=== PATIENT | female | born 1985 | race African-American/Black ===

== ENCOUNTER → 2017-01-15 | Outpatient (CLI) | payer OTHER ==
[~2017-01-15] MED LIST: ALBU1AER9 INH; ATEN-173 PO; FAMO20TA11 PO; GLIP10TA9 PO; IBUP-1427 PO; MELA5CAP PO; METF-384 PO; METF1000 PO; MULT-506 PO; [UNRECOGNIZED DRUG - OTHER] PO
[2017-01-15 18:46] LABS: ESTIMATED AVERAGE GLUCOSE 186 mg/dl; HA1C FLAG Normal (Normal)
== END | disposition home or self-care (01) ==
LOC: C.LAB1850 14:19
PROVIDERS: ATTEND Nurse Practitioner Family
DX: E11.65 Type 2 diabetes mellitus with hyperglycemia (principal)

== ENCOUNTER 2017-05-22 10:24 | Emergency (ER) | payer OTHER ==
[~2017-05-22] VITALS: Ht 162.6 cm; Wt 114.0 kg
[2017-05-22 10:26] VITALS: TEMP 37; Ht 162.6 cm; Wt 114.0 kg
--- NOTE | 2017-05-22 11:15 | EMERGENCY ROOM VISIT NOTE ---
History First contact with patient: 11:03 Chief Complaint: THROAT PAIN/INJURY Stated Complaint: THROAT PAIN History of Present Illness The patient is a 32 year old female who presents to the Emergency Room with complaints of throat pain. The patient reports that she has had pain in the left side of her throat on and off for the past 1-1.5 weeks. She describes the pain as sharp and states it is worse when she is drinking fluids. She rates the discomfort a 7/10. She states the pain is sometimes worse with movement. She denies any difficulty swallowing or difficulty breathing. She denies any chest pain, shortness of breath, cough or fever. She has not been taking any medication for her symptoms. Review of Systems A complete 10 point review of systems was reviewed with the patient with pertinent positives and negatives as per history of present illness. All else were negative. Past Medical/Surgical History Medical Problems: (1) Abdominal pain (2) DIAB CHUCK WO COMPL, TYPE II OR UNSPEC TYPE, NOT UNCNTRLD (3) FAM HX-DIABETES MELLITUS (4) FAMILY HISTORY OF OTHER CARDIOVASCULAR DISEASES (5) Foreign body sensation in throat (6) HTN (hypertension) (7) Left sided numbness (8) MIGRAINE UNSPECIFIED W/O INTRACT MGRN W/O STATUS MIGRAINOSUS (9) MORBID OBESITY (10) OVARIAN CYST NEC/NOS (11) Pharyngitis Family History Diabetes mellitus FH: cancer FH: heart disease FH: seizures Hypertension Social History Smoking Status: Former Smoker Alcohol Use: none Marital Status: single Housing Status: lives with family Occupation Status: unemployed Current/Historical Medications Scheduled Amitriptyline Hcl (Elavil), 10 MG PO HS Atenolol (Tenormin), 25 MG PO QAM Bupropion (Wellbutrin-Xl), 1 TAB PO DAILY Famotidine (Pepcid), 20 MG PO BID Glipizide (Glucotrol), 10 MG PO BID Insulin Aspart (novoLOG INSULIN PUMP ), 1 EA N/A UD Loratadine (Claritin), 10 MG PO DAILY Losartan Potassium (Losartan Potassium), 1 TAB PO DAILY Melatonin (Melatonin), 5 MG PO HS Metformin Hcl (Glucophage), 1,000 MG PO QAM Metformin Hcl (Glucophage), 1,500 MG PO QPM Multivitamin (Multivitamin), 1 TAB PO DAILY Scheduled PRN Albuterol Sulfate (Proair Respiclick), 2 PUFFS INH Q4 PRN for Shortness of Breath Fluticasone Propionate (Nasal) (Flonase Allergy Relief), 1 SPRAYS JANESSA DAILY PRN for ALLERGIES Saline ([place]), 1 SPRY JANESSA Q8 PRN for DRYNESS Physical Exam Vital Signs Date Time Temp Pulse Resp B/P (MAP) Pulse Ox O2 Delivery O2 Flow Rate FiO2 05/22/17 11:24 79 16 155/72 98 05/22/17 10:26 37.0 97 20 167/97 95 Room Air Physical Exam VITALS: Vitals are noted on the nurse's note and reviewed by myself. Vital signs stable. GENERAL: This is a 32-year-old female, in no acute distress, nondiaphoretic, well-developed well-nourished. SKIN: The skin was without rashes. EARS: External auditory canals clear, tympanic membranes pearly prakash without erythema or effusion bilaterally. EYES: Pupils equal round and reactive to light and accommodation. NOSE: Patent, turbinates without inflammation or discharge. MOUTH: Mucous membranes moist. Tonsils are not enlarged. Pharynx without erythema or exudate. Uvula midline. Airway patent. NECK: Supple without nuchal rigidity. There is a slightly enlarged, mobile and tender left anterior cervical lymph node. HEART: Regular rate and rhythm without murmurs gallops or rubs. LUNGS: Clear to auscultation bilaterally without wheezes, rales or rhonchi. NEURO: Patient was alert and oriented to person place and time. Medical Decision & Procedures Medical Decision Differential diagnosis includes strep pharyngitis, mononucleosis, GERD, lymphadenopathy, malignancy, mass, among others. The patient was evaluated as above. On exam she does appear to have a swollen node in the area of her discomfort. This is likely the cause of her pain. She was instructed to use warm compresses and take ibuprofen for symptomatic improvement. She has no difficulty breathing or swallowing ever do not feel that further workup needs to be performed at this time. She was encouraged to follow-up with her primary care provider for further evaluation and recheck of her symptoms. She verbalized understanding of my assessment and treatment plan and was discharged home in good condition. Medication Reconcilliation Current Medication List: was personally reviewed by me Blood Pressure Screening Patient's blood pressure: Elevated blood pressure Blood pressure disposition: Referred to PCP Impression Primary Impression: Throat discomfort Departure Information Dispostion Home / Self-Care Condition GOOD Referrals Neena Mcgrath M.D. (PCP) Patient Instructions My [facility] Additional Instructions You have a swollen lymph node in your neck which is likely causing your pain. For pain control, you can use the following [id number] medicines (if >12 yo): - Regular strength (325mg/tab) Tylenol (acetaminophen) 2 tabs every 4-6 hours as needed. Do not exceed 12 tablets in a 24 hour period. Avoid taking more than 4 grams (4000 mg) of Tylenol per day. This includes any other sources of acetaminophen you may take on a regular basis. - Regular strength (200 mg/tab) Advil (ibuprofen) 1-2 tabs every 4-6 hours as needed. Do not exceed a dose of 3200 mg per day. Follow-up with your primary care provider if your symptoms do not improve within one to 2 weeks. Return to the emergency department with any worsening pain, difficulty swallowing/breathing, or any other new/concerning symptoms.
[2017-05-22] MEDS ORDERED: SALI0.657 NAE (11:22)
[2017-05-22] MEDS ORDERED: CZR25 PO (11:22)
[2017-05-22] MEDS ORDERED: AMIT10TA6 PO (11:22)
[2017-05-22] MEDS ORDERED: BUPRTAB51 PO (11:22)
[2017-05-22] MEDS ORDERED: INSPMPNVLG (11:22)
[2017-05-22] MEDS ORDERED: CLR10 PO (11:22)
[2017-05-22] MEDS ORDERED: FLUT0.15 NAE (11:22)
[2017-05-22] MEDS ORDERED: ALBU18002 INH (11:23)
[2017-05-22 11:24] VITALS: BP 155/72; PULSE 79; O2SAT 98
== END 2017-05-22 11:24 | disposition home or self-care (01) ==
LOC: C.EDB 10:26 → C.EDD 11:24
DX: R07.0 Pain in throat (principal); E11.9 Type 2 diabetes mellitus without complications; Z83.3 Family history of diabetes mellitus; I10 Essential (primary) hypertension; E66.9 Obesity, unspecified; Z82.0 Family history of epilepsy and other diseases of the nervous system; Z82.49 Family history of ischemic heart disease and other diseases of the circulatory system; Z87.891 Personal history of nicotine dependence

== ENCOUNTER 2018-11-18 07:33 | Inpatient (IN) ==
[2018-11-18] MEDS ORDERED: OXYTOCIN 30 UNITS/500 ML BAG IV PRN (09:07)
[2018-11-18] MEDS ORDERED: LACTATED RINGER'S 1,000 ML IV PRN (09:07)
[2018-11-18] MEDS ORDERED: D5W AND 1/4NSS 1,000 ML IV SCH (09:30)
--- NOTE | 2018-11-18 09:41 | Labor Progress Brief Note ---
Date of Service November 18, 2018 Met pt and family H&P done Induction for pregestational DM FHR; CAT1 Ctx; minimal VE ft/soft/post FEW; 7.5lbs by leopards will start Cytotec monitor BS via pump will start insulin drip when in active labor Results & Data Vital Signs (Past 12 Hours) Vital Signs Temp Pulse Resp BP Pulse Ox 11/18/18 08:13 109 H 139/75 11/18/18 08:07 36.9 C 18 97 11/18/18 07:57 111 H 98
[2018-11-18 09:45] LABS: Mean Corpuscular Volume 72.7 fL (80-100); Platelet Count 157 K/uL (130-400); RDW Coefficient of Variation 16.6 % (11.5-14.5); RDW Standard Deviation 44.3 fL (36.4-46.3); Red Blood Count 4.54 M/uL (4.2-5.4); White Blood Count 7.87 K/uL (4.8-10.8)
[2018-11-18] MEDS: miSOPROStol 50 MCG TAB PO SCH ×2 (09:59→14:15)
[2018-11-18 10:09] LABS: Mean Corpuscular Hgb Conc 33.3 g/dL (32-36)
[2018-11-18] MEDS: LACTATED RINGER'S 1,000 ML IV SCH ×2 (10:40→19:00)
[2018-11-18] MEDS ORDERED: miSOPROStol 50 MCG TAB PO SCH (12:00)
[2018-11-18] MEDS ORDERED: DINOPROSTONE 10 MG INSERT PV ONE (21:45)
--- NOTE | 2018-11-18 23:22 | Labor Progress Brief Note ---
Date of Service November 18, 2018 Induction for Pregestational DM Received 2 doses Cytotec FHR; CAT1 Ctx; 2-4mins VE; ft/50/post Will feed pt dinner check BS Reevaluate ctx pattern to see if she can be given another cervical ripening agent ' Results & Data Vital Signs (Past 12 Hours) Vital Signs Temp Pulse Resp BP 11/18/18 23:00 20 11/18/18 22:30 20 11/18/18 22:00 20 11/18/18 21:25 20 11/18/18 21:00 20 11/18/18 20:30 37.0 C 20 11/18/18 20:14 96 H 141/77 H 11/18/18 20:08 20 11/18/18 19:00 20 11/18/18 18:45 20 11/18/18 17:55 20 11/18/18 17:30 20 11/18/18 17:00 20 11/18/18 16:45 16 11/18/18 15:33 97 H 139/73 11/18/18 15:30 20 11/18/18 14:50 36.9 C 20 11/18/18 12:07 102 H 144/72 H 11/18/18 12:00 36.8 C 16
[2018-11-19] MEDS: miSOPROStol 50 MCG TAB PO SCH ×5 (00:16→22:12)
[2018-11-19] MEDS: LACTATED RINGER'S 1,000 ML IV SCH ×3 (02:20→17:13)
--- NOTE | 2018-11-19 08:53 | Obstetrical Progress Note ---
Date of Service November 19, 2018 Physical Exam Genitourinary: Manual OB Exam: + cervical dilation fingertip, + cervical effacement 50% and + station high OB Exam Monitor Tracing: + external FHT monitor used, + external uterine monitor used, + category I and + normal FHT variability Will allow to shower plan for Cytotec for day 2 IOL for diabetes EFW 8.5 lbs. Results & Data Vital Signs (Past 12 Hours) Vital Signs Temp Pulse Resp BP 11/19/18 07:02 37.0 C 100 H 20 134/73 11/19/18 06:25 36.9 C 18 11/19/18 06:10 100 H 127/71 11/19/18 05:07 18 11/19/18 02:00 18 11/19/18 01:00 18 11/18/18 23:19 106 H 128/64 11/18/18 23:11 36.9 C 18 11/18/18 23:00 20 11/18/18 22:30 20 11/18/18 22:00 20 11/18/18 21:25 20 11/18/18 21:00 20
--- NOTE | 2018-11-19 18:46 | Obstetrical Progress Note ---
Date of Service November 19, 2018 Physical Exam Genitourinary: Manual OB Exam: + cervical dilation 1 cm, + cervical effacement 50% and + station high OB Exam Monitor Tracing: + external FHT monitor used, + external uterine monitor used, + category I and + normal FHT variability blood sugars OK contractions every 3-4 minutes Results & Data Vital Signs (Past 12 Hours) Vital Signs Temp Pulse Resp BP 11/19/18 18:24 36.8 C 90 18 142/87 H 11/19/18 15:35 36.9 C 95 H 18 143/79 H 11/19/18 12:03 36.9 C 100 H 20 150/77 H 11/19/18 09:37 36.9 C 102 H 18 134/74 11/19/18 07:02 37.0 C 100 H 20 134/73
[2018-11-19] MEDS ORDERED: PHARMACY GLYCEMIC MGMT CONSULT PRN (20:55)
[2018-11-19] MEDS ORDERED: Nursing to Pharmacy Communication ONE (21:19)
[2018-11-19] MEDS ORDERED: GLUCAGON FOR INJ 1 MG VIAL SQ PRN (21:30)
[2018-11-19] MEDS ORDERED: INSULIN ASPART 100 UNITS/ML VIAL SC PRN (21:30)
[2018-11-19] MEDS ORDERED: GLUCOSE 40% GEL 15 GM TUBE PO PRN (21:30)
[2018-11-19] MEDS ORDERED: DEXTROSE 50% 50 ML SYRINGE IV PRN (21:30)
[2018-11-19] MEDS ORDERED: CARBOHYDRATES FOR HYPOGLYCEMIA PO PRN (21:30)
[2018-11-19] MEDS ORDERED: GLUCOSE 10 TABS/TUBE PO PRN (21:30)
[2018-11-19] MEDS: BUTORPHANOL TARTRATE 2 MG/ML VIAL IV PRN (22:08)
[2018-11-20] MEDS: LACTATED RINGER'S 1,000 ML IV SCH ×4 (01:21→20:06)
[2018-11-20] MEDS: BUTORPHANOL TARTRATE 2 MG/ML VIAL IV PRN (01:52)
[2018-11-20] MEDS: miSOPROStol 50 MCG TAB PO SCH ×2 (02:19→07:11)
[2018-11-20] MEDS: NovoLOG INSULIN PUMP SCH ×2 (08:10→14:34)
[2018-11-20] MEDS ORDERED: OXYTOCIN 30 UNITS/500 ML BAG IV PRN (10:23)
--- NOTE | 2018-11-20 10:26 | Labor Progress Brief Note ---
Date of Service November 20, 2018 Pt doing well Induction for pregestational DM Day 3 s/P 2 days of cervical ripening FHR; CAT1 Ctx 2-4mins VE; /50/-3 will start Pitocin Results & Data Vital Signs (Past 12 Hours) Vital Signs Temp Pulse Resp BP Pulse Ox 11/20/18 08:56 97 H 96 11/20/18 08:51 96 H 96 11/20/18 08:46 98 H 95 11/20/18 08:41 95 H 96 11/20/18 08:36 101 H 97 11/20/18 07:06 36.8 C 89 18 134/77 11/20/18 03:48 96 H 94 11/20/18 03:46 97 H 94 11/20/18 03:43 97 H 95 11/20/18 03:38 91 H 95 11/20/18 03:33 94 H 94 11/20/18 03:28 94 H 94 11/20/18 03:23 92 H 95 11/20/18 03:21 94 H 94 11/20/18 03:18 94 H 94 11/20/18 03:15 95 H 94 11/20/18 03:13 97 H 96 11/20/18 03:08 96 H 95 11/20/18 03:03 97 H 95 11/20/18 02:52 99 H 95 11/20/18 02:47 96 H 94 11/20/18 02:42 96 H 95 11/20/18 02:41 98 H 94 11/20/18 02:37 99 H 94 11/20/18 02:35 96 H 94 11/20/18 02:32 97 H 94 11/20/18 02:30 96 H 94 11/20/18 02:27 94 H 94 11/20/18 02:24 92 H 94 11/20/18 02:22 96 H 95 11/20/18 02:18 92 H 94 11/20/18 02:17 93 H 93 11/20/18 02:12 89 94 11/20/18 02:07 89 94 11/20/18 02:02 90 95 11/20/18 01:58 91 H 94 11/20/18 01:57 95 H 95 11/20/18 01:55 90 141/79 H 11/20/18 01:52 97 H 97 11/20/18 01:47 101 H 96 11/20/18 01:42 102 H 95 11/19/18 23:57 88 96 11/19/18 23:52 90 97 11/19/18 23:46 105 H 93 11/19/18 23:44 90 97 11/19/18 23:39 94 H 96 11/19/18 23:34 87 97 11/19/18 23:29 88 95 11/19/18 23:24 89 95 11/19/18 23:21 90 94 11/19/18 23:19 85 95 11/19/18 23:14 91 H 94 11/19/18 23:09 86 95 11/19/18 23:04 104 H 95 11/19/18 23:03 90 94 11/19/18 22:59 92 H 94 11/19/18 22:57 93 H 94 11/19/18 22:54 91 H 94 11/19/18 22:51 86 94 11/19/18 22:49 96 H 93 11/19/18 22:45 88 93 11/19/18 22:44 90 94 11/19/18 22:39 91 H 95 11/19/18 22:34 91 H 95 11/19/18 22:33 92 H 94 11/19/18 22:29 86 94 11/19/18 22:28 94 H 94
--- NOTE | 2018-11-20 13:39 | Pharmacy Report ---
Glycemic Control Consultation - Date of Service November 20, 2018 - Scope Scope: Glycemic Pharmacist consulted by Dr Resendez on 11/19/18 for glycemic control and to write orders per [facility] inpatient glycemic control protocol - Objective Weight: 118.841 kg Accuchecks BSG (last 24hrs): 11/19/18 11/19/18 11/19/18 13:34 15:33 17:30 POC Glucose 87 78 77 11/19/18 11/19/18 11/19/18 19:30 21:33 23:33 POC Glucose 74 97 59 L* 11/20/18 11/20/18 11/20/18 00:00 01:50 03:42 POC Glucose 78 126 H 64 L* 11/20/18 11/20/18 11/20/18 03:44 04:26 06:28 POC Glucose 69 L* 105 H 61 L* 11/20/18 11/20/18 11/20/18 06:51 08:55 10:57 POC Glucose 87 147 H 58 L* 11/20/18 11/20/18 11/20/18 10:59 11:20 12:32 POC Glucose 57 L* 88 46 L* 11/20/18 11/20/18 12:33 12:55 POC Glucose 50 L* 78 - Recent Pertinent Medications Outpatient Anti-diabetic Regimen: * Insulin pump: 2.5u/hr 2747-7104, 2.75u/hr 5848-0448, 2.9u/hr 5847-0215 * A1c = unreliable during - Assessment & Plan Assessment & Plan: ASSESSMENT: * Ms. Worrell is a 33yo AA F unbeknownst to the pharmacy glycemic service. PMHx consistent with: DM-II, PCOS, h/o migraines, obesity. ? Possible hypoglycemia unawareness? She was admitted evening of 11/19/18 with her insulin pump (please see settings above). Today, she has recurrent lows: 40s, 50s. * I spoke with patient bedside and had her reduce her basal rate by 10%. Spoke with nursing, it was decided we will initiate insulin infusion/IVFs per L&D p rotocols once she goes into active labor. If she continues to have lows, please start insulin infusion prior to active labor. PLAN FOR INPATIENT GLYCEMIC CONTROL: * Starting IV insulin infusion per L & D protocol * Goal Range 90 - 105 mg/dl * Please see IVFs orders * Please note that the plan above was derived based on current level of insulin resistance and hospital stress. These recommendations are appropriate for inpatient admission only. Plan of care upon discharge will need to be reassessed to avoid potential outpatient hypo/hyperglycemia. Thank you.
[2018-11-20] MEDS ORDERED: SODIUM CHLORIDE 0.9% 1000ML 1,000 ML IV PRN (14:00)
[2018-11-20] MEDS ORDERED: INSULIN REGULAR 250 UNITS in SODIUM CHLORIDE 0.9% 247.5 ML IV PRN (14:00)
[2018-11-20] MEDS: DEXTROSE 5% 1,000 ML IV SCH (16:00)
[2018-11-20] MEDS ORDERED: ePHEDrine sulfate 50 MG/ML AMP ONE (16:21)
[2018-11-20] MEDS ORDERED: BUPIVACAINE 0.25% 30 ML VIAL ONE (16:21)
[2018-11-20] MEDS ORDERED: fentaNYL citrate 100 MCG/2 ML VIAL ONE (16:22)
[2018-11-20] MEDS ORDERED: fentaNYL 2MCG/ML ROPIV 1.25MG/ML 100 ML BAG EPI ONE (16:22)
--- NOTE | 2018-11-20 16:34 | Anesthesiology Consultation ---
Date of Service November 20, 2018 Assessment & Plan (1) Encounter for pre-operative examination: Chart Review Chart Review: Acceptable Risk for Labor Epidural History Height/Weight Height: 5 ft 4 in Weight: 118.841 kg Allergies Allergy/AdvReac Type Severity Reaction Status Date / Time lisinopril AdvReac Intermediate COUGH Verified 11/18/18 07:58 peach AdvReac Verified 11/19/18 11:33 pineapple AdvReac Verified 11/19/18 11:33 fruit Allergy Swelling Uncoded 11/18/18 07:58 of Lip/Tongue/Throat Medications Home Medications Medication Instructions Recorded Confirmed Last Taken aspirin 81 mg PO DAILY 11/18/18 11/18/18 11/18/18 ferrous sulfate 325 mg PO DAILY 11/18/18 11/18/18 11/18/18 insulin aspart U-100 [Novolog 1 sliding scale dose CONTINUOUS 11/18/18 11/18/18 11/18/18 U-100 Insulin aspart] SUBCUTANEOUS INFUSION USEASDIRECTD metformin 1,000 mg PO DAILY 11/18/18 11/18/18 11/18/18 metformin 1,500 mg PO DAILY 11/18/18 11/18/18 11/17/18 vit [id number] 1 tab PO DAILY 11/18/18 11/18/18 11/18/18 [ Vitamin] vitamin B complex [B 1 tab PO DAILY 11/18/18 11/18/18 11/18/18 Complex-Vitamin B12] Active Medications Generic Name Dose Route Start Last Admin Trade Name Freq PRN Reason Stop Dose Admin Lactated Ringer's 1,000 mls @ 125 mls/hr 11/18/18 10:30 11/20/18 10:11 Lr IV 12/18/18 10:29 125 mls/hr .Q8H LILA Administration Oxytocin 30 units in 500 mls @ 8 mls/hr 11/20/18 10:23 11/20/18 14:12 Pitocin IV 11/22/18 10:22 0.48 units/hr .Q24H PRN 8 mls/hr Labor Induction/Augmentation Titration Protocol 0.48 UNITS/HR Dextrose 1,000 mls @ 100 mls/hr 11/20/18 14:00 11/20/18 16:00 D5w IV 12/20/18 13:59 100 mls/hr .Q10H LILA Administration Protocol Insulin Human Regular 250 250 mls @ 0 mls/hr 11/20/18 14:00 11/20/18 16:09 units/ Sodium Chloride IV 12/20/18 13:59 0.5 mls/hr Q24H PRN Administration BSG 80mg/dL or above Protocol Per Protocol Insulin Aspart 1 ea 11/20/18 07:30 11/20/18 14:34 Novolog Insulin Pump N/A 12/20/18 07:29 Not Given ACHS LILA Protocol Insulin Aspart 0 units 11/19/18 21:30 11/19/18 21:35 Novolog Aspart SC 12/19/18 21:29 1,000 units PRN PRN Administration MANAGE SUGARS Miscellaneous 1 ea 11/20/18 14:00 11/20/18 14:36 Pending Order N/A 12/20/18 13:59 Not Given Q3H LILA Past Medical History Medical History HTN (hypertension) (Chronic) for past 6 years; has been on Lisinopril in past but now allergic; also on Atenolol but not on meds currently due to Chronic back pain since 2011 Diabetic neuropathy left foot History of PCOS since 2013 Hx of migraines since age 11 Type 2 diabetes mellitus for past 8 years; using Insulin pump for past 2 years Past Family History Family History Mother Diabetes Hypertension Stroke Grandmother No problems noted. Father Diabetes Grandmother (Maternal) Diabetes Hypertension Stroke Past Surgical History Surgical History History of left salpingo-oophorectomy 2016 Hx of appendectomy age 13 Social History Smoking Status: Former smoker tobacco type: cigarettes Smoking End Date: 10 years ago Hx Alcohol Use: No Hx Substance Use: No substance use type: does not use Physical Exam Vital Signs Last Vital Signs Temp 36.9 C 11/20/18 15:15 Pulse 86 11/20/18 16:27 Resp 18 11/20/18 15:15 BP 137/70 11/20/18 15:27 Pulse Ox 100 11/20/18 16:27 Testing Laboratory Results 11/18/18 09:28 11/20/18 11/20/18 11/20/18 15:56 14:19 13:59 POC Glucose 91 74 64 L* 11/20/18 11/20/18 11/20/18 13:58 12:55 12:33 POC Glucose 65 L* 78 50 L* 11/20/18 11/20/18 11/20/18 12:32 11:20 10:59 POC Glucose 46 L* 88 57 L* 11/20/18 11/20/18 11/20/18 10:57 08:55 06:51 POC Glucose 58 L* 147 H 87 11/20/18 06:28 POC Glucose 61 L*
[2018-11-20] MEDS ORDERED: NALOXONE HCL 1 MG in SODIUM CHLORIDE 0.9% 1000ML 1,000 ML IV PRN (17:19)
[2018-11-20] MEDS ORDERED: NALOXONE HCL 0.4 MG/1 ML VIAL/CARP IV PRN (17:19)
[2018-11-20] MEDS ORDERED: ONDANSETRON INJ 2 MG/ML 2 ML VIAL IV PRN (17:19)
[2018-11-20] MEDS ORDERED: ePHEDrine sulfate 50 MG/ML AMP IV PRN (17:19)
[2018-11-20] MEDS: fentaNYL 2MCG/ML ROPIV 1.25MG/ML 100 ML BAG EPI PRN (23:37)
[2018-11-20] MEDS ORDERED: Nursing to Pharmacy Communication ONE (23:40)
[2018-11-21] MEDS: fentaNYL 2MCG/ML ROPIV 1.25MG/ML 100 ML BAG EPI PRN ×3 (01:14→14:22)
[2018-11-21] MEDS: DEXTROSE 5% 1,000 ML IV SCH ×2 (02:32→14:29)
[2018-11-21] MEDS: LACTATED RINGER'S 1,000 ML IV SCH (03:14)
--- NOTE | 2018-11-21 05:25 | Labor Progress Brief Note ---
Date of Service November 21, 2018 Pt doing well FHR ; CAT1 scalp electrode on Ctx':1-2 mins VE; 6/100/-2 +meconium seen Pitocin d/sharee oxygen mask on Results & Data Vital Signs (Past 12 Hours) Vital Signs Temp Pulse Resp BP Pulse Ox 11/21/18 05:18 100 H 97 11/21/18 05:13 107 H 97 11/21/18 05:08 108 H 94 11/21/18 05:03 90 96 11/21/18 04:58 92 H 96 11/21/18 04:53 92 H 96 11/21/18 04:50 103 H 94 11/21/18 04:48 94 H 97 11/21/18 04:43 95 H 96 11/21/18 04:38 95 H 98 11/21/18 04:36 98 H 94 11/21/18 04:33 92 H 96 11/21/18 04:28 94 H 96 11/21/18 04:27 37.2 C 18 11/21/18 04:23 92 H 95 11/21/18 04:18 93 H 94 11/21/18 04:15 97 H 135/79 11/21/18 04:13 93 H 94 11/21/18 04:08 93 H 94 11/21/18 04:06 93 H 94 11/21/18 04:03 94 H 94 11/21/18 04:01 94 H 94 11/21/18 03:58 92 H 95 11/21/18 03:55 92 H 94 11/21/18 03:53 94 H 94 11/21/18 03:50 94 H 94 11/21/18 03:48 95 H 94 11/21/18 03:44 97 H 94 11/21/18 03:43 98 H 94 11/21/18 03:38 97 H 94 11/21/18 03:33 98 H 94 11/21/18 03:28 97 H 95 11/21/18 03:27 96 H 94 11/21/18 03:23 97 H 94 11/21/18 03:22 97 H 94 11/21/18 03:18 98 H 95 11/21/18 03:15 37.3 C 99 H 18 135/75 94 11/21/18 03:13 99 H 95 11/21/18 03:10 98 H 94 11/21/18 03:08 98 H 95 11/21/18 03:03 104 H 95 11/21/18 03:02 100 H 94 11/21/18 02:57 100 H 94 11/21/18 02:52 99 H 92 11/21/18 02:47 100 H 94 11/21/18 02:46 98 H 94 11/21/18 02:42 99 H 94 11/21/18 02:37 100 H 94 11/21/18 02:32 102 H 94 11/21/18 02:29 101 H 94 11/21/18 02:27 102 H 94 11/21/18 02:24 105 H 94 11/21/18 02:22 104 H 95 11/21/18 02:18 104 H 94 11/21/18 02:17 99 H 95 11/21/18 02:15 100 H 153/74 H 11/21/18 02:12 101 H 95 11/21/18 02:08 100 H 94 11/21/18 02:07 101 H 95 11/21/18 02:02 106 H 94 11/21/18 02:00 100 H 94 11/21/18 01:57 99 H 95 11/21/18 01:53 105 H 94 11/21/18 01:52 99 H 94 11/21/18 01:47 102 H 94 11/21/18 01:42 104 H 95 11/21/18 01:41 101 H 94 11/21/18 01:37 101 H 95 11/21/18 01:36 100 H 94 11/21/18 01:32 106 H 95 11/21/18 01:27 97 H 95 11/21/18 01:22 37.4 C 107 H 18 147/74 H 95 11/21/18 01:17 106 H 96 11/21/18 01:12 101 H 96 11/21/18 01:10 100 H 94 11/21/18 01:07 98 H 96 11/21/18 01:02 101 H 96 11/21/18 00:57 96 H 95 11/21/18 00:56 98 H 94 11/21/18 00:52 102 H 95 11/21/18 00:47 96 H 96 11/21/18 00:42 110 H 97 11/21/18 00:37 105 H 96 11/21/18 00:32 104 H 95 11/21/18 00:27 107 H 96 11/21/18 00:23 120 H 94 11/21/18 00:22 110 H 98 11/21/18 00:17 104 H 136/63 96 11/21/18 00:12 107 H 97 11/21/18 00:07 101 H 95 11/21/18 00:02 101 H 97 11/20/18 23:57 96 H 98 11/20/18 23:52 103 H 97 11/20/18 23:47 109 H 97 11/20/18 23:42 105 H 98 11/20/18 23:37 107 H 98 11/20/18 23:32 112 H 98 11/20/18 23:27 103 H 96 11/20/18 23:22 106 H 95 11/20/18 23:17 108 H 97 11/20/18 23:15 37.3 C 16 11/20/18 23:14 102 H 138/68 11/20/18 23:12 101 H 96 11/20/18 23:07 108 H 96 11/20/18 23:02 108 H 98 11/20/18 22:58 106 H 130/66 11/20/18 22:57 111 H 97 11/20/18 22:52 105 H 96 11/20/18 22:47 109 H 95 11/20/18 22:44 104 H 130/70 11/20/18 22:42 104 H 95 11/20/18 22:37 103 H 95 11/20/18 22:32 104 H 95 11/20/18 22:30 103 H 136/66 11/20/18 22:27 99 H 95 11/20/18 22:22 99 H 95 11/20/18 22:17 101 H 96 11/20/18 22:13 96 H 136/67 11/20/18 22:12 102 H 96 11/20/18 22:07 99 H 97 11/20/18 22:02 102 H 99 11/20/18 21:59 98 H 133/68 11/20/18 21:57 99 H 98 11/20/18 21:52 100 H 99 11/20/18 21:47 110 H 99 11/20/18 21:43 96 H 136/66 11/20/18 21:42 100 H 99 11/20/18 21:37 98 H 99 11/20/18 21:32 104 H 98 11/20/18 21:30 102 H 135/67 11/20/18 21:27 99 H 97 11/20/18 21:22 97 H 98 11/20/18 21:17 93 H 96 11/20/18 21:15 100 H 160/89 H 11/20/18 21:12 100 H 99 11/20/18 21:07 104 H 99 11/20/18 21:02 104 H 97 11/20/18 20:59 99 H 164/83 H 11/20/18 20:57 102 H 98 11/20/18 20:52 103 H 97 11/20/18 20:47 104 H 98 11/20/18 20:45 96 H 156/95 H 11/20/18 20:42 92 H 97 11/20/18 20:37 91 H 96 11/20/18 20:32 98 H 97 11/20/18 20:29 91 H 137/68 11/20/18 20:27 100 H 98 11/20/18 20:22 99 H 96 11/20/18 20:20 94 H 155/81 H 11/20/18 20:17 97 H 96 11/20/18 20:12 91 H 99 11/20/18 20:07 95 H 98 11/20/18 20:02 90 99 11/20/18 19:59 36.9 C 96 H 18 139/82 11/20/18 19:57 95 H 98 11/20/18 19:52 91 H 98 11/20/18 19:47 91 H 100 11/20/18 19:43 93 H 145/95 H 11/20/18 19:42 89 99 11/20/18 19:37 90 100 11/20/18 19:32 90 100 11/20/18 19:29 91 H 145/95 H 11/20/18 19:28 95 H 93 11/20/18 19:27 98 H 100 11/20/18 19:22 99 H 97 11/20/18 19:21 88 90 11/20/18 19:17 92 H 95 11/20/18 19:16 97 H 94 11/20/18 19:12 102 H 97 11/20/18 19:11 88 93 11/20/18 19:07 99 H 88 L 11/20/18 19:06 93 H 92 11/20/18 19:02 92 H 100 11/20/18 18:59 20 11/20/18 18:57 86 97 11/20/18 18:52 85 99 11/20/18 18:47 85 98 11/20/18 18:44 89 141/72 H 11/20/18 18:42 90 100 11/20/18 18:37 92 H 100 11/20/18 18:32 96 H 100 11/20/18 18:28 100 H 18 139/74 11/20/18 18:27 91 H 100 11/20/18 18:22 97 H 100 11/20/18 18:17 85 100 11/20/18 18:13 95 H 138/71 11/20/18 18:12 89 100 11/20/18 18:07 85 100 11/20/18 18:02 90 100 11/20/18 17:59 87 125/69 11/20/18 17:57 89 100 11/20/18 17:52 94 H 100 11/20/18 17:47 92 H 100 11/20/18 17:42 86 100 11/20/18 17:41 88 134/66 11/20/18 17:38 90 134/69 11/20/18 17:37 96 H 99 11/20/18 17:35 96 H 101/55 L 11/20/18 17:32 88 114/58 L 97 11/20/18 17:29 91 H 115/56 L 11/20/18 17:27 89 99 11/20/18 17:26 89 115/59 L 11/20/18 17:23 90 115/59 L 11/20/18 17:22 97 H 98
[2018-11-21] MEDS ORDERED: Nursing to Pharmacy Communication ONE (06:19)
[2018-11-21] MEDS ORDERED: LACTATED RINGER'S 1,000 ML IV SCH ×4 (06:30→17:45)
--- NOTE | 2018-11-21 08:56 | Labor Progress Brief Note ---
Date of Service November 21, 2018 Pt doing well preg. DM AROM + meconium FHR; CAT1 Pit; OFF VE; 9/100/-1 Results & Data Vital Signs (Past 12 Hours) Vital Signs Temp Pulse Resp BP Pulse Ox 11/21/18 08:53 98 H 98 11/21/18 08:48 109 H 97 11/21/18 08:43 105 H 99 11/21/18 08:38 92 H 96 11/21/18 08:33 90 96 11/21/18 08:28 90 95 11/21/18 08:23 93 H 96 11/21/18 08:18 91 H 96 11/21/18 08:16 93 H 132/63 11/21/18 08:13 90 96 11/21/18 08:08 93 H 98 11/21/18 08:03 98 H 98 11/21/18 08:00 20 11/21/18 07:58 97 H 98 11/21/18 07:53 114 H 96 11/21/18 07:48 96 H 96 11/21/18 07:43 90 96 11/21/18 07:38 92 H 95 11/21/18 07:33 92 H 96 11/21/18 07:30 20 11/21/18 07:28 93 H 96 11/21/18 07:23 93 H 97 11/21/18 07:18 93 H 95 11/21/18 07:15 90 137/88 11/21/18 07:13 95 H 95 11/21/18 07:08 103 H 98 11/21/18 07:03 97 H 95 11/21/18 07:00 37.4 C 16 11/21/18 06:59 99 H 93 11/21/18 06:58 96 H 93 11/21/18 06:53 98 H 94 11/21/18 06:48 105 H 89 L 11/21/18 06:43 93 H 86 L 11/21/18 06:39 91 H 94 11/21/18 06:38 91 H 94 11/21/18 06:34 99 H 94 11/21/18 06:33 93 H 95 11/21/18 06:29 93 H 94 11/21/18 06:28 91 H 95 11/21/18 06:24 91 H 94 11/21/18 06:23 93 H 95 11/21/18 06:19 94 H 94 11/21/18 06:18 91 H 94 11/21/18 06:15 37.1 C 100 H 18 145/85 H 11/21/18 06:13 93 H 98 11/21/18 06:08 95 H 94 11/21/18 06:03 92 H 94 11/21/18 06:01 92 H 94 11/21/18 05:58 92 H 95 11/21/18 05:55 92 H 94 11/21/18 05:53 94 H 94 11/21/18 05:50 92 H 94 11/21/18 05:48 95 H 94 11/21/18 05:45 94 H 94 11/21/18 05:43 93 H 95 11/21/18 05:39 96 H 94 11/21/18 05:38 96 H 95 11/21/18 05:33 99 H 96 11/21/18 05:29 37.1 C 18 11/21/18 05:28 104 H 92 11/21/18 05:23 110 H 97 11/21/18 05:18 100 H 97 11/21/18 05:13 107 H 97 11/21/18 05:08 108 H 94 11/21/18 05:03 90 96 11/21/18 04:58 92 H 96 11/21/18 04:53 92 H 96 11/21/18 04:50 103 H 94 11/21/18 04:48 94 H 97 11/21/18 04:43 95 H 96 11/21/18 04:38 95 H 98 11/21/18 04:36 98 H 94 11/21/18 04:33 92 H 96 11/21/18 04:28 94 H 96 11/21/18 04:27 37.2 C 18 11/21/18 04:23 92 H 95 11/21/18 04:18 93 H 94 11/21/18 04:15 97 H 135/79 11/21/18 04:13 93 H 94 11/21/18 04:08 93 H 94 11/21/18 04:06 93 H 94 11/21/18 04:03 94 H 94 11/21/18 04:01 94 H 94 11/21/18 03:58 92 H 95 11/21/18 03:55 92 H 94 11/21/18 03:53 94 H 94 07/14 03:50 94 H 94 07/14/19 03:48 95 H 94 07/14 03:44 97 H 94 14 03:43 98 H 94 0714 03:38 97 H 94 14 03:33 98 H 94 14 03:28 97 H 95 11/21/18 03:27 96 H 94 11/21/18 03:23 97 H 94 11/21/18 03:22 97 H 94 14 03:18 98 H 95 14 03:15 37.3 C 99 H 18 135/75 94 11/21/18 03:13 99 H 95 11/21/18 03:10 98 H 94 11/21/18 03:08 98 H 95 11/21/18 03:03 104 H 95 11/21/18 03:02 100 H 94 11/21/18 02:57 100 H 94 11/21/18 02:52 99 H 92 11/21/18 02:47 100 H 94 11/21/18 02:46 98 H 94 14 02:42 99 H 94 11/21/18 02:37 100 H 94 14 02:32 102 H 94 11/21/18 02:29 101 H 94 11/21/18 02:27 102 H 94 11/21/18 02:24 105 H 94 11/21/18 02:22 104 H 95 11/21/18 02:18 104 H 94 11/21/18 02:17 99 H 95 11/21/18 02:15 100 H 153/74 H 11/21/18 02:12 101 H 95 1419 02:08 100 H 94 11/21/18 02:07 101 H 95 14 02:02 106 H 94 11/21/18 02:00 100 H 94 11/21/18 01:57 99 H 95 11/21/18 01:53 105 H 94 11/21/18 01:52 99 H 94 11/21/18 01:47 102 H 94 11/21/18 01:42 104 H 95 14 01:41 101 H 94 11/21/18 01:37 101 H 95 11/21/18 01:36 100 H 94 11/21/18 01:32 106 H 95 11/21/18 01:27 97 H 95 11/21/18 01:22 37.4 C 107 H 18 147/74 H 95 11/21/18 01:17 106 H 96 11/21/18 01:12 101 H 96 11/21/18 01:10 100 H 94 11/21/18 01:07 98 H 96 11/21/18 01:02 101 H 96 11/21/18 00:57 96 H 95 11/21/18 00:56 98 H 94 11/21/18 00:52 102 H 95 11/21/18 00:47 96 H 96 11/21/18 00:42 110 H 97 11/21/18 00:37 105 H 96 11/21/18 00:32 104 H 95 11/21/18 00:27 107 H 96 11/21/18 00:23 120 H 94 11/21/18 00:22 110 H 98 11/21/18 00:17 104 H 136/63 96 11/21/18 00:12 107 H 97 11/21/18 00:07 101 H 95 11/21/18 00:02 101 H 97 11/20/18 23:57 96 H 98 11/20/18 23:52 103 H 97 11/20/18 23:47 109 H 97 11/20/18 23:42 105 H 98 11/20/18 23:37 107 H 98 11/20/18 23:32 112 H 98 11/20/18 23:27 103 H 96 11/20/18 23:22 106 H 95 11/20/18 23:17 108 H 97 11/20/18 23:15 37.3 C 16 11/20/18 23:14 102 H 138/68 11/20/18 23:12 101 H 96 11/20/18 23:07 108 H 96 11/20/18 23:02 108 H 98 11/20/18 22:58 106 H 130/66 11/20/18 22:57 111 H 97 11/20/18 22:52 105 H 96 11/20/18 22:47 109 H 95 11/20/18 22:44 104 H 130/70 11/20/18 22:42 104 H 95 11/20/18 22:37 103 H 95 11/20/18 22:32 104 H 95 07/13/19 22:30 103 H 136/66 11/20/18 22:27 99 H 95 11/20/18 22:22 99 H 95 11/20/18 22:17 101 H 96 11/20/18 22:13 96 H 136/67 11/20/18 22:12 102 H 96 11/20/18 22:07 99 H 97 11/20/18 22:02 102 H 99 11/20/18 21:59 98 H 133/68 11/20/18 21:57 99 H 98 11/20/18 21:52 100 H 99 11/20/18 21:47 110 H 99 11/20/18 21:43 96 H 136/66 11/20/18 21:42 100 H 99 11/20/18 21:37 98 H 99 11/20/18 21:32 104 H 98 11/20/18 21:30 102 H 135/67 11/20/18 21:27 99 H 97 11/20/18 21:22 97 H 98 11/20/18 21:17 93 H 96 11/20/18 21:15 100 H 160/89 H 11/20/18 21:12 100 H 99 11/20/18 21:07 104 H 99 11/20/18 21:02 104 H 97 11/20/18 20:59 99 H 164/83 H 11/20/18 20:57 102 H 98
--- NOTE | 2018-11-21 12:10 | Labor Progress Brief Note ---
Date of Service November 21, 2018 Pt fully dilated with anterior lip ctx 2-3 will start pushing when fully dilated Results & Data Vital Signs (Past 12 Hours) Vital Signs Temp Pulse Resp BP Pulse Ox 11/21/18 12:03 102 H 96 11/21/18 11:58 100 H 98 11/21/18 11:53 99 H 99 11/21/18 11:48 110 H 98 11/21/18 11:43 104 H 98 11/21/18 11:38 105 H 98 11/21/18 11:33 103 H 98 11/21/18 11:28 105 H 99 11/21/18 11:23 98 H 96 11/21/18 11:18 103 H 98 11/21/18 11:17 99 H 124/62 11/21/18 11:13 98 H 97 11/21/18 11:08 103 H 97 11/21/18 11:03 106 H 98 11/21/18 11:00 37.2 C 18 11/21/18 10:58 97 H 94 11/21/18 10:53 97 H 94 11/21/18 10:48 98 H 94 11/21/18 10:43 96 H 94 11/21/18 10:38 94 H 95 11/21/18 10:33 95 H 95 11/21/18 10:30 18 11/21/18 10:28 94 H 95 11/21/18 10:23 97 H 94 11/21/18 10:18 95 H 95 11/21/18 10:15 96 H 134/68 11/21/18 10:13 95 H 96 11/21/18 10:08 109 H 97 11/21/18 10:03 97 H 98 11/21/18 09:58 97 H 96 11/21/18 09:53 93 H 96 11/21/18 09:48 97 H 97 11/21/18 09:43 94 H 98 11/21/18 09:38 94 H 98 11/21/18 09:33 96 H 98 11/21/18 09:30 18 11/21/18 09:28 100 H 99 11/21/18 09:23 98 H 100 11/21/18 09:18 98 H 99 11/21/18 09:15 93 H 127/63 11/21/18 09:13 96 H 99 11/21/18 09:08 100 H 98 07/14/19 09:03 97 H 98 11/21/18 09:00 37.4 C 18 11/21/18 08:58 100 H 98 11/21/18 08:53 98 H 98 11/21/18 08:48 109 H 97 11/21/18 08:43 105 H 99 11/21/18 08:38 92 H 96 11/21/18 08:33 90 96 11/21/18 08:30 20 11/21/18 08:28 90 95 11/21/18 08:23 93 H 96 11/21/18 08:18 91 H 96 11/21/18 08:16 93 H 132/63 11/21/18 08:13 90 96 11/21/18 08:08 93 H 98 11/21/18 08:03 98 H 98 11/21/18 08:00 20 11/21/18 07:58 97 H 98 11/21/18 07:53 114 H 96 11/21/18 07:48 96 H 96 11/21/18 07:43 90 96 11/21/18 07:38 92 H 95 11/21/18 07:33 92 H 96 11/21/18 07:30 20 11/21/18 07:28 93 H 96 11/21/18 07:23 93 H 97 11/21/18 07:18 93 H 95 11/21/18 07:15 90 137/88 11/21/18 07:13 95 H 95 11/21/18 07:08 103 H 98 11/21/18 07:03 97 H 95 11/21/18 07:00 37.4 C 16 11/21/18 06:59 99 H 93 11/21/18 06:58 96 H 93 11/21/18 06:53 98 H 94 11/21/18 06:48 105 H 89 L 11/21/18 06:43 93 H 86 L 11/21/18 06:39 91 H 94 11/21/18 06:38 91 H 94 11/21/18 06:34 99 H 94 11/21/18 06:33 93 H 95 11/21/18 06:29 93 H 94 11/21/18 06:28 91 H 95 11/21/18 06:24 91 H 94 11/21/18 06:23 93 H 95 11/21/18 06:19 94 H 94 11/21/18 06:18 91 H 94 11/21/18 06:15 37.1 C 100 H 18 145/85 H 11/21/18 06:13 93 H 98 11/21/18 06:08 95 H 94 11/21/18 06:03 92 H 94 11/21/18 06:01 92 H 94 11/21/18 05:58 92 H 95 11/21/18 05:55 92 H 94 11/21/18 05:53 94 H 94 11/21/18 05:50 92 H 94 11/21/18 05:48 95 H 94 11/21/18 05:45 94 H 94 11/21/18 05:43 93 H 95 11/21/18 05:39 96 H 94 11/21/18 05:38 96 H 95 11/21/18 05:33 99 H 96 11/21/18 05:29 37.1 C 18 11/21/18 05:28 104 H 92 11/21/18 05:23 110 H 97 11/21/18 05:18 100 H 97 11/21/18 05:13 107 H 97 11/21/18 05:08 108 H 94 11/21/18 05:03 90 96 11/21/18 04:58 92 H 96 11/21/18 04:53 92 H 96 11/21/18 04:50 103 H 94 11/21/18 04:48 94 H 97 11/21/18 04:43 95 H 96 11/21/18 04:38 95 H 98 11/21/18 04:36 98 H 94 11/21/18 04:33 92 H 96 11/21/18 04:28 94 H 96 11/21/18 04:27 37.2 C 18 11/21/18 04:23 92 H 95 11/21/18 04:18 93 H 94 11/21/18 04:15 97 H 135/79 11/21/18 04:13 93 H 94 11/21/18 04:08 93 H 94 11/21/18 04:06 93 H 94 11/21/18 04:03 94 H 94 11/21/18 04:01 94 H 94 11/21/18 03:58 92 H 95 11/21/18 03:55 92 H 94 11/21/18 03:53 94 H 94 0714 03:50 94 H 94 07/14/ 03:48 95 H 94 0714 03:44 97 H 94 11/21/18 03:43 98 H 94 07 03:38 97 H 94 14 03:33 98 H 94 14 03:28 97 H 95 11/21/18 03:27 96 H 94 11/21/18 03:23 97 H 94 11/21/18 03:22 97 H 94 11/21/18 03:18 98 H 95 14 03:15 37.3 C 99 H 18 135/75 94 11/21/18 03:13 99 H 95 11/21/18 03:10 98 H 94 11/21/18 03:08 98 H 95 11/21/18 03:03 104 H 95 11/21/18 03:02 100 H 94 11/21/18 02:57 100 H 94 11/21/18 02:52 99 H 92 11/21/18 02:47 100 H 94 11/21/18 02:46 98 H 94 11/21/18 02:42 99 H 94 11/21/18 02:37 100 H 94 14 02:32 102 H 94 11/21/18 02:29 101 H 94 11/21/18 02:27 102 H 94 11/21/18 02:24 105 H 94 11/21/18 02:22 104 H 95 11/21/18 02:18 104 H 94 11/21/18 02:17 99 H 95 11/21/18 02:15 100 H 153/74 H 11/21/18 02:12 101 H 95 14 02:08 100 H 94 11/21/18 02:07 101 H 95 11/21/18 02:02 106 H 94 11/21/18 02:00 100 H 94 11/21/18 01:57 99 H 95 11/21/18 01:53 105 H 94 11/21/18 01:52 99 H 94 11/21/18 01:47 102 H 94 11/21/18 01:42 104 H 95 11/21/18 01:41 101 H 94 11/21/18 01:37 101 H 95 11/21/18 01:36 100 H 94 11/21/18 01:32 106 H 95 11/21/18 01:27 97 H 95 11/21/18 01:22 37.4 C 107 H 18 147/74 H 95 11/21/18 01:17 106 H 96 11/21/18 01:12 101 H 96 11/21/18 01:10 100 H 94 11/21/18 01:07 98 H 96 11/21/18 01:02 101 H 96 11/21/18 00:57 96 H 95 11/21/18 00:56 98 H 94 11/21/18 00:52 102 H 95 11/21/18 00:47 96 H 96 11/21/18 00:42 110 H 97 11/21/18 00:37 105 H 96 11/21/18 00:32 104 H 95 11/21/18 00:27 107 H 96 11/21/18 00:23 120 H 94 11/21/18 00:22 110 H 98 11/21/18 00:17 104 H 136/63 96 11/21/18 00:12 107 H 97
--- NOTE | 2018-11-21 13:04 | Pharmacy Report ---
Pharmacy Glycemic Short Note 2 - Date of Service November 21, 2018 - Glycemic Short BSG Results (Last 24 hours): 11/20/18 11/20/18 11/20/18 13:58 13:59 14:19 POC Glucose 65 L* 64 L* 74 11/20/18 11/20/18 11/20/18 15:56 17:02 17:59 POC Glucose 91 104 H 101 H 11/20/18 11/20/18 11/20/18 18:58 20:02 21:00 POC Glucose 106 H 104 H 95 11/20/18 11/20/18 11/21/18 22:01 23:01 00:06 POC Glucose 90 83 89 11/21/18 11/21/18 11/21/18 01:06 02:03 03:05 POC Glucose 100 H 108 H 92 11/21/18 11/21/18 11/21/18 03:52 05:05 06:07 POC Glucose 110 H 101 H 103 H 11/21/18 11/21/18 11/21/18 07:02 07:58 09:02 POC Glucose 88 94 101 H 11/21/18 11/21/18 11/21/18 10:04 11:04 12:01 POC Glucose 97 101 H 108 H ASSESSMENT: * BSGs mostly within 90-105 goal range while on insulin gtt. PLAN FOR INPATIENT GLYCEMIC CONTROL: * Continue insulin gtt in place of insulin pump, no indications for changing care plan at this time.
--- NOTE | 2018-11-21 15:29 | Labor Progress Brief Note ---
Date of Service November 21, 2018 Pt has pushed for 2 hrs w/o change in station VE; 10/100/0 station + meconium suspected macrosomia from DM pt does not wish to push any longer and is demanding a c/sec discussed risk of c/sec including but not limited to infection, and other associated complications consent obtained Results & Data Vital Signs (Past 12 Hours) Vital Signs Temp Pulse Resp BP Pulse Ox 11/21/18 15:23 98 H 97 11/21/18 15:18 94 H 98 11/21/18 15:13 104 H 99 11/21/18 15:12 95 H 167/75 H 11/21/18 15:08 93 H 97 11/21/18 15:03 92 H 94 11/21/18 15:02 112 H 89 L 11/21/18 15:00 24 11/21/18 14:58 96 H 135/66 95 11/21/18 14:56 118 H 86 L 11/21/18 14:55 37.3 C 24 11/21/18 14:53 96 H 96 11/21/18 14:48 96 H 97 11/21/18 14:43 94 H 97 11/21/18 14:41 94 H 136/68 11/21/18 14:39 106 H 85 L 11/21/18 14:38 92 H 95 11/21/18 14:33 93 H 96 11/21/18 14:30 18 11/21/18 14:28 97 H 96 11/21/18 14:26 118 H 164/74 H 11/21/18 14:23 96 H 97 11/21/18 14:18 107 H 97 11/21/18 14:13 115 H 95 11/21/18 14:11 95 H 146/85 H 11/21/18 14:08 106 H 96 11/21/18 14:03 95 H 96 11/21/18 14:00 18 11/21/18 13:58 98 H 95 11/21/18 13:53 96 H 95 11/21/18 13:48 97 H 96 11/21/18 13:43 95 H 97 11/21/18 13:41 97 H 142/77 H 11/21/18 13:38 96 H 97 11/21/18 13:37 108 H 86 L 11/21/18 13:33 93 H 97 11/21/18 13:30 20 11/21/18 13:28 95 H 95 11/21/18 13:23 95 H 98 11/21/18 13:18 101 H 97 11/21/18 13:15 102 H 135/73 11/21/18 13:13 116 H 99 11/21/18 13:08 36.4 C L 101 H 18 98 11/21/18 13:03 97 H 97 11/21/18 12:58 98 H 98 11/21/18 12:53 98 H 95 11/21/18 12:48 97 H 95 11/21/18 12:43 106 H 96 11/21/18 12:38 97 H 98 11/21/18 12:33 101 H 98 11/21/18 12:30 18 11/21/18 12:28 97 H 96 11/21/18 12:23 99 H 98 11/21/18 12:18 106 H 97 11/21/18 12:15 100 H 132/67 11/21/18 12:13 100 H 97 11/21/18 12:08 105 H 94 11/21/18 12:03 102 H 96 11/21/18 12:00 18 11/21/18 11:58 100 H 98 11/21/18 11:53 99 H 99 11/21/18 11:48 110 H 98 11/21/18 11:43 104 H 98 11/21/18 11:38 105 H 98 11/21/18 11:33 103 H 98 11/21/18 11:30 20 11/21/18 11:28 105 H 99 11/21/18 11:23 98 H 96 11/21/18 11:18 103 H 98 11/21/18 11:17 99 H 124/62 11/21/18 11:13 98 H 97 11/21/18 11:08 103 H 97 11/21/18 11:03 106 H 98 11/21/18 11:00 37.2 C 18 11/21/18 10:58 97 H 94 11/21/18 10:53 97 H 94 11/21/18 10:48 98 H 94 11/21/18 10:43 96 H 94 11/21/18 10:38 94 H 95 11/21/18 10:33 95 H 95 11/21/18 10:30 18 11/21/18 10:28 94 H 95 11/21/18 10:23 97 H 94 11/21/18 10:18 95 H 95 11/21/18 10:15 96 H 134/68 11/21/18 10:13 95 H 96 11/21/18 10:08 109 H 97 11/21/18 10:03 97 H 98 11/21/18 09:58 97 H 96 11/21/18 09:53 93 H 96 11/21/18 09:48 97 H 97 11/21/18 09:43 94 H 98 11/21/18 09:38 94 H 98 11/21/18 09:33 96 H 98 11/21/18 09:30 18 11/21/18 09:28 100 H 99 11/21/18 09:23 98 H 100 11/21/18 09:18 98 H 99 11/21/18 09:15 93 H 127/63 11/21/18 09:13 96 H 99 11/21/18 09:08 100 H 98 11/21/18 09:03 97 H 98 11/21/18 09:00 37.4 C 18 11/21/18 08:58 100 H 98 11/21/18 08:53 98 H 98 11/21/18 08:48 109 H 97 11/21/18 08:43 105 H 99 11/21/18 08:38 92 H 96 11/21/18 08:33 90 96 11/21/18 08:30 20 11/21/18 08:28 90 95 11/21/18 08:23 93 H 96 11/21/18 08:18 91 H 96 11/21/18 08:16 93 H 132/63 11/21/18 08:13 90 96 11/21/18 08:08 93 H 98 11/21/18 08:03 98 H 98 11/21/18 08:00 20 11/21/18 07:58 97 H 98 11/21/18 07:53 114 H 96 11/21/18 07:48 96 H 96 11/21/18 07:43 90 96 11/21/18 07:38 92 H 95 11/21/18 07:33 92 H 96 11/21/18 07:30 20 11/21/18 07:28 93 H 96 11/21/18 07:23 93 H 97 11/21/18 07:18 93 H 95 11/21/18 07:15 90 137/88 11/21/18 07:13 95 H 95 11/21/18 07:08 103 H 98 11/21/18 07:03 97 H 95 11/21/18 07:00 37.4 C 16 11/21/18 06:59 99 H 93 11/21/18 06:58 96 H 93 11/21/18 06:53 98 H 94 11/21/18 06:48 105 H 89 L 11/21/18 06:43 93 H 86 L 11/21/18 06:39 91 H 94 11/21/18 06:38 91 H 94 11/21/18 06:34 99 H 94 11/21/18 06:33 93 H 95 11/21/18 06:29 93 H 94 11/21/18 06:28 91 H 95 11/21/18 06:24 91 H 94 11/21/18 06:23 93 H 95 11/21/18 06:19 94 H 94 11/21/18 06:18 91 H 94 11/21/18 06:15 37.1 C 100 H 18 145/85 H 11/21/18 06:13 93 H 98 11/21/18 06:08 95 H 94 11/21/18 06:03 92 H 94 11/21/18 06:01 92 H 94 11/21/18 05:58 92 H 95 11/21/18 05:55 92 H 94 11/21/18 05:53 94 H 94 11/21/18 05:50 92 H 94 11/21/18 05:48 95 H 94 11/21/18 05:45 94 H 94 11/21/18 05:43 93 H 95 11/21/18 05:39 96 H 94 11/21/18 05:38 96 H 95 11/21/18 05:33 99 H 96 11/21/18 05:29 37.1 C 18 11/21/18 05:28 104 H 92 11/21/18 05:23 110 H 97 11/21/18 05:18 100 H 97 11/21/18 05:13 107 H 97 11/21/18 05:08 108 H 94 11/21/18 05:03 90 96 11/21/18 04:58 92 H 96 11/21/18 04:53 92 H 96 11/21/18 04:50 103 H 94 11/21/18 04:48 94 H 97 11/21/18 04:43 95 H 96 11/21/18 04:38 95 H 98 11/21/18 04:36 98 H 94 11/21/18 04:33 92 H 96 11/21/18 04:28 94 H 96 11/21/18 04:27 37.2 C 18 11/21/18 04:23 92 H 95 11/21/18 04:18 93 H 94 11/21/18 04:15 97 H 135/79 11/21/18 04:13 93 H 94 11/21/18 04:08 93 H 94 11/21/18 04:06 93 H 94 11/21/18 04:03 94 H 94 11/21/18 04:01 94 H 94 11/21/18 03:58 92 H 95 11/21/18 03:55 92 H 94 11/21/18 03:53 94 H 94 11/21/18 03:50 94 H 94 11/21/18 03:48 95 H 94 19 03:44 97 H 94 11/21/18 03:43 98 H 94 11/21/18 03:38 97 H 94 11/21/18 03:33 98 H 94 11/21/18 03:28 97 H 95 11/21/18 03:27 96 H 94
[2018-11-21] MEDS ORDERED: LIDOCAINE/EPINEPHRINE 2% 1:200,000 20 ML SDV ONE ×2 (15:59→16:20)
[2018-11-21] MEDS ORDERED: CITRIC ACID/SODIUM CITRATE 15 ML UDC PO ONE (16:00)
[2018-11-21] MEDS ORDERED: CEFAZOLIN 3000MG 65 ML IV ONE (16:00)
[2018-11-21] MEDS ORDERED: fentaNYL citrate 100 MCG/2 ML VIAL ONE (16:11)
[2018-11-21] MEDS ORDERED: OXYTOCIN 10 UNITS/ML VIAL ONE ×3 (16:21→16:46)
[2018-11-21] MEDS ORDERED: MoRPHine SULFATE PF 1 MG/ML 10 ML AMP/VIAL ONE (16:21)
[2018-11-21] MEDS ORDERED: NALOXONE HCL 1 MG in SODIUM CHLORIDE 0.9% 1000ML 1,000 ML IV PRN (16:47)
[2018-11-21] MEDS ORDERED: LACTATED RINGER'S 500 ML IV PRN (16:47)
[2018-11-21] MEDS ORDERED: HYDROmorphone INJ 0.5 MG/0.5 ML SYR IV PRN (16:47)
[2018-11-21] MEDS ORDERED: DiphenhydrAMINE HCL 50 MG/ML VIAL IV PRN ×2 (16:47→17:45)
[2018-11-21] MEDS ORDERED: MoRPHine SULFATE PF 1 MG/ML 10 ML AMP/VIAL EPI ONE (16:47)
[2018-11-21] MEDS ORDERED: NALBUPHINE HCL INJ 10 MG/ML AMP IV PRN (16:47)
[2018-11-21] MEDS ORDERED: NALOXONE HCL 0.4 MG/1 ML VIAL/CARP IV PRN (16:47)
[2018-11-21] MEDS ORDERED: ONDANSETRON INJ 2 MG/ML 2 ML VIAL IV PRN ×2 (16:47→17:45)
[2018-11-21] MEDS ORDERED: NALOXONE HCL 0.08 MG in SYRINGE 1.8 ML IV PRN (16:47)
[2018-11-21] MEDS ORDERED: ePHEDrine sulfate 50 MG/ML AMP IV PRN (16:47)
[2018-11-21] MEDS ORDERED: SODIUM CHLORIDE 0.9% 1000ML 1,000 ML IV SCH (17:00)
[2018-11-21] MEDS ORDERED: NO NARCOTICS OR SEDATIVES SCH (17:00)
[2018-11-21] MEDS ORDERED: DC INTRASPINAL MORPHINE SCH (17:00)
[2018-11-21] MEDS ORDERED: miSOPROStol 200 MCG TAB ONE (17:33)
[2018-11-21] MEDS ORDERED: MAGNESIUM HYDROXIDE SUSP 30 ML UDC PO PRN (17:45)
[2018-11-21] MEDS ORDERED: SUPERCREAM 0.870% 15 GM JAR EXT PRN (17:45)
[2018-11-21] MEDS ORDERED: SENNA 8.6 MG TAB PO PRN (17:45)
[2018-11-21] MEDS ORDERED: DIPHTHERIA/TETANUS/PERTUSSIS 0.5 ML SYR/VIAL IM ONE (17:45)
[2018-11-21] MEDS ORDERED: HYDROCORTISONE ACETATE 25 MG SUPP PR PRN (17:45)
[2018-11-21] MEDS ORDERED: BENZOCAINE 20% AER SPR 82.5 GM CAN EXT PRN (17:45)
[2018-11-21 18:01] LABS: Base Excess Cord Arterial Bld -2.8 mEq/L (-9-1.8); CO2 Cord Arterial Blood 65 mmHg (39.1-73.5); HCO3 Cord Arterial Blood 27 mmol/L (19.7-28.5); pH Cord Arterial Blood 7.23 (7.1-7.38)
--- NOTE | 2018-11-21 18:04 | Anesthesiology Progress Note ---
Date of Service November 21, 2018 Anesthesia Post Procedure Vital Signs Vital Signs: Temp Pulse Resp BP Pulse Ox 11/21/18 18:02 92 H 115/63 11/21/18 18:01 87 96 11/21/18 17:56 87 93 11/21/18 17:52 88 107/58 L 11/21/18 17:51 90 96 11/21/18 17:46 88 94 11/21/18 17:42 88 93/54 L 11/21/18 17:41 92 H 93 11/21/18 16:11 101 H 152/80 H 11/21/18 16:08 100 H 97 11/21/18 16:05 107 H 83 L 11/21/18 16:03 99 H 95 11/21/18 16:00 18 11/21/18 15:58 109 H 97 11/21/18 15:56 98 H 146/84 H 11/21/18 15:53 98 H 96 11/21/18 15:48 97 H 97 11/21/18 15:43 97 H 96 11/21/18 15:40 96 H 148/78 H 11/21/18 15:38 95 H 96 11/21/18 15:33 105 H 96 11/21/18 15:30 24 11/21/18 15:28 93 H 96 11/21/18 15:26 93 H 136/71 11/21/18 15:23 98 H 97 11/21/18 15:18 94 H 98 11/21/18 15:13 104 H 99 11/21/18 15:12 95 H 167/75 H 11/21/18 15:08 93 H 97 11/21/18 15:03 92 H 94 11/21/18 15:02 112 H 89 L 11/21/18 15:00 24 11/21/18 14:58 96 H 135/66 95 11/21/18 14:56 118 H 86 L 11/21/18 14:55 37.3 C 24 11/21/18 14:53 96 H 96 11/21/18 14:48 96 H 97 11/21/18 14:43 94 H 97 11/21/18 14:41 94 H 136/68 11/21/18 14:39 106 H 85 L 11/21/18 14:38 92 H 95 11/21/18 14:33 93 H 96 11/21/18 14:30 18 11/21/18 14:28 97 H 96 11/21/18 14:26 118 H 164/74 H 11/21/18 14:23 96 H 97 11/21/18 14:18 107 H 97 11/21/18 14:13 115 H 95 11/21/18 14:11 95 H 146/85 H 11/21/18 14:08 106 H 96 11/21/18 14:03 95 H 96 11/21/18 14:00 18 11/21/18 13:58 98 H 95 11/21/18 13:53 96 H 95 11/21/18 13:48 97 H 96 11/21/18 13:43 95 H 97 11/21/18 13:41 97 H 142/77 H 11/21/18 13:38 96 H 97 11/21/18 13:37 108 H 86 L 11/21/18 13:33 93 H 97 11/21/18 13:30 20 11/21/18 13:28 95 H 95 11/21/18 13:23 95 H 98 11/21/18 13:18 101 H 97 11/21/18 13:15 102 H 135/73 11/21/18 13:13 116 H 99 11/21/18 13:08 36.4 C L 101 H 18 98 11/21/18 13:03 97 H 97 11/21/18 12:58 98 H 98 11/21/18 12:53 98 H 95 11/21/18 12:48 97 H 95 11/21/18 12:43 106 H 96 11/21/18 12:38 97 H 98 11/21/18 12:33 101 H 98 11/21/18 12:30 18 11/21/18 12:28 97 H 96 11/21/18 12:23 99 H 98 11/21/18 12:18 106 H 97 11/21/18 12:15 100 H 132/67 11/21/18 12:13 100 H 97 11/21/18 12:08 105 H 94 11/21/18 12:03 102 H 96 11/21/18 12:00 18 11/21/18 11:58 100 H 98 11/21/18 11:53 99 H 99 11/21/18 11:48 110 H 98 11/21/18 11:43 104 H 98 14 11:38 105 H 98 14/ 11:33 103 H 98 11/21/18 11:30 20 11/21/18 11:28 105 H 99 11/21/18 11:23 98 H 96 11/21/18 11:18 103 H 98 11/21/18 11:17 99 H 124/62 11/21/18 11:13 98 H 97 11/21/18 11:08 103 H 97 11/21/18 11:03 106 H 98 11/21/18 11:00 37.2 C 18 11/21/18 10:58 97 H 94 11/21/18 10:53 97 H 94 11/21/18 10:48 98 H 94 11/21/18 10:43 96 H 94 11/21/18 10:38 94 H 95 11/21/18 10:33 95 H 95 11/21/18 10:30 18 11/21/18 10:28 94 H 95 11/21/18 10:23 97 H 94 11/21/18 10:18 95 H 95 11/21/18 10:15 96 H 134/68 11/21/18 10:13 95 H 96 11/21/18 10:08 109 H 97 11/21/18 10:03 97 H 98 11/21/18 09:58 97 H 96 11/21/18 09:53 93 H 96 11/21/18 09:48 97 H 97 11/21/18 09:43 94 H 98 11/21/18 09:38 94 H 98 11/21/18 09:33 96 H 98 11/21/18 09:30 18 11/21/18 09:28 100 H 99 11/21/18 09:23 98 H 100 11/21/18 09:18 98 H 99 11/21/18 09:15 93 H 127/63 11/21/18 09:13 96 H 99 11/21/18 09:08 100 H 98 11/21/18 09:03 97 H 98 11/21/18 09:00 37.4 C 18 11/21/18 08:58 100 H 98 11/21/18 08:53 98 H 98 11/21/18 08:48 109 H 97 11/21/18 08:43 105 H 99 11/21/18 08:38 92 H 96 07/14/19 08:33 90 96 11/21/18 08:30 20 11/21/18 08:28 90 95 11/21/18 08:23 93 H 96 11/21/18 08:18 91 H 96 11/21/18 08:16 93 H 132/63 11/21/18 08:13 90 96 11/21/18 08:08 93 H 98 11/21/18 08:03 98 H 98 11/21/18 08:00 20 11/21/18 07:58 97 H 98 11/21/18 07:53 114 H 96 11/21/18 07:48 96 H 96 11/21/18 07:43 90 96 11/21/18 07:38 92 H 95 11/21/18 07:33 92 H 96 11/21/18 07:30 20 11/21/18 07:28 93 H 96 11/21/18 07:23 93 H 97 11/21/18 07:18 93 H 95 11/21/18 07:15 90 137/88 11/21/18 07:13 95 H 95 11/21/18 07:08 103 H 98 11/21/18 07:03 97 H 95 11/21/18 07:00 37.4 C 16 11/21/18 06:59 99 H 93 11/21/18 06:58 96 H 93 11/21/18 06:53 98 H 94 11/21/18 06:48 105 H 89 L 11/21/18 06:43 93 H 86 L 11/21/18 06:39 91 H 94 11/21/18 06:38 91 H 94 11/21/18 06:34 99 H 94 11/21/18 06:33 93 H 95 11/21/18 06:29 93 H 94 11/21/18 06:28 91 H 95 11/21/18 06:24 91 H 94 11/21/18 06:23 93 H 95 11/21/18 06:19 94 H 94 11/21/18 06:18 91 H 94 11/21/18 06:15 37.1 C 100 H 18 145/85 H 11/21/18 06:13 93 H 98 11/21/18 06:08 95 H 94 11/21/18 06:03 92 H 94 11/21/18 06:01 92 H 94 11/21/18 05:58 92 H 95 11/21/18 05:55 92 H 94 11/21/18 05:53 94 H 94 11/21/18 05:50 92 H 94 11/21/18 05:48 95 H 94 11/21/18 05:45 94 H 94 11/21/18 05:43 93 H 95 11/21/18 05:39 96 H 94 11/21/18 05:38 96 H 95 11/21/18 05:33 99 H 96 11/21/18 05:29 37.1 C 18 11/21/18 05:28 104 H 92 11/21/18 05:23 110 H 97 11/21/18 05:18 100 H 97 11/21/18 05:13 107 H 97 11/21/18 05:08 108 H 94 11/21/18 05:03 90 96 11/21/18 04:58 92 H 96 11/21/18 04:53 92 H 96 11/21/18 04:50 103 H 94 11/21/18 04:48 94 H 97 11/21/18 04:43 95 H 96 11/21/18 04:38 95 H 98 11/21/18 04:36 98 H 94 11/21/18 04:33 92 H 96 11/21/18 04:28 94 H 96 11/21/18 04:27 37.2 C 18 11/21/18 04:23 92 H 95 11/21/18 04:18 93 H 94 11/21/18 04:15 97 H 135/79 11/21/18 04:13 93 H 94 11/21/18 04:08 93 H 94 11/21/18 04:06 93 H 94 11/21/18 04:03 94 H 94 11/21/18 04:01 94 H 94 11/21/18 03:58 92 H 95 11/21/18 03:55 92 H 94 11/21/18 03:53 94 H 94 11/21/18 03:50 94 H 94 11/21/18 03:48 95 H 94 11/21/18 03:44 97 H 94 11/21/18 03:43 98 H 94 11/21/18 03:38 97 H 94 11/21/18 03:33 98 H 94 11/21/18 03:28 97 H 95 11/21/18 03:27 96 H 94 07 03:23 97 H 94 11/21/18 03:22 97 H 94 11/21/18 03:18 98 H 95 11/21/18 03:15 37.3 C 99 H 18 135/75 94 11/21/18 03:13 99 H 95 07 03:10 98 H 94 11/21/18 03:08 98 H 95 11/21/18 03:03 104 H 95 11/21/18 03:02 100 H 94 11/21/18 02:57 100 H 94 11/21/18 02:52 99 H 92 11/21/18 02:47 100 H 94 11/21/18 02:46 98 H 94 11/21/18 02:42 99 H 94 11/21/18 02:37 100 H 94 11/21/18 02:32 102 H 94 11/21/18 02:29 101 H 94 11/21/18 02:27 102 H 94 11/21/18 02:24 105 H 94 11/21/18 02:22 104 H 95 11/21/18 02:18 104 H 94 11/21/18 02:17 99 H 95 11/21/18 02:15 100 H 153/74 H 11/21/18 02:12 101 H 95 11/21/18 02:08 100 H 94 11/21/18 02:07 101 H 95 11/21/18 02:02 106 H 94 11/21/18 02:00 100 H 94 11/21/18 01:57 99 H 95 11/21/18 01:53 105 H 94 11/21/18 01:52 99 H 94 11/21/18 01:47 102 H 94 11/21/18 01:42 104 H 95 11/21/18 01:41 101 H 94 11/21/18 01:37 101 H 95 11/21/18 01:36 100 H 94 11/21/18 01:32 106 H 95 11/21/18 01:27 97 H 95 11/21/18 01:22 37.4 C 107 H 18 147/74 H 95 11/21/18 01:17 106 H 96 11/21/18 01:12 101 H 96 11/21/18 01:10 100 H 94 11/21/18 01:07 98 H 96 11/21/18 01:02 101 H 96 11/21/18 00:57 96 H 95 11/21/18 00:56 98 H 94 11/21/18 00:52 102 H 95 11/21/18 00:47 96 H 96 11/21/18 00:42 110 H 97 11/21/18 00:37 105 H 96 11/21/18 00:32 104 H 95 11/21/18 00:27 107 H 96 11/21/18 00:23 120 H 94 11/21/18 00:22 110 H 98 11/21/18 00:17 104 H 136/63 96 11/21/18 00:12 107 H 97 11/21/18 00:07 101 H 95 11/21/18 00:02 101 H 97 11/20/18 23:57 96 H 98 11/20/18 23:52 103 H 97 11/20/18 23:47 109 H 97 11/20/18 23:42 105 H 98 11/20/18 23:37 107 H 98 11/20/18 23:32 112 H 98 11/20/18 23:27 103 H 96 11/20/18 23:22 106 H 95 11/20/18 23:17 108 H 97 11/20/18 23:15 37.3 C 16 11/20/18 23:14 102 H 138/68 11/20/18 23:12 101 H 96 11/20/18 23:07 108 H 96 11/20/18 23:02 108 H 98 11/20/18 22:58 106 H 130/66 11/20/18 22:57 111 H 97 11/20/18 22:52 105 H 96 11/20/18 22:47 109 H 95 11/20/18 22:44 104 H 130/70 11/20/18 22:42 104 H 95 11/20/18 22:37 103 H 95 11/20/18 22:32 104 H 95 11/20/18 22:30 103 H 136/66 11/20/18 22:27 99 H 95 11/20/18 22:22 99 H 95 11/20/18 22:17 101 H 96 11/20/18 22:13 96 H 136/67 11/20/18 22:12 102 H 96 11/20/18 22:07 99 H 97 11/20/18 22:02 102 H 99 11/20/18 21:59 98 H 133/68 11/20/18 21:57 99 H 98 11/20/18 21:52 100 H 99 11/20/18 21:47 110 H 99 11/20/18 21:43 96 H 136/66 11/20/18 21:42 100 H 99 11/20/18 21:37 98 H 99 11/20/18 21:32 104 H 98 11/20/18 21:30 102 H 135/67 11/20/18 21:27 99 H 97 11/20/18 21:22 97 H 98 11/20/18 21:17 93 H 96 11/20/18 21:15 100 H 160/89 H 11/20/18 21:12 100 H 99 11/20/18 21:07 104 H 99 11/20/18 21:02 104 H 97 11/20/18 20:59 99 H 164/83 H 11/20/18 20:57 102 H 98 11/20/18 20:52 103 H 97 11/20/18 20:47 104 H 98 11/20/18 20:45 96 H 156/95 H 11/20/18 20:42 92 H 97 11/20/18 20:37 91 H 96 11/20/18 20:32 98 H 97 11/20/18 20:29 91 H 137/68 11/20/18 20:27 100 H 98 11/20/18 20:22 99 H 96 11/20/18 20:20 94 H 155/81 H 11/20/18 20:17 97 H 96 11/20/18 20:12 91 H 99 11/20/18 20:07 95 H 98 11/20/18 20:02 90 99 11/20/18 19:59 36.9 C 96 H 18 139/82 11/20/18 19:57 95 H 98 11/20/18 19:52 91 H 98 11/20/18 19:47 91 H 100 11/20/18 19:43 93 H 145/95 H 11/20/18 19:42 89 99 11/20/18 19:37 90 100 11/20/18 19:32 90 100 11/20/18 19:29 91 H 145/95 H 11/20/18 19:28 95 H 93 11/20/18 19:27 98 H 100 11/20/18 19:22 99 H 97 11/20/18 19:21 88 90 11/20/18 19:17 92 H 95 11/20/18 19:16 97 H 94 11/20/18 19:12 102 H 97 11/20/18 19:11 88 93 11/20/18 19:07 99 H 88 L 11/20/18 19:06 93 H 92 11/20/18 19:02 92 H 100 11/20/18 18:59 20 11/20/18 18:57 86 97 11/20/18 18:52 85 99 11/20/18 18:47 85 98 11/20/18 18:44 89 141/72 H 11/20/18 18:42 90 100 11/20/18 18:37 92 H 100 11/20/18 18:32 96 H 100 11/20/18 18:28 100 H 18 139/74 11/20/18 18:27 91 H 100 11/20/18 18:22 97 H 100 11/20/18 18:17 85 100 11/20/18 18:13 95 H 138/71 11/20/18 18:12 89 100 11/20/18 18:07 85 100 Pain Intensity Lower Abdomen: Pain Intensity: 2 Transfer of Care Handoff Completed per policy Notes Mental Status: alert / awake / arousable Patient Amnestic to Procedure: Yes Nausea / Vomiting: adequately controlled Pain: adequately controlled Airway Patency, RR, SpO2: stable & adequate BP & HR: stable & adequate Hydration State: stable & adequate Neuraxial Anesthesia: was administered and sensory block is resolving Anesthetic Complications: no major complications apparent and Pt Satisfied with anesthetic care
[2018-11-21 18:06] LABS: Base Excess Cord Venous Blood -1.6 mEq/L (-7.7-1.9); Cord Venous Blood HCO3 26 mmol/L (18.4-26.8); Cord Venous Blood PCO2 55 mmHg (30.4-57.2); Cord Venous Blood PO2 21 mmHg (14.1-43.3); Cord Venous Blood pH 7.29 (7.20-7.44)
[2018-11-21 18:07] LABS: O2 Saturation Cord Venous Bld < 60.0 % (<68); Oxygen Sat Cord Arterial Blood < 60.0 % (<60)
[2018-11-21] MEDS ORDERED: MEPERIDINE HCL 25 MG/ML CARP ONE (18:49)
[2018-11-21] MEDS ORDERED: MEPERIDINE HCL 25 MG/ML CARP IV STA (18:53)
[2018-11-21] MEDS: OXYTOCIN 20 UNITS in LACTATED RINGER'S 1,000 ML IV SCH (20:15)
[2018-11-21] MEDS: KETOROLAC 30 MG/ML VIAL IV PRN (20:32)
[2018-11-21] MEDS: SIMETHICONE 80 MG CHEW PO SCH (20:32)
[2018-11-21] MEDS: DOCUSATE SODIUM 100 MG CAP PO SCH (20:32)
[2018-11-22] MEDS: NovoLOG INSULIN PUMP SCH ×3 (04:00→22:15)
[2018-11-22] MEDS: OXYTOCIN 20 UNITS in LACTATED RINGER'S 1,000 ML IV SCH (04:40)
[2018-11-22] MEDS: KETOROLAC 30 MG/ML VIAL IV PRN (05:20)
[2018-11-22 06:56] LABS: Basophils # (auto) 0.01 K/uL (0-0.2); Basophils % (auto) 0.1 %; Eosinophils # (auto) 0.01 K/uL (0-0.5); Eosinophils % (auto) 0.1 %; Hematocrit (blood only) 31.1 % (37-47); Hemoglobin 10.3 g/dL (12.0-16.0); Immature Granulocytes # (auto) 0.03 K/uL (0.00-0.02); Immature Granulocytes % (auto) 0.3 %; Lymphocytes # (auto) 1.49 K/uL (1.2-3.4); Lymphocytes % (auto) 12.9 %; Mean Corpuscular Hgb Conc 33.1 g/dL (32-36); Mean Corpuscular Volume 71.5 fL (80-100); Mean Platelet Volume 9.5 fL (7.4-10.4); Monocytes # (auto) 0.87 K/uL (0.11-0.59); Monocytes % (auto) 7.6 %; Neutrophils # (auto) 9.11 K/uL (1.4-6.5); Platelet Count 132 K/uL (130-400); RDW Coefficient of Variation 16.5 % (11.5-14.5); RDW Standard Deviation 43.1 fL (36.4-46.3); Red Blood Count 4.35 M/uL (4.2-5.4); White Blood Count 11.52 K/uL (4.8-10.8)
--- NOTE | 2018-11-22 07:51 | Operative Report ---
DATE OF OPERATION: 11/21/2018 INDICATION FOR PROCEDURE: This is a 33-year-old female with pregestational diabetes who has been induced x4 days. The patient became fully dilated and pushed for 2 hours with no change in station. The patient refused to push any longer after 2 hours and underwent section. PREOPERATIVE DIAGNOSES: 1. Pregestational diabetic. 2. Failure to descend. 3. Cephalopelvic disproportion. 4. Maternal exhaustion. 5. Suspected microsomia. POSTOPERATIVE DIAGNOSES: 1. Pregestational diabetic. 2. Failure to descend. 3. Cephalopelvic disproportion. 4. Maternal exhaustion. 5. Suspected microsomia. PROCEDURE: Primary section. FINDINGS: Live infant in cephalic presentation. Weight and Apgars in the pediatric record. Uterus, adnexa and pelvis appeared grossly normal. COMPLICATIONS: None. ANESTHESIA: Epidural. PATHOLOGY: Placenta. INTRAVENOUS FLUIDS: 1300 mL. URINE OUTPUT: 400 mL. ESTIMATED BLOOD LOSS: 500 mL. DRAINS: Arreola catheter. DISPOSITION: Stable to recovery room. DESCRIPTION OF PROCEDURE: The patient was taken to the operating room where she was prepped and draped in normal sterile fashion. After time out was called, a Pfannenstiel incision was made and carried down to the fascia with a scalpel. Fascia was incised in the midline and extended laterally on both sides. The fascia was sharply dissected off the rectus abdominis muscle. Peritoneum was identified and entered sharply. An Mika retractor was placed in the abdomen for retraction. Vesicouterine peritoneum was sharply dissected off the lower segment of the uterus. A low transverse incision was made in the uterus and extended laterally on both sides. was delivered. There was no nuchal cord. Details of infant's weight and Apgars in the pediatric record. Cord was clamped and cut and handed over to the waiting pediatric team. Placenta was manually removed. Uterus was exteriorized and cleared of all clots and debris. Uterus was closed in 2 layers using Vicryl suture. There was good hemostasis at the end of the closure. A copious amount of irrigation was used to irrigate the abdomen. Uterus was returned into the abdominal cavity. Vesicouterine peritoneum was reapproximated using plain suture. The peritoneum was closed with plain suture. The fascia was closed with PDS suture. Skin was closed with plain suture and skin was closed with elena. VIKTOR dressing was applied to wound. All instruments are removed from the abdomen and accounted for x2 including sponges, needles and retractors. I attest to the content of the Intraoperative Record and any orders documented therein. Any exceptions are noted below. EVE
--- NOTE | 2018-11-22 09:26 | Anesthesiology Progress Note ---
Date of Service November 22, 2018 Anesthesia Post Procedure Vital Signs Vital Signs: Temp Pulse Pulse Resp BP BP Pulse Ox 11/22/18 07:29 20 98 11/22/18 06:05 16 95 11/22/18 05:00 18 97 11/22/18 04:00 36.7 C 94 H 18 151/94 H 96 11/22/18 03:00 16 95 11/22/18 02:00 18 94 11/22/18 01:09 16 95 11/22/18 00:00 36.7 C 114 H 18 157/97 H 96 11/21/18 23:00 18 96 11/21/18 22:00 16 95 11/21/18 21:00 18 95 11/21/18 20:15 37.4 C 106 H 18 160/91 H 96 11/21/18 20:00 120 H 89 L 11/21/18 19:56 110 H 100 11/21/18 19:51 110 H 98 11/21/18 19:46 108 H 100 11/21/18 19:42 121 H 18 165/92 H 11/21/18 19:41 116 H 96 11/21/18 19:36 119 H 98 11/21/18 19:32 111 H 151/70 H 11/21/18 19:31 113 H 98 11/21/18 19:28 113 H 178/81 H 11/21/18 19:26 121 H 99 11/21/18 19:22 113 H 172/93 H 11/21/18 19:21 112 H 97 11/21/18 19:16 116 H 99 11/21/18 19:12 37.0 C 18 11/21/18 19:11 116 H 99 11/21/18 19:06 110 H 96 11/21/18 19:03 102 H 130/75 11/21/18 19:01 103 H 98 11/21/18 18:56 109 H 100 11/21/18 18:52 125 H 108/68 11/21/18 18:51 117 H 95 11/21/18 18:46 113 H 93 11/21/18 18:44 108 H 104/65 11/21/18 18:42 37.0 C 20 11/21/18 18:41 103 H 94 11/21/18 18:36 102 H 118/57 L 93 11/21/18 18:32 20 0714/19 18:31 104 H 93 11/21/18 18:26 104 H 95 11/21/18 18:22 100 H 18 130/57 L 11/21/18 18:21 103 H 96 11/21/18 18:16 90 94 11/21/18 18:12 101 H 18 121/64 11/21/18 18:11 93 H 95 11/21/18 18:06 97 H 95 11/21/18 18:02 92 H 18 115/63 11/21/18 18:01 87 96 11/21/18 17:56 87 93 11/21/18 17:52 88 16 107/58 L 11/21/18 17:51 90 96 11/21/18 17:46 88 94 11/21/18 17:42 88 18 93/54 L 11/21/18 17:41 92 H 93 11/21/18 16:11 101 H 152/80 H 11/21/18 16:08 100 H 97 11/21/18 16:05 107 H 83 L 11/21/18 16:03 99 H 95 11/21/18 16:00 18 11/21/18 15:58 109 H 97 11/21/18 15:56 98 H 146/84 H 11/21/18 15:53 98 H 96 11/21/18 15:48 97 H 97 11/21/18 15:43 97 H 96 11/21/18 15:40 96 H 148/78 H 11/21/18 15:38 95 H 96 11/21/18 15:33 105 H 96 11/21/18 15:30 24 11/21/18 15:28 93 H 96 11/21/18 15:26 93 H 136/71 11/21/18 15:23 98 H 97 11/21/18 15:18 94 H 98 11/21/18 15:13 104 H 99 11/21/18 15:12 95 H 167/75 H 11/21/18 15:08 93 H 97 11/21/18 15:03 92 H 94 11/21/18 15:02 112 H 89 L 11/21/18 15:00 24 11/21/18 14:58 96 H 135/66 95 11/21/18 14:56 118 H 86 L 11/21/18 14:55 37.3 C 24 11/21/18 14:53 96 H 96 11/21/18 14:48 96 H 97 11/21/18 14:43 94 H 97 11/21/18 14:41 94 H 136/68 11/21/18 14:39 106 H 85 L 11/21/18 14:38 92 H 95 11/21/18 14:33 93 H 96 11/21/18 14:30 18 11/21/18 14:28 97 H 96 11/21/18 14:26 118 H 164/74 H 11/21/18 14:23 96 H 97 11/21/18 14:18 107 H 97 11/21/18 14:13 115 H 95 11/21/18 14:11 95 H 146/85 H 11/21/18 14:08 106 H 96 11/21/18 14:03 95 H 96 11/21/18 14:00 18 11/21/18 13:58 98 H 95 11/21/18 13:53 96 H 95 11/21/18 13:48 97 H 96 11/21/18 13:43 95 H 97 11/21/18 13:41 97 H 142/77 H 11/21/18 13:38 96 H 97 11/21/18 13:37 108 H 86 L 11/21/18 13:33 93 H 97 11/21/18 13:30 20 11/21/18 13:28 95 H 95 11/21/18 13:23 95 H 98 11/21/18 13:18 101 H 97 11/21/18 13:15 102 H 135/73 11/21/18 13:13 116 H 99 11/21/18 13:08 36.4 C L 101 H 18 98 11/21/18 13:03 97 H 97 11/21/18 12:58 98 H 98 11/21/18 12:53 98 H 95 11/21/18 12:48 97 H 95 11/21/18 12:43 106 H 96 11/21/18 12:38 97 H 98 11/21/18 12:33 101 H 98 11/21/18 12:30 18 11/21/18 12:28 97 H 96 11/21/18 12:23 99 H 98 11/21/18 12:18 106 H 97 11/21/18 12:15 100 H 132/67 11/21/18 12:13 100 H 97 11/21/18 12:08 105 H 94 11/21/18 12:03 102 H 96 11/21/18 12:00 18 11/21/18 11:58 100 H 98 11/21/18 11:53 99 H 99 11/21/18 11:48 110 H 98 11/21/18 11:43 104 H 98 11/21/18 11:38 105 H 98 11/21/18 11:33 103 H 98 11/21/18 11:30 20 11/21/18 11:28 105 H 99 11/21/18 11:23 98 H 96 11/21/18 11:18 103 H 98 11/21/18 11:17 99 H 124/62 11/21/18 11:13 98 H 97 11/21/18 11:08 103 H 97 11/21/18 11:03 106 H 98 11/21/18 11:00 37.2 C 18 11/21/18 10:58 97 H 94 11/21/18 10:53 97 H 94 11/21/18 10:48 98 H 94 11/21/18 10:43 96 H 94 11/21/18 10:38 94 H 95 11/21/18 10:33 95 H 95 11/21/18 10:30 18 11/21/18 10:28 94 H 95 11/21/18 10:23 97 H 94 11/21/18 10:18 95 H 95 11/21/18 10:15 96 H 134/68 11/21/18 10:13 95 H 96 11/21/18 10:08 109 H 97 11/21/18 10:03 97 H 98 11/21/18 09:58 97 H 96 11/21/18 09:53 93 H 96 11/21/18 09:48 97 H 97 11/21/18 09:43 94 H 98 11/21/18 09:38 94 H 98 11/21/18 09:33 96 H 98 11/21/18 09:30 18 11/21/18 09:28 100 H 99 Pain Intensity Lower Abdomen: Pain Intensity: 2 Transfer of Care Handoff Completed per policy Notes Mental Status: alert / awake / arousable Nausea / Vomiting: adequately controlled Pain: adequately controlled Airway Patency, RR, SpO2: stable & adequate BP & HR: stable & adequate Hydration State: stable & adequate Neuraxial Anesthesia: was administered and sensory block resolved Anesthetic Complications: no major complications apparent
--- NOTE | 2018-11-22 09:56 | Surgery Progress Note ---
Date of Service November 22, 2018 Subjective doing fine Physical Exam Constitutional: WD/WN, vitals as above comfortable abdomen soft and non- tender no edema neg Marko's Will start Labetalol 100 mg PO bid for elevated BP no signs of PIH/probable chronic hypertension Results & Data Vital Signs (Past 12 Hours) Vital Signs Temp Pulse Resp BP Pulse Ox 11/22/18 07:29 20 98 11/22/18 06:05 16 95 11/22/18 05:00 18 97 11/22/18 04:00 36.7 C 94 H 18 151/94 H 96 11/22/18 03:00 16 95 11/22/18 02:00 18 94 11/22/18 01:09 16 95 11/22/18 00:00 36.7 C 114 H 18 157/97 H 96 11/21/18 23:00 18 96 11/21/18 22:00 16 95 Laboratory Results Laboratory Results - last 72 hr 11/19/18 11/19/18 11/19/18 11:42 13:34 15:33 WBC RBC Hgb Hct MCV MCH MCHC RDW Std Deviation RDW Coeff of Neftaly Plt Count MPV Immature Gran % (Auto) Neut % (Auto) Lymph % (Auto) Mckenzie % (Auto) Eos % (Auto) Baso % (Auto) Immature Gran # (Auto) Neut # (Auto) Lymph # (Auto) Mckenzie # (Auto) Eos # (Auto) Baso # (Auto) Cord ABG pH Cord ABG pCO2 Cord ABG pO2 Cord ABG HCO3 Cord ABG Base Excess Cord ABG O2 Sat Cord VBG pH Cord VBG pCO2 Cord VBG pO2 Cord VBG HCO3 Cord VBG Base Excess Cord VBG O2 Sat Barometric Pressure Blood Gas Comments POC Glucose 59 L* 87 78 11/19/18 11/19/18 11/19/18 17:30 19:30 21:33 WBC RBC Hgb Hct MCV MCH MCHC RDW Std Deviation RDW Coeff of Neftaly Plt Count MPV Immature Gran % (Auto) Neut % (Auto) Lymph % (Auto) Mckenzie % (Auto) Eos % (Auto) Baso % (Auto) Immature Gran # (Auto) Neut # (Auto) Lymph # (Auto) Mckenzie # (Auto) Eos # (Auto) Baso # (Auto) Cord ABG pH Cord ABG pCO2 Cord ABG pO2 Cord ABG HCO3 Cord ABG Base Excess Cord ABG O2 Sat Cord VBG pH Cord VBG pCO2 Cord VBG pO2 Cord VBG HCO3 Cord VBG Base Excess Cord VBG O2 Sat Barometric Pressure Blood Gas Comments POC Glucose 77 74 97 11/19/18 11/20/18 11/20/18 23:33 00:00 01:50 WBC RBC Hgb Hct MCV MCH MCHC RDW Std Deviation RDW Coeff of Neftaly Plt Count MPV Immature Gran % (Auto) Neut % (Auto) Lymph % (Auto) Mckenzie % (Auto) Eos % (Auto) Baso % (Auto) Immature Gran # (Auto) Neut # (Auto) Lymph # (Auto) Mckenzie # (Auto) Eos # (Auto) Baso # (Auto) Cord ABG pH Cord ABG pCO2 Cord ABG pO2 Cord ABG HCO3 Cord ABG Base Excess Cord ABG O2 Sat Cord VBG pH Cord VBG pCO2 Cord VBG pO2 Cord VBG HCO3 Cord VBG Base Excess Cord VBG O2 Sat Barometric Pressure Blood Gas Comments POC Glucose 59 L* 78 126 H 11/20/18 11/20/18 11/20/18 03:42 03:44 04:26 WBC RBC Hgb Hct MCV MCH MCHC RDW Std Deviation RDW Coeff of Neftaly Plt Count MPV Immature Gran % (Auto) Neut % (Auto) Lymph % (Auto) Mckenzie % (Auto) Eos % (Auto) Baso % (Auto) Immature Gran # (Auto) Neut # (Auto) Lymph # (Auto) Mckenzie # (Auto) Eos # (Auto) Baso # (Auto) Cord ABG pH Cord ABG pCO2 Cord ABG pO2 Cord ABG HCO3 Cord ABG Base Excess Cord ABG O2 Sat Cord VBG pH Cord VBG pCO2 Cord VBG pO2 Cord VBG HCO3 Cord VBG Base Excess Cord VBG O2 Sat Barometric Pressure Blood Gas Comments POC Glucose 64 L* 69 L* 105 H 11/20/18 11/20/18 11/20/18 06:28 06:51 08:55 WBC RBC Hgb Hct MCV MCH MCHC RDW Std Deviation RDW Coeff of Neftaly Plt Count MPV Immature Gran % (Auto) Neut % (Auto) Lymph % (Auto) Mckenzie % (Auto) Eos % (Auto) Baso % (Auto) Immature Gran # (Auto) Neut # (Auto) Lymph # (Auto) Mckenzie # (Auto) Eos # (Auto) Baso # (Auto) Cord ABG pH Cord ABG pCO2 Cord ABG pO2 Cord ABG HCO3 Cord ABG Base Excess Cord ABG O2 Sat Cord VBG pH Cord VBG pCO2 Cord VBG pO2 Cord VBG HCO3 Cord VBG Base Excess Cord VBG O2 Sat Barometric Pressure Blood Gas Comments POC Glucose 61 L* 87 147 H 11/20/18 11/20/18 11/20/18 10:57 10:59 11:20 WBC RBC Hgb Hct MCV MCH MCHC RDW Std Deviation RDW Coeff of Neftaly Plt Count MPV Immature Gran % (Auto) Neut % (Auto) Lymph % (Auto) Mckenzie % (Auto) Eos % (Auto) Baso % (Auto) Immature Gran # (Auto) Neut # (Auto) Lymph # (Auto) Mckenzie # (Auto) Eos # (Auto) Baso # (Auto) Cord ABG pH Cord ABG pCO2 Cord ABG pO2 Cord ABG HCO3 Cord ABG Base Excess Cord ABG O2 Sat Cord VBG pH Cord VBG pCO2 Cord VBG pO2 Cord VBG HCO3 Cord VBG Base Excess Cord VBG O2 Sat Barometric Pressure Blood Gas Comments POC Glucose 58 L* 57 L* 88 11/20/18 11/20/18 11/20/18 12:32 12:33 12:55 WBC RBC Hgb Hct MCV MCH MCHC RDW Std Deviation RDW Coeff of Neftaly Plt Count MPV Immature Gran % (Auto) Neut % (Auto) Lymph % (Auto) Mckenzie % (Auto) Eos % (Auto) Baso % (Auto) Immature Gran # (Auto) Neut # (Auto) Lymph # (Auto) Mckenzie # (Auto) Eos # (Auto) Baso # (Auto) Cord ABG pH Cord ABG pCO2 Cord ABG pO2 Cord ABG HCO3 Cord ABG Base Excess Cord ABG O2 Sat Cord VBG pH Cord VBG pCO2 Cord VBG pO2 Cord VBG HCO3 Cord VBG Base Excess Cord VBG O2 Sat Barometric Pressure Blood Gas Comments POC Glucose 46 L* 50 L* 78 11/20/18 11/20/18 11/20/18 13:58 13:59 14:19 WBC RBC Hgb Hct MCV MCH MCHC RDW Std Deviation RDW Coeff of Neftaly Plt Count MPV Immature Gran % (Auto) Neut % (Auto) Lymph % (Auto) Mckenzie % (Auto) Eos % (Auto) Baso % (Auto) Immature Gran # (Auto) Neut # (Auto) Lymph # (Auto) Mckenzie # (Auto) Eos # (Auto) Baso # (Auto) Cord ABG pH Cord ABG pCO2 Cord ABG pO2 Cord ABG HCO3 Cord ABG Base Excess Cord ABG O2 Sat Cord VBG pH Cord VBG pCO2 Cord VBG pO2 Cord VBG HCO3 Cord VBG Base Excess Cord VBG O2 Sat Barometric Pressure Blood Gas Comments POC Glucose 65 L* 64 L* 74 11/20/18 11/20/18 11/20/18 15:56 17:02 17:59 WBC RBC Hgb Hct MCV MCH MCHC RDW Std Deviation RDW Coeff of Neftaly Plt Count MPV Immature Gran % (Auto) Neut % (Auto) Lymph % (Auto) Mckenzie % (Auto) Eos % (Auto) Baso % (Auto) Immature Gran # (Auto) Neut # (Auto) Lymph # (Auto) Mckenzie # (Auto) Eos # (Auto) Baso # (Auto) Cord ABG pH Cord ABG pCO2 Cord ABG pO2 Cord ABG HCO3 Cord ABG Base Excess Cord ABG O2 Sat Cord VBG pH Cord VBG pCO2 Cord VBG pO2 Cord VBG HCO3 Cord VBG Base Excess Cord VBG O2 Sat Barometric Pressure Blood Gas Comments POC Glucose 91 104 H 101 H 11/20/18 11/20/18 11/20/18 18:58 20:02 21:00 WBC RBC Hgb Hct MCV MCH MCHC RDW Std Deviation RDW Coeff of Neftaly Plt Count MPV Immature Gran % (Auto) Neut % (Auto) Lymph % (Auto) Mckenzie % (Auto) Eos % (Auto) Baso % (Auto) Immature Gran # (Auto) Neut # (Auto) Lymph # (Auto) Mckenzie # (Auto) Eos # (Auto) Baso # (Auto) Cord ABG pH Cord ABG pCO2 Cord ABG pO2 Cord ABG HCO3 Cord ABG Base Excess Cord ABG O2 Sat Cord VBG pH Cord VBG pCO2 Cord VBG pO2 Cord VBG HCO3 Cord VBG Base Excess Cord VBG O2 Sat Barometric Pressure Blood Gas Comments POC Glucose 106 H 104 H 95 11/20/18 11/20/18 11/21/18 22:01 23:01 00:06 WBC RBC Hgb Hct MCV MCH MCHC RDW Std Deviation RDW Coeff of Neftaly Plt Count MPV Immature Gran % (Auto) Neut % (Auto) Lymph % (Auto) Mckenzie % (Auto) Eos % (Auto) Baso % (Auto) Immature Gran # (Auto) Neut # (Auto) Lymph # (Auto) Mckenzie # (Auto) Eos # (Auto) Baso # (Auto) Cord ABG pH Cord ABG pCO2 Cord ABG pO2 Cord ABG HCO3 Cord ABG Base Excess Cord ABG O2 Sat Cord VBG pH Cord VBG pCO2 Cord VBG pO2 Cord VBG HCO3 Cord VBG Base Excess Cord VBG O2 Sat Barometric Pressure Blood Gas Comments POC Glucose 90 83 89 11/21/18 11/21/18 11/21/18 01:06 02:03 03:05 WBC RBC Hgb Hct MCV MCH MCHC RDW Std Deviation RDW Coeff of Neftaly Plt Count MPV Immature Gran % (Auto) Neut % (Auto) Lymph % (Auto) Mckenzie % (Auto) Eos % (Auto) Baso % (Auto) Immature Gran # (Auto) Neut # (Auto) Lymph # (Auto) Mckenzie # (Auto) Eos # (Auto) Baso # (Auto) Cord ABG pH Cord ABG pCO2 Cord ABG pO2 Cord ABG HCO3 Cord ABG Base Excess Cord ABG O2 Sat Cord VBG pH Cord VBG pCO2 Cord VBG pO2 Cord VBG HCO3 Cord VBG Base Excess Cord VBG O2 Sat Barometric Pressure Blood Gas Comments POC Glucose 100 H 108 H 92 11/21/18 11/21/18 11/21/18 03:52 05:05 06:07 WBC RBC Hgb Hct MCV MCH MCHC RDW Std Deviation RDW Coeff of Neftaly Plt Count MPV Immature Gran % (Auto) Neut % (Auto) Lymph % (Auto) Mckenzie % (Auto) Eos % (Auto) Baso % (Auto) Immature Gran # (Auto) Neut # (Auto) Lymph # (Auto) Mckenzie # (Auto) Eos # (Auto) Baso # (Auto) Cord ABG pH Cord ABG pCO2 Cord ABG pO2 Cord ABG HCO3 Cord ABG Base Excess Cord ABG O2 Sat Cord VBG pH Cord VBG pCO2 Cord VBG pO2 Cord VBG HCO3 Cord VBG Base Excess Cord VBG O2 Sat Barometric Pressure Blood Gas Comments POC Glucose 110 H 101 H 103 H 11/21/18 11/21/18 11/21/18 07:02 07:58 09:02 WBC RBC Hgb Hct MCV MCH MCHC RDW Std Deviation RDW Coeff of Neftaly Plt Count MPV Immature Gran % (Auto) Neut % (Auto) Lymph % (Auto) Mckenzie % (Auto) Eos % (Auto) Baso % (Auto) Immature Gran # (Auto) Neut # (Auto) Lymph # (Auto) Mckenzie # (Auto) Eos # (Auto) Baso # (Auto) Cord ABG pH Cord ABG pCO2 Cord ABG pO2 Cord ABG HCO3 Cord ABG Base Excess Cord ABG O2 Sat Cord VBG pH Cord VBG pCO2 Cord VBG pO2 Cord VBG HCO3 Cord VBG Base Excess Cord VBG O2 Sat Barometric Pressure Blood Gas Comments POC Glucose 88 94 101 H 11/21/18 11/21/18 11/21/18 10:04 11:04 12:01 WBC RBC Hgb Hct MCV MCH MCHC RDW Std Deviation RDW Coeff of Neftaly Plt Count MPV Immature Gran % (Auto) Neut % (Auto) Lymph % (Auto) Mckenzie % (Auto) Eos % (Auto) Baso % (Auto) Immature Gran # (Auto) Neut # (Auto) Lymph # (Auto) Mckenzie # (Auto) Eos # (Auto) Baso # (Auto) Cord ABG pH Cord ABG pCO2 Cord ABG pO2 Cord ABG HCO3 Cord ABG Base Excess Cord ABG O2 Sat Cord VBG pH Cord VBG pCO2 Cord VBG pO2 Cord VBG HCO3 Cord VBG Base Excess Cord VBG O2 Sat Barometric Pressure Blood Gas Comments POC Glucose 97 101 H 108 H 11/21/18 11/21/18 11/21/18 13:02 14:00 14:58 WBC RBC Hgb Hct MCV MCH MCHC RDW Std Deviation RDW Coeff of Neftaly Plt Count MPV Immature Gran % (Auto) Neut % (Auto) Lymph % (Auto) Mckenzie % (Auto) Eos % (Auto) Baso % (Auto) Immature Gran # (Auto) Neut # (Auto) Lymph # (Auto) Mckenzie # (Auto) Eos # (Auto) Baso # (Auto) Cord ABG pH Cord ABG pCO2 Cord ABG pO2 Cord ABG HCO3 Cord ABG Base Excess Cord ABG O2 Sat Cord VBG pH Cord VBG pCO2 Cord VBG pO2 Cord VBG HCO3 Cord VBG Base Excess Cord VBG O2 Sat Barometric Pressure Blood Gas Comments POC Glucose 124 H 107 H 113 H 11/21/18 11/21/18 11/21/18 15:54 16:41 16:41 WBC RBC Hgb Hct MCV MCH MCHC RDW Std Deviation RDW Coeff of Neftaly Plt Count MPV Immature Gran % (Auto) Neut % (Auto) Lymph % (Auto) Mckenzie % (Auto) Eos % (Auto) Baso % (Auto) Immature Gran # (Auto) Neut # (Auto) Lymph # (Auto) Mckenzie # (Auto) Eos # (Auto) Baso # (Auto) Cord ABG pH 7.23 Cord ABG pCO2 65 Cord ABG pO2 17.0 Cord ABG HCO3 27 Cord ABG Base Excess -2.8 Cord ABG O2 Sat < 60.0 Cord VBG pH 7.29 Cord VBG pCO2 55 Cord VBG pO2 21 Cord VBG HCO3 26 Cord VBG Base Excess -1.6 Cord VBG O2 Sat < 60.0 Barometric Pressure 733.2 733.3 Blood Gas Comments A INFANT A POC Glucose 112 H 11/21/18 11/22/18 11/22/18 18:45 00:02 03:54 WBC RBC Hgb Hct MCV MCH MCHC RDW Std Deviation RDW Coeff of Nfetaly Plt Count MPV Immature Gran % (Auto) Neut % (Auto) Lymph % (Auto) Mckenzie % (Auto) Eos % (Auto) Baso % (Auto) Immature Gran # (Auto) Neut # (Auto) Lymph # (Auto) Mckenzie # (Auto) Eos # (Auto) Baso # (Auto) Cord ABG pH Cord ABG pCO2 Cord ABG pO2 Cord ABG HCO3 Cord ABG Base Excess Cord ABG O2 Sat Cord VBG pH Cord VBG pCO2 Cord VBG pO2 Cord VBG HCO3 Cord VBG Base Excess Cord VBG O2 Sat Barometric Pressure Blood Gas Comments POC Glucose 152 H 147 H 57 L* 11/22/18 11/22/18 11/22/18 03:56 05:10 06:44 WBC 11.52 H RBC 4.35 Hgb 10.3 L Hct 31.1 L MCV 71.5 L MCH 23.7 L MCHC 33.1 RDW Std Deviation 43.1 RDW Coeff of Neftaly 16.5 H Plt Count 132 MPV 9.5 Immature Gran % (Auto) 0.3 Neut % (Auto) 79.0 Lymph % (Auto) 12.9 Mckenzie % (Auto) 7.6 Eos % (Auto) 0.1 Baso % (Auto) 0.1 Immature Gran # (Auto) 0.03 H Neut # (Auto) 9.11 H Lymph # (Auto) 1.49 Mckenzie # (Auto) 0.87 H Eos # (Auto) 0.01 Baso # (Auto) 0.01 Cord ABG pH Cord ABG pCO2 Cord ABG pO2 Cord ABG HCO3 Cord ABG Base Excess Cord ABG O2 Sat Cord VBG pH Cord VBG pCO2 Cord VBG pO2 Cord VBG HCO3 Cord VBG Base Excess Cord VBG O2 Sat Barometric Pressure Blood Gas Comments POC Glucose 63 L* 78 11/22/18 11/22/18 07:39 08:45 WBC RBC Hgb Hct MCV MCH MCHC RDW Std Deviation RDW Coeff of Neftaly Plt Count MPV Immature Gran % (Auto) Neut % (Auto) Lymph % (Auto) Mckenzie % (Auto) Eos % (Auto) Baso % (Auto) Immature Gran # (Auto) Neut # (Auto) Lymph # (Auto) Mckenzie # (Auto) Eos # (Auto) Baso # (Auto) Cord ABG pH Cord ABG pCO2 Cord ABG pO2 Cord ABG HCO3 Cord ABG Base Excess Cord ABG O2 Sat Cord VBG pH Cord VBG pCO2 Cord VBG pO2 Cord VBG HCO3 Cord VBG Base Excess Cord VBG O2 Sat Barometric Pressure Blood Gas Comments POC Glucose 48 L* 91
[2018-11-22] MEDS: DOCUSATE SODIUM 100 MG CAP PO SCH ×2 (10:09→20:42)
[2018-11-22] MEDS: PRENATAL VITAMIN 1 TAB PO SCH (10:09)
[2018-11-22] MEDS: FERROUS SULFATE 325 MG TAB PO SCH (10:09)
[2018-11-22] MEDS: SIMETHICONE 80 MG CHEW PO SCH ×4 (10:09→20:42)
[2018-11-22] MEDS ORDERED: PROMETHAZINE HCL 25 MG in SODIUM CHLORIDE 0.9% 50 ML IV PRN (10:47)
[2018-11-22] MEDS: LABETALOL HCL 100 MG TAB PO SCH ×2 (12:31→20:42)
--- NOTE | 2018-11-22 13:39 | Pharmacy Report ---
Pharmacy Glycemic Short Note 2 - Date of Service November 22, 2018 - Glycemic Short BSG Results (Last 24 hours): 11/21/18 11/21/18 11/21/18 13:02 14:00 14:58 POC Glucose 124 H 107 H 113 H 11/21/18 11/21/18 11/22/18 15:54 18:45 00:02 POC Glucose 112 H 152 H 147 H 11/22/18 11/22/18 11/22/18 03:54 03:56 05:10 POC Glucose 57 L* 63 L* 78 11/22/18 11/22/18 11/22/18 07:39 08:45 12:05 POC Glucose 48 L* 91 58 L* ASSESSMENT/PLAN: * Placed insulin pump on hold this AM around 0915, after some concerning lows. Rechecked BSGs a few hours later to find lows continued. Spoke with nursing, pump was never removed. I went to speak with pt bedside and asked her to decrease her basal rate to 1.5u/hr. * Sera Gm was agreeable to this. Will continue to monitor.
[2018-11-22] MEDS: IBUPROFEN 600 MG TAB PO PRN ×2 (14:07→20:47)
[2018-11-22] MEDS ORDERED: BISACODYL 5 MG TABEC PO SCH (20:00)
[2018-11-22] MEDS: OXYCODONE/ACETAMINOPHEN 5mg/325mg TAB PO PRN (20:48)
[2018-11-23 06:38] LABS: Hematocrit (blood only) 31.7 % (37-47); Hemoglobin 10.2 g/dL (12.0-16.0)
[2018-11-23] MEDS: NovoLOG INSULIN PUMP SCH ×2 (07:30→11:30)
[2018-11-23] MEDS: OXYCODONE/ACETAMINOPHEN 5mg/325mg TAB PO PRN ×3 (08:03→20:55)
[2018-11-23] MEDS: IBUPROFEN 600 MG TAB PO PRN ×3 (08:04→20:55)
[2018-11-23] MEDS: FERROUS SULFATE 325 MG TAB PO SCH (08:26)
[2018-11-23] MEDS: PRENATAL VITAMIN 1 TAB PO SCH (08:26)
[2018-11-23] MEDS: SIMETHICONE 80 MG CHEW PO SCH ×4 (08:26→20:54)
[2018-11-23] MEDS: DOCUSATE SODIUM 100 MG CAP PO SCH ×2 (08:26→20:54)
[2018-11-23] MEDS: LABETALOL HCL 100 MG TAB PO SCH ×2 (09:01→20:55)
--- NOTE | 2018-11-23 11:09 | Obstetrical Progress Note ---
Date of Service November 23, 2018 C/sec day #2 Pt doing well No complaints Hx fo CHTN before - started on labetalol 100mg BID and doing well continue with meds Subjective Ambulation: ambulating normally Voiding: no voiding problems Passing Gas:: Yes Diet Tolerance:: clear liquids Lochia:: Small Feeding Type:: breast feeding Review of Systems All systems reviewed & are unremarkable except as noted in HPI & below Physical Exam Constitutional WD/WN, vitals as above well developed and well nourished Eyes PERRL, conjunctivae normal, anicteric sclerae ENMT external ear and nose normal, oropharynx normal Neck trachea midline, no thyromegaly Respiratory normal respiratory effort, lungs clear to auscultation Cardiovascular RRR, no murmur, no edema Chest (Breasts) normal inspection/palpation of breasts Gastrointestinal (Abdomen) normal bowel sounds, soft, nontender, no hepatosplenomegaly Musculoskeletal no cyanosis or clubbing, extremities motor strength 5/5 Skin no rashes, warm and dry + incision (Clean,dry and intact) Neurologic patellar DTR's 2+ bilat, sensation intact Psychiatric A+Ox3, euthymic affect Genitourinary normal external appearance Lymphatic no cervical or axillary lymphadenopathy Results & Data Vital Signs (Past 12 Hours) Vital Signs Temp Pulse Resp BP Pulse Ox 11/23/18 09:00 106 H 20 148/77 H 98 11/23/18 07:55 36.7 C 97 H 18 150/91 H 11/22/18 23:53 36.8 C 86 20 124/81 98
--- NOTE | 2018-11-23 14:14 | Pharmacy Report ---
Pharmacy Glycemic Short Note 2 - Date of Service November 23, 2018 - Glycemic Short BSG Results (Last 24 hours): 11/22/18 11/22/18 11/22/18 14:36 17:03 18:42 POC Glucose 60 L* 72 53 L* 11/22/18 11/23/18 11/23/18 19:54 06:13 06:34 POC Glucose 71 61 L* 64 L* 11/23/18 11/23/18 11/23/18 06:55 08:25 11:35 POC Glucose 93 72 70 ASSESSMENT/PLAN: 11/23 * BSGs continue to be on lower end, hypoglycemic this morning, 70 before lunch * Discussed with Ms. Worrell further reduction in basal/possible loosening of carb ratio in the morning with hypoglycemic episode. Patient wanted to wait until lunch for further reductions. Lunch BSG 70, therefore decreased basal rate to 1 unit/hr (previous order was to resume at 1 unit/hr but it was still running at 1.5 units/hr). Have not changed carb ratio's at this time, as patient was hesitant to change in insulin pump/may consider change if bsgs continue to be low. 11/22 * Placed insulin pump on hold this AM around 0915, after some concerning lows. Rechecked BSGs a few hours later to find lows continued. Spoke with nursing, pump was never removed. I went to speak with pt bedside and asked her to decrease her basal rate to 1.5u/hr. * Ms. Worrell was agreeable to this. Will continue to monitor.
[2018-11-23] MEDS ORDERED: BISACODYL 10 MG SUPP PR PRN (17:45)
[2018-11-24] MEDS: IBUPROFEN 600 MG TAB PO PRN ×2 (00:30→07:43)
[2018-11-24] MEDS: OXYCODONE/ACETAMINOPHEN 5mg/325mg TAB PO PRN ×2 (00:31→07:42)
[2018-11-24] MEDS: SIMETHICONE 80 MG CHEW PO SCH (07:42)
[2018-11-24] MEDS: PRENATAL VITAMIN 1 TAB PO SCH (07:42)
[2018-11-24] MEDS: FERROUS SULFATE 325 MG TAB PO SCH (07:42)
[2018-11-24] MEDS: DOCUSATE SODIUM 100 MG CAP PO SCH (07:42)
[2018-11-24] MEDS: LABETALOL HCL 100 MG TAB PO SCH (08:31)
[2018-11-24] MEDS ORDERED: MAGNESIUM HYDROXIDE SUSP 30 ML UDC PO PRN (09:04)
[2018-11-24] MEDS ORDERED: HYDROCORTISONE ACETATE 25 MG SUPP PR PRN (09:04)
[2018-11-24] MEDS ORDERED: IBUPROFEN 600 MG TAB PO PRN (09:04)
[2018-11-24] MEDS ORDERED: SUPERCREAM 0.870% 15 GM JAR EXT PRN (09:04)
[2018-11-24] MEDS ORDERED: BENZOCAINE 20% AER SPR 82.5 GM CAN EXT PRN (09:04)
[2018-11-24] MEDS ORDERED: SENNA 8.6 MG TAB PO PRN (09:04)
[2018-11-24] MEDS ORDERED: OXYCODONE/ACETAMINOPHEN 5mg/325mg TAB PO PRN (09:04)
[2018-11-24] MEDS ORDERED: PROMETHAZINE HCL 25 MG in SODIUM CHLORIDE 0.9% 50 ML IV PRN (09:04)
[2018-11-24] MEDS ORDERED: DiphenhydrAMINE HCL 50 MG/ML VIAL IV PRN (09:04)
[2018-11-24] MEDS ORDERED: DIPHTHERIA/TETANUS/PERTUSSIS 0.5 ML SYR/VIAL IM ONE (09:04)
[2018-11-24] MEDS ORDERED: ONDANSETRON INJ 2 MG/ML 2 ML VIAL IV PRN (09:04)
--- NOTE | 2018-11-24 09:04 | Post Operative Brief Note ---
Immediate Post Op Note v1 Date of Surgery November 24, 2018 Pre & Post Diagnosis Operation Date: 11/21/18 15:30 Pre-Op Diagnosis: INDUCTION, FAILURE TO DESCEND, CPD, MECONIUM, TYPE 2 DIABETES. Post-Op Diagnosis: INDUCTION, FAILURE TO DESCEND, CPD, MECONIUM, TYPE 2 DIABETES. Procedure Operation Date: 11/21/18 15:30 Actual Procedures p Section in LD(Bilateral) - Tommie Resendez MD Surgeon Tommie Resendez MD Cane Piler dr alejo Estimated Blood Loss 500 Findings Consistent with Post-Op Diagnosis Drains Arreola Catheter (inserted prior to arrival to OR draining clear yellow urine)
[2018-11-24] MEDS ORDERED: LACTATED RINGER'S 1,000 ML IV SCH (09:15)
--- NOTE | 2018-11-24 10:14 | Obstetrical Progress Note ---
Date of Service November 24, 2018 Physical Exam Physical Exam: abdomen soft and non tender vaginal bleeding scant to moderate no calf tenderness hgb 10.2 ambulating well Results & Data Vital Signs (Past 12 Hours) Vital Signs Temp Pulse Resp BP Pulse Ox 11/24/18 07:30 36.9 C 94 H 20 135/80 98 11/23/18 23:00 36.6 C 96 H 18 129/84
[2018-11-24] MEDS ORDERED: SIMETHICONE 80 MG CHEW PO SCH (13:00)
[2018-11-24] MEDS ORDERED: OXYTOCIN 20 UNITS in LACTATED RINGER'S 1,000 ML IV SCH (20:45)
[2018-11-24] MEDS ORDERED: DOCUSATE SODIUM 100 MG CAP PO SCH (21:00)
--- NOTE | 2018-11-25 01:52 | Discharge Summary ---
Mrs. Worrell is followed by the [facility] for care and delivery. She is an insulin-dependent diabetic. She managed with an insulin pump, sugars were well controlled. She was brought in for induction at 39 weeks. She had a 3-day attempted induction which failed. She did become fully dilated and pushed for over 2 hours, she had a failure descent. Primary was performed without difficulty. 's Apgars were good. At the time of , she had a VIKTOR drain placed on the incision and on 11/24/2018, she was ambulating well, eating well. Her preoperative hemoglobin was 11.0, hematocrit 33. Postoperatively, hemoglobin fell to 10.2, hematocrit 31.7. At time of discharge, she was ambulating well, eating well. Pain was well controlled with a combination of Percocet and Motrin. She is taking her Percocet every 8 hours. She was given the usual instructions to call the office if she had a temperature over 100, call if she had any heavy bleeding which consisted of soaking a pad an hour for 2 hours. Otherwise to return to the office for management of the drain.
[2018-11-25] MEDS ORDERED: FERROUS SULFATE 325 MG TAB PO SCH (08:00)
[2018-11-25] MEDS ORDERED: PRENATAL VITAMIN 1 TAB PO SCH (08:00)
[2018-11-25] MEDS ORDERED: BISACODYL 5 MG TABEC PO SCH (20:00)
[2018-11-26] MEDS ORDERED: BISACODYL 10 MG SUPP PR PRN (09:04)
== END 2018-11-24 11:00 | disposition home or self-care (01) | DRG 788 ==
LOC: 4S1 07:41 → 4S2 11-21 20:15

== ENCOUNTER 2022-01-25 00:46 | Inpatient (IN) ==
[2022-01-25] MEDS ORDERED: AMIODARONE 360MG / 200ML D5W IV ONE (01:23)
[2022-01-25] MEDS ORDERED: AMIODARONE 150MG / 100ML D5W IV ONE (01:23)
[2022-01-25] MEDS ORDERED: LORazepam 2 MG/1 ML VIAL IV STA (01:31)
[2022-01-25 01:41] LABS: Basophils # (auto) 0.03 K/uL (0-0.2); Basophils % (auto) 0.3 %; Eosinophils # (auto) 0.13 K/uL (0-0.50); Eosinophils % (auto) 1.5 %; Hematocrit (blood only) 42.4 % (34.1-44.9); Hemoglobin 13.6 g/dl (12.0-16.0); Immature Granulocytes # (auto) 0.03 K/uL (0.00-0.02); Immature Granulocytes % (auto) 0.3 %; Lymphocytes # (auto) 2.28 K/uL (1.2-3.4); Lymphocytes % (auto) 25.6 %; Mean Corpuscular Hemoglobin 23.7 pg (25.0-34.0); Mean Corpuscular Hgb Conc 32.1 g/dL (32.0-36.0); Mean Platelet Volume 12.3 fL (9.4-12.3); Monocytes # (auto) 0.49 K/uL (0.24-0.82); Monocytes % (auto) 5.5 %; Neutrophils # (auto) 5.96 K/uL (1.4-6.5); Neutrophils % (auto) 66.8 %; Platelet Count 220 K/uL (130-400); RDW Coefficient of Variation 14.2 % (11.5-14.5); RDW Standard Deviation 37.7 fL (36.4-46.3); Red Blood Count 5.73 M/uL (3.93-5.22); White Blood Count 8.92 K/ul (4.8-10.8)
[2022-01-25 01:52] LABS: Pregnancy Test, Serum Negative (Negative)
[2022-01-25 02:07] LABS: Alanine Aminotransferase 22 U/L (7-52); Albumin Level 3.9 gm/dl (3.4-5.0); Alkaline Phosphatase 105 U/L (34-104); Anion Gap 10 (3-11); Aspartate Aminotransferase 26 U/L (13-39); BUN Creatinine Ratio 11.8 (10-20); Bilirubin,Total 0.4 mg/dl (0.2-1.0); Blood Urea Nitrogen 8 mg/dl (6-23); Calcium 9.1 mg/dl (8.5-10.1); Carbon Dioxide 26 mmol/L (21-32); Chloride 98 mmol/L (98-107); Est GFR (African American) 131.3 ml/min; Est GFR (Non-African American) 113.3 ml/min; Globulin 4.1 gm/dl (2.5-4.0); Glucose 390 mg/dl (70-99(Fasting)); Magnesium 1.5 mg/dl (1.7-2.4); Potassium 3.3 mmol/L (3.5-5.1); Sodium 134 mmol/L (136-145); Troponin I High Sensitivity 7.6 pg/ml (0-14)
[2022-01-25] MEDS ORDERED: SODIUM CHLORIDE 0.9% 500 ML IV ONE (02:47)
[2022-01-25] MEDS ORDERED: MAGNESIUM SULFATE / D5W 1 GM/100 ML BAG IV STA (02:48)
[2022-01-25] MEDS ORDERED: POTASSIUM CHLORIDE CRTAB 20 MEQ TABCR PO STA ×2 (03:15→08:59)
[2022-01-25] MEDS ORDERED: SODIUM CHLORIDE 0.9% 1000ML 1,000 ML IV SCH (05:41)
[2022-01-25] MEDS ORDERED: NITROGLYCERIN SL 0.4 MG/TAB TAB SL PRN (05:41)
[2022-01-25] MEDS ORDERED: CLOTRIMAZOLE/BETAMETHASONE CR 15 GM TUBE EXT PRN (05:41)
[2022-01-25] MEDS ORDERED: POLYETHYLENE (MIRALAX) 17 GM PACK PO PRN (05:41)
[2022-01-25] MEDS ORDERED: LABETALOL HCL IV 5 MG/ML 20ML IV PRN (05:41)
--- NOTE | 2022-01-25 05:54 | History and Physical Report ---
DATE OF ADMISSION: 01/25/2022. CHIEF COMPLAINT: Tachycardia. HISTORY OF PRESENT ILLNESS: A 36-year-old female with past medical history significant for type 2 diabetes, diabetic polyneuropathy, diabetic retinopathy, polycystic ovarian syndrome, obstructive sleep apnea, obstructive lung disease, hypertension, morbid obesity, GERD, chronic bilateral low back pain, migraines, umbilical hernia, depression, who presents because of tachycardia. The patient says she was having cold and runny nose and cough and she took Claritin at 9:00 p.m., then at 11:00 she took Benadryl, when she felt shakiness and palpitations and somewhat dizzy, so she was brought in to the hospital for tachycardia. There seems to had runs of v tach, so she was started on amiodarone drip. Currently, resting comfortably and hemodynamically stable. Blood pressure running high. The patient denies any headache. No blurred visions, no earache, no sore throat. Has some cough. No fever, no chills. No difficulty swallowing. No chest pain, no shortness of breath. No nausea, no abdominal pain. Normal bowel and bladder movements. She did not have this kind of episode in the past. ALLERGIES: BANANA, LISINOPRIL, PEACH, PINEAPPLE FRUIT. PAST MEDICAL HISTORY: As mentioned above. PAST SURGICAL HISTORY: Appendectomy, treated missed , left salpingo- oophorectomy. MEDICATIONS: The patient is on albuterol 1 puff inhalation q. 4 hours p.r.n., Norvasc 10 mg p.o. a.m., aspirin 81 mg p.o. daily, Wellbutrin XL 300 mg p.o. a.m., Coreg 6.25 mg p.o. b.i.d., Zyrtec 10 mg p.o. a.m., ferrous sulfate 325 mg p.o. a.m., gabapentin 300 mg p.o. t.i.d., on insulin pump, metformin 1000 mg a.m. and 1500 mg a.m., multivitamin 1 tablet daily, Zofran 4 mg p.r.n., valsartan 320 mg p.o. a.m. FAMILY HISTORY: Significant for father had diabetes; mother has diabetes, hyperlipidemia, hypertension; maternal grandmother has diabetes. SOCIAL HISTORY: Single. Quit smoking in 2008. No alcohol use. No drug use. REVIEW OF SYSTEMS: As per HPI. Rest of review of systems is negative. PHYSICAL EXAMINATION: GENERAL: The patient is morbidly obese, not in acute distress. VITAL SIGNS: Temperature afebrile, pulse 130s, respiratory rate 28, blood pressure currently 238/113, oxygen 98% on room air. HEENT: Pupils equal, round and reactive to light. Oral mucosa moist. NECK: No JVD, no neck masses. CARDIOVASCULAR: S1 and S2 heard, tachycardia, somewhat irregular rhythm. RESPIRATORY SYSTEM: Normal AP diameter. No accessory muscle use. No wheezing, no crackles. ABDOMEN: Soft, bowel sounds present, nontender, no distention. CENTRAL NERVOUS SYSTEM: Cranial nerves II-XII grossly intact, nonfocal. EXTREMITIES: Mild edema, no erythema seen. LABORATORY DATA: WBC is 8.9, hemoglobin 13.6, hematocrit 42.4, platelets 220. Sodium 134, potassium 3.3, chloride 98, bicarbonate 26, BUN 8, creatinine 0.6, serum glucose 338, calcium 9.1, magnesium 1.5, total bilirubin 0.4, AST 26, ALT 22, alkaline phosphatase 105. Troponin I high sensitivity 7.6. TSH 2.6. HCG qualitative negative. SARS-CoV-2 rapid test negative. IMAGING DATA: CTA, chest x-ray, no acute findings. EKG: Sinus tachycardia with frequent PVCs and fusion complexes, rate of 124. Nonspecific T-wave abnormality, QTc 474. ASSESSMENT AND PLAN: This is a 36-year-old female who presents with tachycardia. 1. Tachycardia Runs of ventricular tachycardia?. EKG is showing frequent PVCs and fusion complexes and monitor is also showing PVCs. Amiodarone drip was started, which will be continued. Repeat cardiac enzymes. Keep n.p.o., echocardiogram, and consult cardiology in the a.m. Symptoms started after taking Claritin at 9:00 p.m. and Benadryl at 11:00 p.m. tonight, could be a drug reaction. On gentle fluids.Close monitor. 2. Electrolyte abnormalities: Lab show magnesium 1.5, potassium 3.3, will replace. Follow the labs. 3. History of diabetes: On insulin pump. Placed on sliding scale. Follow the blood sugars closely. 4. History of sleep apnea. 5. Morbid obesity: Needs counseling. 6. Depression: On Wellbutrin. 7. Hypertension: On Coreg, amlodipine, valsartan. Will place on IV labetalol p.r.n. Closely monitor the blood pressure. 8. Deep venous thrombosis prophylaxis: Sequential compression devices for now. DISPOSITION: Closely monitor in the tele floor. Level 1 full code. Expect to discharge home and follow with family doctor. Job ID: [id number] [facility]
[2022-01-25] MEDS ORDERED: STAT IV Infusion **Titration per Protocol STA (06:10)
[2022-01-25] MEDS ORDERED: 0.2 MICRON FILTER SET 1 EACH IV STA (06:10)
[2022-01-25] MEDS ORDERED: AMIODARONE IV BOLUS & DRIP IV STA (06:10)
[2022-01-25] MEDS ORDERED: AMIODARONE / D5W 150 MG/100 ML BAG IV STA (06:10)
[2022-01-25] MEDS ORDERED: AMIODARONE / D5W 360 MG/200 ML BAG IV ONE (06:20)
[2022-01-25] MEDS ORDERED: GLUCAGON FOR INJ 1 MG VIAL IM PRN (07:00)
[2022-01-25] MEDS ORDERED: CARBOHYDRATES FOR HYPOGLYCEMIA PO PRN (07:00)
[2022-01-25] MEDS ORDERED: DEXTROSE 50% 50 ML SYRINGE IV PRN (07:00)
[2022-01-25] MEDS ORDERED: GLUCOSE 10 TAB/TUBE PO PRN (07:00)
[2022-01-25] MEDS ORDERED: GLUCOSE 40% GEL 15 GM TUBE PO PRN (07:00)
[2022-01-25] MEDS ORDERED: INSULIN ASPART PER UNIT SC SCH ×2 (07:30→12:00)
[2022-01-25] MEDS ORDERED: METOPROLOL TARTRATE 1 MG/ML VIAL IV ONE (07:37)
[2022-01-25] MEDS ORDERED: METOPROLOL TARTRATE 1 MG/ML VIAL IV STA (07:37)
[2022-01-25] MEDS ORDERED: Nursing to Pharmacy Communication SCH ×2 (08:00→09:00)
--- NOTE | 2022-01-25 08:09 | XRay Report ---
XR chest 1V portable HISTORY: palpitations COMPARISON: Chest 01/29/2019. FINDINGS: Mild chronic elevation of the right hemidiaphragm again noted. No focal lung consolidations to suggest a pneumonia. No evidence for pulmonary edema. No pleural effusions. No pneumothorax. The heart remains top normal in size. IMPRESSION: No significant change compared to the prior study. No acute process. ACT 112: Negative or not required by law. Electronically signed by: Linwood Knox M.D. 01/25/2022 8:07 AM
[2022-01-25 08:11] LABS: Basophils # (auto) 0.02 K/uL (0-0.2); Basophils % (auto) 0.2 %; Eosinophils # (auto) 0.04 K/uL (0-0.50); Eosinophils % (auto) 0.5 %; Hematocrit (blood only) 41.1 % (34.1-44.9); Hemoglobin 13.3 g/dl (12.0-16.0); Immature Granulocytes # (auto) 0.04 K/uL (0.00-0.02); Immature Granulocytes % (auto) 0.5 %; Lymphocytes # (auto) 1.64 K/uL (1.2-3.4); Lymphocytes % (auto) 18.9 %; Mean Corpuscular Hemoglobin 23.5 pg (25.0-34.0); Mean Corpuscular Hgb Conc 32.4 g/dL (32.0-36.0); Mean Corpuscular Volume 72.7 fL (80.0-100.0); Mean Platelet Volume 11.3 fL (9.4-12.3); Monocytes # (auto) 0.51 K/uL (0.24-0.82); Monocytes % (auto) 5.9 %; Neutrophils # (auto) 6.42 K/uL (1.4-6.5); Platelet Count 215 K/uL (130-400); RDW Coefficient of Variation 14.3 % (11.5-14.5); RDW Standard Deviation 37.2 fL (36.4-46.3); Red Blood Count 5.65 M/uL (3.93-5.22); White Blood Count 8.67 K/ul (4.8-10.8)
[2022-01-25 08:35] LABS: Troponin I High Sensitivity 8.2 pg/ml (0-14)
[2022-01-25 08:36] LABS: BUN Creatinine Ratio 11.1 (10-20); Calcium 8.8 mg/dl (8.5-10.1); Creatinine Clr Calc Pharmacy 181.9 ml/min; Est GFR (African American) 141.7 ml/min; Est GFR (Non-African American) 122.3 ml/min; Magnesium 1.7 mg/dl (1.7-2.4); Potassium 3.6 mmol/L (3.5-5.1)
--- NOTE | 2022-01-25 08:58 | Emergency Department Note ---
Impression & Plan Paroxysmal ventricular tachycardia, Hypomagnesemia, Hyperglycemia due to diabetes mellitus Admit to the [facility] ED Provider Note NAME: CONNIE VALDERRAMA AGE: 36 SEX: F ARRIVES VIA: Ambulance INFORMANT: Patient ED PROVIDER(S): Laura Maciel DO CHIEF COMPLAINT: Palpitations and shortness of breath PLAN: Disposition: Admit to the [facility] Condition: Guarded MEDICAL DECISION MAKING: This is a 36-year-old female patient who presents to the emergency department with heart racing and shortness of breath. The patient states that she feels shaky. The symptoms seem to have started after taking some Benadryl and Claritin for which she took for seasonal allergies. On My initial evaluation of the patient, she was having frequent episodes of PVCs and then runs of V. tach. A second IV lock was initiated and the patient was removed to room A1. Patient was given a bolus of IV amiodarone which slowed the dysrhythmia. The patient was noted to be hypomagnesemic. She was started on IV magnesium. The patient does admit that she is fairly noncompliant with her usual medications. Patient was also somewhat anxious and was given IV Ativan. The patient remained hemodynamically stable. [facility] will evaluate for further management. Triage Nursing notes reviewed and agree with them Prior medical records reviewed Vital Signs: reviewed and remarkable for hypertension and tachycardia Differential diagnosis: Cardiac ischemia, electrolyte abnormality, cardiac dysrhythmia ER treatment provided: IV amiodarone bolus IV amiodarone drip The Ativan IV magnesium IV normal saline Diagnostics interpreted by me: ECG: Tachycardia at a rate of 124 with frequent PVCs. There is no ST segment elevation or signs of ischemia. Cardiac Monitoring: Sinus tachycardia at 116 with PVCs intermittent runs of V. tach Laboratory studies: See below Imaging studies: As per my interpretation Chest x-ray: No Acute pulmonary infiltrates. HPI: 36/F arrives for evaluation of palpitations and shortness of breath. The patient was suffering from some seasonal allergies earlier this evening and took Claritin and Benadryl. After doing so, she developed palpitations and shortness of breath. She was feeling somewhat shaky after doing so. Patient called EMS. Blood sugar was 329. The patient was noted to be somewhat tachycardic and hyper tensive for them. Patient has a history of diabetes and hypertension. ROS: A total of 10 systems reviewed and were otherwise negative. PAST MEDICAL HISTORY:See Below PAST SURGICAL HISTORY:See Below FAMILY HISTORY:See Below SOCIAL HISTORY:See Below HOME MEDICATIONS:See list ALLERGIES:See list VITALS:See Below PHYSICAL EXAMINATION: HEENT: Head - normocephalic and atraumatic Pupils are equal, round, and reactive to light. Extraocular eye muscles are intact, and sclera are anicteric. Nose - moist nasal mucosa without discharge. Mouth - moist buccal mucosa. Oropharynx is nonerythematous and there is no tonsillar exudate or edema noted. Neck: Supple; no JVD, nuchal rigidity, cervical lymphadenopathy, or auscultated bruits. Heart: Tachycardic rate and irregular. There is a normal S1 and S2 with no murmurs, clicks, or gallops appreciated. Lungs: Clear to auscultation bilaterally with no wheezes, rales, or rhonchi. Abdomen: Soft, completely nontender, nondistended, with good bowel sounds. There are no palpable pulsatile masses or hepatosplenomegaly. There is no guarding, rigidity, or rebound noted. Extremities: No evidence of cyanosis, clubbing, or edema. There are easily palpable peripheral pulses. Skin: warm and dry with good turgor and no rashes. ED COURSE: Times/Reassessments: 0105 waited in room C9. A complete history and physical was performed. An IV lock was initiated and labs were drawn as above. A twelve-lead EKG was obtained. An order was placed for continuous cardiac monitoring. The patient was in a sinus tachycardia 116 with frequent PVCs, couplets, triplets and runs of V. tach. The patient was started on a normal saline drip. A second IV lock was initiated. The defibrillator pads were put in place. The patient was moved to room A1. The patient was given a bolus of IV amiodarone. A dose of IV Ativan. The patient was started on an amiodarone drip. Patient was started on an IV magnesium drip. [facility] I have personally spent greater than 70 minutes of critical care time in the direct management of this patient. This includes bedside care, interpretation of diagnostic studies, and testing, discussion with consultants, patient, and family members, and other required patient management activities. This 70 minutes is in excess of all separately billable procedures. Laura Maciel DO Past Med/Surg History Medical History (Updated 01/25/22 @ 14:11 by Bret Maher MD) Acquired claw toe of left foot Acquired claw toe of right foot Chronic back pain since 2011 Diabetic neuropathy left foot History of PCOS since 2012 HTN (hypertension) for past 6 years; has been on Lisinopril in past but now allergic; also on Atenolol but not on meds currently due to Hx of migraines since age 11 Pain of left foot Type 2 diabetes mellitus for past 8 years; using Insulin pump for past 2 years Type 2 diabetes mellitus with diabetic neuropathy Surgical History History of left salpingo-oophorectomy 2016 Hx of appendectomy age 13 Family History Mother Diabetes Hypertension Stroke Grandmother No problems noted. Father Diabetes Grandmother (Maternal) Diabetes Hypertension Stroke Social History Smoking Status: Former smoker Tobacco Type: Cigarettes Second Hand Exposure: Yes (boyfriend lives with her, smokes marijuana); Hx Alcohol Use: No Hx Substance Use: No Preferred Language: Eritrean Communication Ability: Effective Dining Car Hop Required: No Beliefs That Will Affect Care: None marital status: Single Current Living Situation: Family and Significant Other Other Information That Helps Us Care for You: No Feels Safe at Home: Yes Safety Concerns: Feels Safe At This Time Assistive Devices: None Allergies Allergies Allergy/AdvReac Type Severity Reaction Status Date / Time banana Allergy Intermediate swelling Verified 01/25/22 01:58 lisinopril AdvReac Intermediate COUGH Verified 01/25/22 01:58 peach AdvReac Intermediate swelling Verified 01/25/22 01:58 pineapple AdvReac Intermediate swelling Verified 01/25/22 01:58 fruit Allergy Severe Swelling Uncoded 01/25/22 01:59 of Lip/Tongue/Throat Home Meds Home Medications Medication Instructions Recorded Confirmed aspirin 81 mg tablet,delayed 81 mg PO QAM 11/18/18 01/25/22 release ferrous sulfate 325 mg (65 mg 325 mg PO QAM 11/18/18 01/25/22 iron) tablet metformin 1,000 mg tablet 1,000 mg PO QAM 11/18/18 01/25/22 metformin 1,000 mg tablet 1,500 mg PO QPM 11/18/18 01/25/22 gabapentin 300 mg capsule 300 mg PO TID 01/29/19 01/25/22 insulin aspart U-100 100 unit/mL 0 unit continuous subcutaneous 01/29/19 01/25/22 subcutaneous solution (Novolog infusion CONTINOUS U-100 Insulin aspart) albuterol sulfate 90 mcg/actuation 1 puff inhalation Q4H PRN 02/17/21 01/25/22 aerosol inhaler (Ventolin HFA) Shortness Of Breath amlodipine 10 mg tablet (Norvasc) 10 mg PO QAM 02/17/21 01/25/22 bupropion HCl 300 mg 24 hr tablet, 300 mg PO QAM 02/17/21 01/25/22 extended release (Wellbutrin XL) carvedilol 6.25 mg tablet (Coreg) 6.25 mg PO BID 02/17/21 01/25/22 cetirizine 10 mg tablet (Zyrtec) 10 mg PO QAM 02/17/21 01/25/22 clotrimazole-betamethasone 1 1 applic topical BID PRN . 02/17/21 01/25/22 %-0.05 % topical cream multivitamin (Daily Multi-Vitamin 1 tab PO QAM 02/17/21 01/25/22 tablet) valsartan 320 mg tablet (Diovan) 320 mg PO QAM 02/17/21 01/25/22 Previous Rx's Medication Instructions Recorded ondansetron HCl 4 mg tablet 4 mg PO Q6H PRN nausea and 02/17/21 (Zofran) vomiting #12 tabs Results & Data (ED) Vital Signs Vital Signs - 24 hr 01/25/22 00:52 01/25/22 00:52 01/25/22 00:52 Pulse Rate 129 H Pulse Rate from SpO2 Sensor Respiratory Rate 24 Respiratory Effort / Characteristics Short of Breath SOB on Exertion Respiratory Depth Normal Blood Pressure 193/129 H Blood Pressure [Right Arm] Blood Pressure Mean 150 Blood Pressure Mean [Right Arm] Pulse Oximetry 98 98 Oxygen Delivery Method Room Air Room Air Sepsis Recent Fever Within 48 Hours No Sepsis New/Unexplained Change in Mental Status N/A Sepsis Action Taken by Nursing Physician Notified 01/25/22 01:02 01/25/22 01:10 01/25/22 01:24 Pulse Rate 125 H 144 H 139 H Pulse Rate from SpO2 Sensor 130 H 148 H 137 H Respiratory Rate 24 22 Respiratory Effort / Characteristics Respiratory Depth Blood Pressure Blood Pressure [Right Arm] Blood Pressure Mean Blood Pressure Mean [Right Arm] Pulse Oximetry 96 100 97 Oxygen Delivery Method Sepsis Recent Fever Within 48 Hours Sepsis New/Unexplained Change in Mental Status Sepsis Action Taken by Nursing 01/25/22 01:27 01/25/22 01:27 01/25/22 01:30 Pulse Rate 130 H 132 H Pulse Rate from SpO2 Sensor 125 H 131 H Respiratory Rate 30 H 35 H Respiratory Effort / Characteristics Respiratory Depth Blood Pressure 203/125 H Blood Pressure [Right Arm] Blood Pressure Mean 151 Blood Pressure Mean [Right Arm] Pulse Oximetry 95 96 Oxygen Delivery Method Sepsis Recent Fever Within 48 Hours Sepsis New/Unexplained Change in Mental Status Sepsis Action Taken by Nursing 01/25/22 01:31 01/25/22 01:31 01/25/22 01:40 Pulse Rate 131 H 126 H Pulse Rate from SpO2 Sensor 131 H 127 H Respiratory Rate 31 H 32 H Respiratory Effort / Characteristics Respiratory Depth Blood Pressure 204/108 H Blood Pressure [Right Arm] Blood Pressure Mean 140 Blood Pressure Mean [Right Arm] Pulse Oximetry 97 97 Oxygen Delivery Method Sepsis Recent Fever Within 48 Hours Sepsis New/Unexplained Change in Mental Status Sepsis Action Taken by Nursing 01/25/22 01:46 01/25/22 01:46 01/25/22 01:46 Pulse Rate 126 H Pulse Rate from SpO2 Sensor 127 H Respiratory Rate 33 H Respiratory Effort / Characteristics Respiratory Depth Blood Pressure 189/111 H Blood Pressure [Right Arm] 189/111 H Blood Pressure Mean 137 Blood Pressure Mean [Right Arm] 137 Pulse Oximetry 96 Oxygen Delivery Method Sepsis Recent Fever Within 48 Hours Sepsis New/Unexplained Change in Mental Status Sepsis Action Taken by Nursing 01/25/22 02:00 01/25/22 02:01 01/25/22 02:01 Pulse Rate 130 H 129 H Pulse Rate from SpO2 Sensor 129 H 129 H Respiratory Rate 35 H 26 H Respiratory Effort / Characteristics Respiratory Depth Blood Pressure 196/123 H Blood Pressure [Right Arm] Blood Pressure Mean 147 Blood Pressure Mean [Right Arm] Pulse Oximetry 96 97 Oxygen Delivery Method Sepsis Recent Fever Within 48 Hours Sepsis New/Unexplained Change in Mental Status Sepsis Action Taken by Nursing 01/25/22 02:30 01/25/22 02:31 01/25/22 02:31 Pulse Rate 131 H 133 H Pulse Rate from SpO2 Sensor 129 H 127 H Respiratory Rate 26 H 30 H Respiratory Effort / Characteristics Respiratory Depth Blood Pressure 172/121 H Blood Pressure [Right Arm] Blood Pressure Mean 138 Blood Pressure Mean [Right Arm] Pulse Oximetry 95 96 Oxygen Delivery Method Sepsis Recent Fever Within 48 Hours Sepsis New/Unexplained Change in Mental Status Sepsis Action Taken by Nursing 01/25/22 02:45 01/25/22 02:45 01/25/22 02:50 Pulse Rate 129 H 129 H Pulse Rate from SpO2 Sensor 129 H 128 H Respiratory Rate 31 H 35 H Respiratory Effort / Characteristics Respiratory Depth Blood Pressure 194/125 H Blood Pressure [Right Arm] Blood Pressure Mean 148 Blood Pressure Mean [Right Arm] Pulse Oximetry 96 95 Oxygen Delivery Method Sepsis Recent Fever Within 48 Hours Sepsis New/Unexplained Change in Mental Status Sepsis Action Taken by Nursing 01/25/22 03:00 01/25/22 03:02 01/25/22 03:02 Pulse Rate 126 H 133 H Pulse Rate from SpO2 Sensor 126 H 134 H Respiratory Rate 32 H 28 H Respiratory Effort / Characteristics Respiratory Depth Blood Pressure 238/113 H Blood Pressure [Right Arm] Blood Pressure Mean 154 Blood Pressure Mean [Right Arm] Pulse Oximetry 95 98 Oxygen Delivery Method Sepsis Recent Fever Within 48 Hours Sepsis New/Unexplained Change in Mental Status Sepsis Action Taken by Nursing Laboratory Data Result diagrams: 01/25/22 07:59 01/25/22 07:59 Lab Results 01/25/22 01/25/22 01/25/22 Range/Units 01:03 01:20 01:20 WBC 8.92 (4.8-10.8) K/ul RBC 5.73 H (3.93-5.22) M/uL Hgb 13.6 (12.0-16.0) g/dl Hct 42.4 (34.1-44.9) % MCV 74.0 L (80.0-100.0) fL MCH 23.7 L (25.0-34.0) pg MCHC 32.1 (32.0-36.0) g/dL RDW Std Deviation 37.7 (36.4-46.3) fL RDW Coeff of Neftaly 14.2 (11.5-14.5) % Plt Count 220 (130-400) K/uL MPV 12.3 (9.4-12.3) fL Immature Gran % (Auto) 0.3 % Neut % (Auto) 66.8 % Lymph % (Auto) 25.6 % Henry % (Auto) 5.5 % Eos % (Auto) 1.5 % Baso % (Auto) 0.3 % Neut # (Auto) 5.96 (1.4-6.5) K/uL Lymph # (Auto) 2.28 (1.2-3.4) K/uL Henry # (Auto) 0.49 (0.24-0.82) K/uL Eos # (Auto) 0.13 (0-0.50) K/uL Baso # (Auto) 0.03 (0-0.2) K/uL Immature Gran # (Auto) 0.03 H (0.00-0.02) K/uL Sodium 134 L (136-145) mmol/L Potassium 3.3 L (3.5-5.1) mmol/L Chloride 98 (98-107) mmol/L Carbon Dioxide 26 (21-32) mmol/L Anion Gap 10 (3-11) BUN 8 (6-23) mg/dl Creatinine 0.68 (0.6-1.2) mg/dl Est Cr Clr Drug Dosing Not Reportable Est GFR ( Amer) 131.3 ml/min Est GFR (Non-Af Amer) 113.3 ml/min BUN/Creatinine Ratio 11.8 (10-20) Glucose 390 H* (70-99(Fasting)) mg/dl POC Glucose 338 H* (70-99) mg/dl Calcium 9.1 (8.5-10.1) mg/dl Magnesium 1.5 L (1.7-2.4) mg/dl Total Bilirubin 0.4 (0.2-1.0) mg/dl AST 26 (13-39) U/L ALT 22 (7-52) U/L Alkaline Phosphatase 105 H (34-104) U/L Troponin I High Sens 7.6 (0-14) pg/ml Total Protein 8.0 (6.0-8.3) gm/dl Albumin 3.9 (3.4-5.0) gm/dl Globulin 4.1 H (2.5-4.0) gm/dl Albumin/Globulin Ratio 1.0 (0.9-2) TSH (0.300-4.500) uIu/ml HCG, Qual (Negative) SARS-CoV-2, RNA, NAAT (NEGATIVE) 01/25/22 01/25/22 01/25/22 Range/Units 01:20 01:20 01:43 WBC (4.8-10.8) K/ul RBC (3.93-5.22) M/uL Hgb (12.0-16.0) g/dl Hct (34.1-44.9) % MCV (80.0-100.0) fL MCH (25.0-34.0) pg MCHC (32.0-36.0) g/dL RDW Std Deviation (36.4-46.3) fL RDW Coeff of Neftaly (11.5-14.5) % Plt Count (130-400) K/uL MPV (9.4-12.3) fL Immature Gran % (Auto) % Neut % (Auto) % Lymph % (Auto) % Henry % (Auto) % Eos % (Auto) % Baso % (Auto) % Neut # (Auto) (1.4-6.5) K/uL Lymph # (Auto) (1.2-3.4) K/uL Henry # (Auto) (0.24-0.82) K/uL Eos # (Auto) (0-0.50) K/uL Baso # (Auto) (0-0.2) K/uL Immature Gran # (Auto) (0.00-0.02) K/uL Sodium (136-145) mmol/L Potassium (3.5-5.1) mmol/L Chloride (98-107) mmol/L Carbon Dioxide (21-32) mmol/L Anion Gap (3-11) BUN (6-23) mg/dl Creatinine (0.6-1.2) mg/dl Est Cr Clr Drug Dosing Est GFR ( Amer) ml/min Est GFR (Non-Af Amer) ml/min BUN/Creatinine Ratio (10-20) Glucose (70-99(Fasting)) mg/dl POC Glucose (70-99) mg/dl Calcium (8.5-10.1) mg/dl Magnesium (1.7-2.4) mg/dl Total Bilirubin (0.2-1.0) mg/dl AST (13-39) U/L ALT (7-52) U/L Alkaline Phosphatase (34-104) U/L Troponin I High Sens (0-14) pg/ml Total Protein (6.0-8.3) gm/dl Albumin (3.4-5.0) gm/dl Globulin (2.5-4.0) gm/dl Albumin/Globulin Ratio (0.9-2) TSH 2.600 (0.300-4.500) uIu/ml HCG, Qual Negative (Negative) SARS-CoV-2, RNA, NAAT NEGATIVE (NEGATIVE) Administered Medications Amlodipine Besylate (Amlodipine Besylate 5 Mg Tab) 10 mg PO [facility] Stop: 02/24/22 08:59 Last Admin: 01/25/22 09:53 Dose: 10 mg Documented By: LOULOU Aspirin (Aspirin 81 Mg Ectab) 81 mg PO [facility] Stop: 02/24/22 08:59 Last Admin: 01/25/22 09:53 Dose: 81 mg Documented By: LOULOU Bupropion HCl (Bupropion Xl 300 Mg Tabcr) 300 mg PO [facility] Stop: 02/24/22 08:59 Last Admin: 01/25/22 09:54 Dose: 300 mg Documented By: LOULOU Carvedilol (Carvedilol 12.5 Mg Tab) 12.5 mg PO BID [facility] Stop: 02/24/22 08:59 Last Admin: 01/25/22 10:34 Dose: 12.5 mg Documented By: LOULOU Ferrous Sulfate (Ferrous Sulfate 325 Mg Tab) 325 mg PO QAM [facility] Stop: 02/24/22 08:59 Last Admin: 01/25/22 09:54 Dose: 325 mg Documented By: LOULOU Gabapentin (Gabapentin 300 Mg Cap) 300 mg PO TID [facility] Stop: 02/24/22 08:59 Last Admin: 01/25/22 15:06 Dose: 300 mg Documented By: Admin: 01/25/22 09:53 Dose: 300 mg Documented By: LOULOU Sodium Chloride (Nss 1000ml) 1,000 mls @ 75 mls/hr IV .[id number] [facility] Stop: 01/25/22 19:00 Last Admin: 01/25/22 06:55 Dose: 75 mls/hr Documented By: MARTINA Amiodarone HCl/Dextrose (Nexterone / D5w) 360 mg in 200 mls @ 16.667 mls/hr IV .Q12H [facility] Stop: 02/24/22 12:14 Last Admin: 01/25/22 11:36 Dose: 0.5 mg/min, 16.7 mls/hr Documented By: LOULOU Co-signed By: LISANDRO Insulin Aspart (Insulin Aspart Per Unit) 0 units SC ACHS [facility] Stop: 02/24/22 09:14 Last Admin: 01/25/22 12:34 Dose: 5 units Documented By: LOULOU Co-signed By: BOBY Admin: 01/25/22 09:40 Dose: 5 units Documented By: LOULOU Co-signed By: SARAH Multivitamins (Multivitamin Tab) 1 tab PO QAM [facility] Stop: 02/24/22 08:59 Last Admin: 01/25/22 09:54 Dose: 1 tab Documented By: LOULOU Valsartan (Valsartan 80 Mg Tab) 320 mg PO QAM [facility] Stop: 02/24/22 08:59 Last Admin: 01/25/22 09:54 Dose: 320 mg Documented By: LOULOU Discontinued Medications Amiodarone HCl/Dextrose (Amiodarone 360mg / 200ml D5w) Confirm Administered Dose 360 mg IV .STK-MED ONE Stop: 01/25/22 01:24 Last Admin: 01/25/22 02:23 Dose: 360 mg Documented By: TERI Co-signed By: BRUCE Amiodarone HCl/Dextrose (Amiodarone 150mg / 100ml D5w) Confirm Administered Dose 150 mg IV .STK-MED ONE Stop: 01/25/22 01:24 Last Admin: 01/25/22 01:35 Dose: 150 mg Documented By: TERI Co-signed By: ZACK Sodium Chloride (Nss) 500 mls @ 999 mls/hr IV .Q31M ONE Stop: 01/25/22 03:17 Last Infusion: 01/25/22 04:20 Dose: 0 mls/hr Documented By: Admin: 01/25/22 02:56 Dose: 999 mls/hr Documented By: TERI Magnesium Sulfate/Dextrose (Magnesium Sulfate / D5w) 1 gm in 100 mls @ 100 mls/hr IV NOW STA Stop: 01/25/22 03:47 Last Infusion: 01/25/22 04:20 Dose: 0 mls/hr Documented By: Admin: 01/25/22 02:56 Dose: 100 mls/hr Documented By: TERI Amiodarone HCl/Dextrose (Nexterone / D5w) 150 mg in 100 mls @ 600 mls/hr IV NOW STA Stop: 01/25/22 06:19 Last Admin: 01/25/22 07:51 Dose: Not Given Documented By: LOULOU Amiodarone HCl/Dextrose (Nexterone / D5w) 360 mg in 200 mls @ 33.333 mls/hr IV ONE ONE Stop: 01/25/22 12:19 Last Infusion: 01/25/22 12:35 Dose: 0 mg/min, 0 mls/hr Documented By: LOULOU Co-signed By: BOBY Admin: 01/25/22 06:29 Dose: 1 mg/min, 33.3 mls/hr Documented By: MARTINA Co-signed By: RAMONA Insulin Aspart (Insulin Aspart Per Unit) 0 units SC ACHS [facility] Stop: 02/24/22 07:29 Last Admin: 01/25/22 10:28 Dose: Not Given Documented By: LOULOU Lorazepam (Lorazepam 2 Mg/1 Ml Vial) 1 mg IV NOW STA; Protocol Stop: 01/25/22 01:32 Last Admin: 01/25/22 01:35 Dose: 1 mg Documented By: TERI Metoprolol Tartrate (Metoprolol Tartrate 1 Mg/Ml Vial) Confirm Administered Dose 5 mg IV .STK-MED ONE Stop: 01/25/22 07:38 Last Admin: 01/25/22 07:50 Dose: Not Given Documented By: LOULOU Metoprolol Tartrate (Metoprolol Tartrate 1 Mg/Ml Vial) 5 mg IV NOW STA Stop: 01/25/22 07:38 Last Admin: 01/25/22 07:49 Dose: 5 mg Documented By: LOULOU Potassium Chloride (Potassium Chloride Crtab 20 Meq Tabcr) 40 meq PO NOW STA Stop: 01/25/22 03:16 Last Admin: 01/25/22 03:34 Dose: 40 meq Documented By: TERI Potassium Chloride (Potassium Chloride Crtab 20 Meq Tabcr) 40 meq PO NOW STA Stop: 01/25/22 09:00 Last Admin: 01/25/22 09:51 Dose: 40 meq Documented By: LOULOU Imaging Data Radiologist's Impression: Chest X-Ray 01/25/22 01:25 XR chest 1V portable HISTORY: palpitations COMPARISON: Chest 01/29/2019. FINDINGS: Mild chronic elevation of the right hemidiaphragm again noted. No focal lung consolidations to suggest a pneumonia. No evidence for pulmonary edema. No pleural effusions. No pneumothorax. The heart remains top normal in size. IMPRESSION: No significant change compared to the prior study. No acute process. ACT 112: Negative or not required by law. Electronically signed by: Linwood Knox M.D. 01/25/2022 8:07 AM Discharge Plan Visit Data Chief Complaint: Cardiac Assessment Stated Complaint: CARDIAC ASSESSMENT ED Provider: Laura Maciel Discharge Problem: Paroxysmal ventricular tachycardia, Hypomagnesemia, Hyperglycemia due to diabetes mellitus Patient Disposition: Admitted As Inpatient Discharge Instructions Interventions: ED Discharge Assessment Last Done: 01/25/22 05:30
[2022-01-25] MEDS ORDERED: carvediloL 6.25 MG TAB PO SCH (09:00)
[2022-01-25] MEDS: INSULIN ASPART PER UNIT SC SCH ×4 (09:40→21:52)
[2022-01-25] MEDS: GABAPENTIN 300 MG CAP PO SCH ×3 (09:53→21:37)
[2022-01-25] MEDS: amLODIPine BESYLATE 5 MG TAB PO SCH (09:53)
[2022-01-25] MEDS: ASPIRIN 81 MG ECTAB PO SCH (09:53)
[2022-01-25] MEDS: VALSARTAN 80 MG TAB PO SCH (09:54)
[2022-01-25] MEDS: MULTIVITAMIN TAB PO SCH (09:54)
[2022-01-25] MEDS: FERROUS SULFATE 325 MG TAB PO SCH (09:54)
[2022-01-25] MEDS: buPROPion XL 300 MG TABCR PO SCH (09:54)
[2022-01-25] MEDS: carvediloL 12.5 MG TAB PO SCH ×2 (10:34→21:37)
--- NOTE | 2022-01-25 10:38 | Cardiology Consultation ---
Date of Consultation January 25, 2022 Assessment & Plan (1) RVOT ventricular tachycardia: (2) Hypomagnesemia: (3) Hypokalemia: (4) Hypertensive urgency: (5) Hypertensive heart disease: (6) Noncompliance: Plan 36-year-old female presents with palpitations and sustained ventricular tachycardia likely incited by excessive antihistamine intake (Benadryl plus Claritin) and noncompliance with beta-marciano therapy. Longstanding history of frequent ventricular ectopy. ECG consistent with right ventricular outflow tract ventricular tachycardia. Continue IV amiodarone infusion. Titrate carvedilol to 12.5 mg twice daily. Restart other antihypertensive medications as noted above. Repeat resting 2D transthoracic echocardiogram in sinus rhythm. Further ischemic evaluation pending clinical course due to risk factors and evidence of hypertensive heart disease. History of Present Illness Reason for Consultation: Sustained ventricular tachycardia Requesting Physician: Dr. Sarmiento Attending Physician: Bret Maher MD History of Present Illness 36-year-old female presented to the emergency department with palpitations. ECG initially demonstrating sinus tachycardia with frequent PVCs. She developed sustained ventricular tachycardia at a rate of 135 bpm. Ventricular tachycardia persistent for nearly 1 hour this morning. Reports associated palpitations. No dyspnea, chest discomfort, or syncope. Intermittent lightheadedness reported. Admits to taking Claritin as well as Benadryl at approximately 9 PM 01/24/2022.Palpitations ensued approximately 1 hour after medications. Currently patient is back in sinus rhythm with frequent PVCs and occasional ventricular triplets. Denies chest discomfort or unusual shortness of breath. Admits to noncompliance with all medications for several weeks. Blood pressure markedly elevated on admission. A.m. medications pending. Allergies Allergy/AdvReac Type Severity Reaction Status Date / Time banana Allergy Intermediate swelling Verified 01/25/22 01:58 lisinopril AdvReac Intermediate COUGH Verified 01/25/22 01:58 peach AdvReac Intermediate swelling Verified 01/25/22 01:58 pineapple AdvReac Intermediate swelling Verified 01/25/22 01:58 fruit Allergy Severe Swelling Uncoded 01/25/22 01:59 of Lip/Tongue/Throat Home Medications Medication Instructions Recorded Confirmed Type aspirin 81 mg tablet,delayed 81 mg PO QAM 11/18/18 01/25/22 History release ferrous sulfate 325 mg (65 mg 325 mg PO QAM 11/18/18 01/25/22 History iron) tablet metformin 1,000 mg tablet 1,000 mg PO QAM 11/18/18 01/25/22 History metformin 1,000 mg tablet 1,500 mg PO QPM 11/18/18 01/25/22 History gabapentin 300 mg capsule 300 mg PO TID 01/29/19 01/25/22 History insulin aspart U-100 100 unit/mL 0 unit continuous subcutaneous 01/29/19 01/25/22 History subcutaneous solution (Novolog infusion CONTINOUS U-100 Insulin aspart) albuterol sulfate 90 mcg/actuation 1 puff inhalation Q4H PRN 02/17/21 01/25/22 History aerosol inhaler (Ventolin HFA) Shortness Of Breath amlodipine 10 mg tablet (Norvasc) 10 mg PO QAM 02/17/21 01/25/22 History bupropion HCl 300 mg 24 hr tablet, 300 mg PO QAM 02/17/21 01/25/22 History extended release (Wellbutrin XL) carvedilol 6.25 mg tablet (Coreg) 6.25 mg PO BID 02/17/21 01/25/22 History cetirizine 10 mg tablet (Zyrtec) 10 mg PO QAM 02/17/21 01/25/22 History clotrimazole-betamethasone 1 1 applic topical BID PRN . 02/17/21 01/25/22 History %-0.05 % topical cream multivitamin (Daily Multi-Vitamin 1 tab PO QAM 02/17/21 01/25/22 History tablet) ondansetron HCl 4 mg tablet 4 mg PO Q6H PRN nausea and 02/17/21 01/25/22 Rx (Zofran) vomiting #12 tabs valsartan 320 mg tablet (Diovan) 320 mg PO QAM 02/17/21 01/25/22 History Patient History Medical History (Updated 01/25/22 @ 14:11 by Bret Maher MD) Acquired claw toe of left foot Acquired claw toe of right foot Chronic back pain since 2011 Diabetic neuropathy left foot History of PCOS since 2012 HTN (hypertension) for past 6 years; has been on Lisinopril in past but now allergic; also on Atenolol but not on meds currently due to Hx of migraines since age 11 Pain of left foot Type 2 diabetes mellitus for past 8 years; using Insulin pump for past 2 years Type 2 diabetes mellitus with diabetic neuropathy Surgical History History of left salpingo-oophorectomy 2016 Hx of appendectomy age 13 Family History Mother Diabetes Hypertension Stroke Grandmother No problems noted. Father Diabetes Grandmother (Maternal) Diabetes Hypertension Stroke Social History Smoking Status: Former smoker Tobacco Type: Cigarettes Second Hand Exposure: Yes (boyfriend lives with her, smokes marijuana); Hx Alcohol Use: No Hx Substance Use: No Preferred Language: Guyanese Communication Ability: Effective Seal Extrusion Operator Required: No Beliefs That Will Affect Care: None marital status: Single Current Living Situation: Family and Significant Other Other Information That Helps Us Care for You: No Feels Safe at Home: Yes Safety Concerns: Feels Safe At This Time Assistive Devices: None Review of Systems Review of Systems: All systems reviewed & are unremarkable except as noted in Subjective Physical Exam Constitutional: well developed and well nourished; no acute distress Respiratory: normal respiratory effort; no respiratory distress Auscultation: no crackles, no rales, no rhonchi and no wheezes Cardiovascular: Rate/Rhythm: regular rate and regular rhythm Heart Sounds: normal S1 and normal S2; no murmur Vessels: radial pulses present; no JVD and no carotid bruit Extremities: no edema Gastrointestinal (Abdomen): Inspection/Auscultation: abdomen normal to inspection; abdomen not distended Percussion/Palpation: abdomen soft; abdomen nontender, no guarding and abdomen not rigid Neurologic: CN's II-XI intact bilaterally and moves all extremities; no focal motor deficits Psychiatric: A+Ox3, euthymic affect Results & [facility] ([facility]) Vital Signs (Past 12 Hours) Vital Signs Temp Pulse Pulse Resp BP BP BP 01/25/22 08:39 37.1 C 101 H 20 167/108 H 01/25/22 07:49 130 H 01/25/22 05:36 37.0 C 119 H 24 184/103 H 01/25/22 04:49 119 H 30 H 185/133 H 01/25/22 03:02 238/113 H 01/25/22 03:02 133 H 28 H 01/25/22 03:00 126 H 32 H 01/25/22 02:50 129 H 35 H 01/25/22 02:45 194/125 H 01/25/22 02:45 129 H 31 H 01/25/22 02:31 133 H 30 H 01/25/22 02:31 172/121 H 01/25/22 02:30 131 H 26 H 01/25/22 02:01 196/123 H 01/25/22 02:01 129 H 26 H 01/25/22 02:00 130 H 35 H 01/25/22 01:46 126 H 33 H 01/25/22 01:46 189/111 H 01/25/22 01:46 189/111 H 01/25/22 01:40 126 H 32 H 01/25/22 01:31 131 H 31 H 01/25/22 01:31 204/108 H 01/25/22 01:30 132 H 35 H 01/25/22 01:27 203/125 H 01/25/22 01:27 130 H 30 H 01/25/22 01:24 139 H 22 01/25/22 01:10 144 H 01/25/22 01:02 125 H 24 01/25/22 00:52 01/25/22 00:52 129 H 24 193/129 H Pulse Ox O2 Del Method 01/25/22 08:39 97 Room Air 01/25/22 07:49 01/25/22 05:36 97 Room Air 01/25/22 04:49 96 Room Air 01/25/22 03:02 01/25/22 03:02 98 01/25/22 03:00 95 01/25/22 02:50 95 01/25/22 02:45 01/25/22 02:45 96 01/25/22 02:31 96 01/25/22 02:31 01/25/22 02:30 95 01/25/22 02:01 01/25/22 02:01 97 01/25/22 02:00 96 01/25/22 01:46 96 01/25/22 01:46 01/25/22 01:46 01/25/22 01:40 97 01/25/22 01:31 97 01/25/22 01:31 01/25/22 01:30 96 01/25/22 01:27 01/25/22 01:27 95 01/25/22 01:24 97 01/25/22 01:10 100 01/25/22 01:02 96 01/25/22 00:52 98 Room Air 01/25/22 00:52 98 Room Air
[2022-01-25] MEDS: AMIODARONE / D5W 360 MG/200 ML BAG IV SCH ×2 (11:36→16:18)
[2022-01-25 12:58] LABS: Estimated Average Glucose 289 mg/dl; Hemoglobin A1C 11.7 % (4.5-5.6)
--- NOTE | 2022-01-25 13:55 | Electrocardiogram Report ---
Test Reason : Blood Pressure : / mmHG Vent. Rate : 124 BPM Atrial Rate : 124 BPM P-R Int : 142 ms QRS Dur : 070 ms QT Int : 330 ms P-R-T Axes : 055 023 034 degrees QTc Int : 474 ms Sinus tachycardia with frequent Premature ventricular complexes and Fusion complexes Nonspecific T wave abnormality Abnormal ECG When compared with ECG of 05-JUN-2015 14:52, Fusion complexes are now Present Premature ventricular complexes are now Present Vent. rate has increased BY 48 BPM Nonspecific T wave abnormality now evident in Lateral leads Confirmed by Taco Steiner ([id number]) on 01/25/2022 1:54:54 PM Referred By: REFERRED SELF Confirmed By:Taco Steiner
--- NOTE | 2022-01-25 13:57 | Electrocardiogram Report ---
Test Reason : Blood Pressure : / mmHG Vent. Rate : 118 BPM Atrial Rate : 118 BPM P-R Int : 146 ms QRS Dur : 072 ms QT Int : 340 ms P-R-T Axes : 062 027 050 degrees QTc Int : 476 ms Sinus tachycardia with frequent Premature ventricular complexes Left atrial enlargement Nonspecific T wave abnormality Abnormal ECG When compared with ECG of 25-JAN-2022 01:00, (unconfirmed) Fusion complexes are no longer Present Confirmed by Taco Steiner ([id number]) on 01/25/2022 1:57:22 PM Referred By: REFERRED SELF Confirmed By:Taco Steiner
--- NOTE | 2022-01-25 14:13 | Hospitalist Progress Note ---
Date of Service January 25, 2022 Assessment & Plan (1) RVOT ventricular tachycardia: Plan: - sustained ventricular tachycardia in the setting of excessive antihistamine intake with Benadryl and Claritin for seasonal allergies - accidental - started on amio drip - to continue per cards - increase carvedilol to 12.5mg BID per cardiology - repeat TTE per cardiology - telemetry monitoring (2) Diabetic neuropathy: Plan: - continue gabapentin (3) HTN (hypertension): Plan: - continue home medications (4) Type 2 diabetes mellitus: Plan: - unclear if Type 1 or Type 2, patient claims type 1 and has insulin pump - to use her own insulin pump when brought in - FSG AC+HS until insulin pump - ISS as needed for now - diabetic diet Plan DVT ppx: SCDs for now Code Status: Full Code Dispo: telemetry Bret Maher MD [facility] Medicine Admission and Anticipated Discharge Date Admission Date: January 25, 2022 Subjective Patient with DM1 on home insulin pump, diabetic neuropathy, PCOS, JA, HTN, obesity, GERD, h/o ventricular ectomy presented with shaking and palpitations after taking extra dose of benadryl and claritin, found to be in sustained ventricular tachycardia as result. Cardiology consulted and continued on amiodarone drip, increased carvedilol to 12.5mg BID and pending repeat TTE in sinus rhythm. The patient reports feeling better, denies shaking, palpitations, chest pain, shortness of breath, n/v/d, abdominal pain, LOC, cough, fever or chills, dysuria. 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, no rales, n o rhonchi and no w heezes Cardiovascular:L Rate/Rhythm: regul ar rate and regula r rhythm Heart So unds: normal S1 an d normal S2; no mu rmur Vessels: rad ial pulses present ; no JVD and no ca rotid bruit Extre mities: no edema Gastrointestinal ( Abdomen): Inspection/Auscult ation: abdomen nor mal to inspection; abdomen not diste nded Percussion/P alpation: abdomen soft; abdomen nont aidan, no guarding and abdomen not r igid Neurologic: CN's II-XI intact bilaterally and mo ves all extremitie s; no focal motor deficits Psychiatric: A+Ox3, euthymic af fect Results & Data Results & Data ([facility]) Vital Signs (Past 12 Hours) Vital Signs Temp Pulse Pulse Resp BP BP BP 01/25/22 08:00 109 H 01/25/22 11:35 37.2 C 101 H 16 139/78 01/25/22 08:39 37.1 C 101 H 20 167/108 H 01/25/22 07:49 130 H 01/25/22 05:36 37.0 C 119 H 24 184/103 H 01/25/22 04:49 119 H 30 H 185/133 H 01/25/22 03:02 238/113 H 01/25/22 03:02 133 H 28 H 01/25/22 03:00 126 H 32 H 01/25/22 02:50 129 H 35 H 01/25/22 02:45 194/125 H 01/25/22 02:45 129 H 31 H 01/25/22 02:31 133 H 30 H 01/25/22 02:31 172/121 H 01/25/22 02:30 131 H 26 H Pulse Ox O2 Del Method 01/25/22 08:00 01/25/22 11:35 95 Room Air 01/25/22 08:39 97 Room Air 01/25/22 07:49 01/25/22 05:36 97 Room Air 01/25/22 04:49 96 Room Air 01/25/22 03:02 01/25/22 03:02 98 01/25/22 03:00 95 01/25/22 02:50 95 01/25/22 02:45 01/25/22 02:45 96 01/25/22 02:31 96 01/25/22 02:31 01/25/22 02:30 95 Laboratory Results Short CBC 01/25/22 01/25/22 Range/Units 01:20 07:59 WBC 8.92 8.67 (4.8-10.8) K/ul Hgb 13.6 13.3 (12.0-16.0) g/dl Hct 42.4 41.1 (34.1-44.9) % Plt Count 220 215 (130-400) K/uL BMP 01/25/22 01/25/22 01:20 07:59 Sodium 134 L 137 Potassium 3.3 L 3.6 Chloride 98 103 Carbon Dioxide 26 27 BUN 8 6 Creatinine 0.68 0.54 L Glucose 390 H* 265 H Calcium 9.1 8.8 Liver Function 01/25/22 Range/Units 01:20 Total Bilirubin 0.4 (0.2-1.0) mg/dl AST 26 (13-39) U/L ALT 22 (7-52) U/L Alkaline Phosphatase 105 H (34-104) U/L Albumin 3.9 (3.4-5.0) gm/dl Diagnostic Findings Chest X-Ray 01/25/22 01:25 XR chest 1V portable HISTORY: palpitations COMPARISON: Chest 01/29/2019. FINDINGS: Mild chronic elevation of the right hemidiaphragm again noted. No focal lung consolidations to suggest a pneumonia. No evidence for pulmonary edema. No pleural effusions. No pneumothorax. The heart remains top normal in size. IMPRESSION: No significant change compared to the prior study. No acute process. ACT 112: Negative or not required by law. Electronically signed by: Linwood Knox M.D. 01/25/2022 8:07 AM Medications Administered Current Inpatient Medications Acetaminophen (Acetaminophen 325 Mg Tab) 650 mg PO Q4H PRN PRN Reason: Pain or Fever Stop: 02/24/22 05:40 Amlodipine Besylate (Amlodipine Besylate 5 Mg Tab) 10 mg PO [facility] Stop: 02/24/22 08:59 Last Admin: 01/25/22 09:53 Dose: 10 mg Aspirin (Aspirin 81 Mg Ectab) 81 mg PO [facility] Stop: 02/24/22 08:59 Last Admin: 01/25/22 09:53 Dose: 81 mg Betamethasone/Clotrimazole (Clotrimazole/Betamethasone Cr 15 Gm Tube) 1 appln EXT BID PRN PRN Reason: . Stop: 02/24/22 05:40 Bupropion HCl (Bupropion Xl 300 Mg Tabcr) 300 mg PO [facility] Stop: 02/24/22 08:59 Last Admin: 01/25/22 09:54 Dose: 300 mg Carvedilol (Carvedilol 12.5 Mg Tab) 12.5 mg PO BID [facility] Stop: 02/24/22 08:59 Last Admin: 01/25/22 10:34 Dose: 12.5 mg Dextrose (Dextrose 50% 50 Ml Syringe) 25 - 50 ml IV UD PRN; Protocol PRN Reason: Hypoglycemia Protocol Stop: 02/24/22 06:59 Ferrous Sulfate (Ferrous Sulfate 325 Mg Tab) 325 mg PO QAM [facility] Stop: 02/24/22 08:59 Last Admin: 01/25/22 09:54 Dose: 325 mg Gabapentin (Gabapentin 300 Mg Cap) 300 mg PO TID [facility] Stop: 02/24/22 08:59 Last Admin: 01/25/22 09:53 Dose: 300 mg Glucagon (Glucagon For Inj 1 Mg Vial) 1 mg IM UD PRN; Protocol PRN Reason: Hypoglycemia Protocol Stop: 02/24/22 06:59 Glucose (Glucose 40% Gel 15 Gm Tube) 15 - 30 gm PO UD PRN; Protocol PRN Reason: Hypoglycemia Protocol Stop: 02/24/22 06:59 Glucose (Glucose 10 Tab/Tube) 4 - 8 tab PO UD PRN; Protocol PRN Reason: Hypoglycemia Protocol Stop: 02/24/22 06:59 Sodium Chloride (Nss 1000ml) 1,000 mls @ 75 mls/hr IV .[id number] [facility] Stop: 01/25/22 19:00 Last Admin: 01/25/22 06:55 Dose: 75 mls/hr Amiodarone HCl/Dextrose (Nexterone / D5w) 360 mg in 200 mls @ 16.667 mls/hr IV .Q12H [facility] Stop: 02/24/22 12:14 Last Admin: 01/25/22 11:36 Dose: 0.5 mg/min, 16.7 mls/hr Insulin Aspart (Insulin Aspart Per Unit) 0 units SC ACHS [facility] Stop: 02/24/22 09:14 Last Admin: 01/25/22 12:34 Dose: 5 units Labetalol HCl (Labetalol Hcl Iv 5 Mg/Ml 20ml) 10 mg IV Q4H PRN PRN Reason: Hypertension Stop: 02/24/22 05:40 Miscellaneous (Carbohydrates For Hypoglycemia ) 15 - 30 gm PO UD PRN PRN Reason: Hypoglycemia Treatment Stop: 02/24/22 06:59 Multivitamins (Multivitamin Tab) 1 tab PO QAM [facility] Stop: 02/24/22 08:59 Last Admin: 01/25/22 09:54 Dose: 1 tab Nitroglycerin (Nitroglycerin Sl 0.4 Mg/Tab Tab) 0.4 mg SL UD PRN PRN Reason: Chest Pain Stop: 02/24/22 05:40 Polyethylene Glycol (Polyethylene (Miralax) 17 Gm Pack) 17 gm PO DAILY PRN PRN Reason: Constipation Stop: 02/24/22 05:40 Valsartan ([facility]artan 80 Mg Tab) [facility] [place]: 02/24/22 08:59 Last Admin: 01/25/22 09:54 Dose: 320 mg
[2022-01-25 18:10] LABS: Appearance Urine Clear (Clear); Bacteria Urine Automated Negative (Negative); Bilirubin Urine Negative (Negative); Blood Urine 3+ (Negative); Color Urine Orange; Glucose Urine UA 3+ (Negative); Ketones Urine Trace (Negative); Leukocyte Esterase Urine Negative (Negative); Nitrite Urine Negative (Negative); Protein Urine 2+ (Negative); RBC Urine Automated >30 /hpf (0-4); Specific Gravity Urine 1.035 (1.000-1.030); Urobilinogen Urine Negative (Negative); pH Urine 5.5 (4.5-7.5)
[2022-01-25] MEDS: ACETAMINOPHEN 325 MG TAB PO PRN (21:40)
[2022-01-26] MEDS: AMIODARONE / D5W 360 MG/200 ML BAG IV SCH ×2 (04:17→16:09)
[2022-01-26] MEDS: INSULIN ASPART PER UNIT SC SCH ×2 (08:26→12:20)
[2022-01-26] MEDS: MULTIVITAMIN TAB PO SCH (08:38)
[2022-01-26] MEDS: amLODIPine BESYLATE 5 MG TAB PO SCH (08:38)
[2022-01-26] MEDS: GABAPENTIN 300 MG CAP PO SCH ×3 (08:38→20:54)
[2022-01-26] MEDS: VALSARTAN 80 MG TAB PO SCH (08:38)
[2022-01-26] MEDS: buPROPion XL 300 MG TABCR PO SCH (08:38)
[2022-01-26] MEDS: ASPIRIN 81 MG ECTAB PO SCH (08:38)
[2022-01-26] MEDS: FERROUS SULFATE 325 MG TAB PO SCH (08:38)
[2022-01-26] MEDS: carvediloL 12.5 MG TAB PO SCH ×2 (08:38→20:55)
--- NOTE | 2022-01-26 11:32 | Hospitalist Progress Note ---
Date of Service January 26, 2022 Assessment & Plan (1) RVOT ventricular tachycardia: Plan: - sustained ventricular tachycardia in the setting of excessive antihistamine intake with Benadryl and Claritin for seasonal allergies - accidental - started on amio drip - to continue per cards - will try to dc today per cardiology with uptitration of BB - increase carvedilol to 12.5mg BID per cardiology yesterday - pending further recs - repeat TTE per cardiology - telemetry monitoring (2) Diabetic neuropathy: Plan: - continue gabapentin (3) HTN (hypertension): Plan: - continue home medications (4) Type 2 diabetes mellitus: Plan: - unclear if Type 1 or Type 2, patient claims type 1 and has insulin pump - to use her own insulin pump when brought in - FSG AC+HS until insulin pump - ISS as needed for now - diabetic diet Plan DVT ppx: SCDs for now Code Status: Full Code Dispo: telemetry Bret Maher MD [facility] Medicine Admission and Anticipated Discharge Date Admission Date: January 25, 2022 Subjective Patient with DM1 on home insulin pump, diabetic neuropathy, PCOS, JA, HTN, obesity, GERD, h/o ventricular ectomy presented with shaking and palpitations after taking extra dose of benadryl and claritin, found to be in sustained ventricular tachycardia as result. Cardiology consulted and continued on amiodarone drip, increased carvedilol to 12.5mg BID and pending repeat TTE in sinus rhythm. The patient reports feeling better, denies shaking, palpitations, chest pain, shortness of breath, n/v/d, abdominal pain, LOC, cough, fever or chills, dysuria. 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, no rales, n o rhonchi and no w heezes Cardiovascular:L Rate/Rhythm: regul ar rate and regula r rhythm Heart So unds: normal S1 an d normal S2; no mu rmur Vessels: rad ial pulses present ; no JVD and no ca rotid bruit Extre mities: no edema Gastrointestinal ( Abdomen): Inspection/Auscult ation: abdomen nor mal to inspection; abdomen not diste nded Percussion/P alpation: abdomen soft; abdomen nont aidan, no guarding and abdomen not r igid Neurologic: CN's II-XI intact bilaterally and mo ves all extremitie s; no focal motor deficits Psychiatric: A+Ox3, euthymic af fect Results & Data Results & Data ([facility]) Vital Signs (Past 12 Hours) Vital Signs Temp Pulse Pulse Resp BP BP Pulse Ox 01/26/22 11:27 36.7 C 83 16 129/80 95 01/26/22 08:30 36.4 C L 74 16 129/80 99 01/26/22 03:00 85 24 96 01/26/22 02:46 36.5 C 81 16 149/87 H 97 O2 Del Method 01/26/22 11:27 Room Air 01/26/22 08:30 Room Air 01/26/22 03:00 01/26/22 02:46 Room Air Laboratory Results Urine 01/25/22 Range/Units 16:48 Urine Color [place] Urine Appearance Clear (Clear) Urine pH 5.5 (4.5-7.5) Ur Specific [place] 1.035 H (1.000-1.030) Urine Protein 2+ H (Negative) Urine Glucose (UA) 3+ H (Negative) Diagnostic Findings reviewed Medications Administered Current Inpatient Medications Acetaminophen (Acetaminophen 325 Mg Tab) 650 mg PO Q4H PRN PRN Reason: Pain or Fever Stop: 02/24/22 05:40 Last Admin: 01/25/22 21:40 Dose: 650 mg Amlodipine Besylate (Amlodipine Besylate 5 Mg Tab) 10 mg PO [facility] Stop: 02/24/22 08:59 Last Admin: 01/26/22 08:38 Dose: 10 mg Aspirin (Aspirin 81 Mg Ectab) 81 mg PO [facility] Stop: 02/24/22 08:59 Last Admin: 01/26/22 08:38 Dose: 81 mg Betamethasone/Clotrimazole (Clotrimazole/Betamethasone Cr 15 Gm Tube) 1 appln EXT BID PRN PRN Reason: . Stop: 02/24/22 05:40 Bupropion HCl (Bupropion Xl 300 Mg Tabcr) 300 mg PO [facility] Stop: 02/24/22 08:59 Last Admin: 01/26/22 08:38 Dose: 300 mg Carvedilol (Carvedilol 12.5 Mg Tab) 12.5 mg PO BID [facility] Stop: 02/24/22 08:59 Last Admin: 01/26/22 08:38 Dose: 12.5 mg Dextrose (Dextrose 50% 50 Ml Syringe) 25 - 50 ml IV UD PRN; Protocol PRN Reason: Hypoglycemia Protocol Stop: 02/24/22 06:59 Ferrous Sulfate (Ferrous Sulfate 325 Mg Tab) 325 mg PO QAM [facility] Stop: 02/24/22 08:59 Last Admin: 01/26/22 08:38 Dose: 325 mg Gabapentin (Gabapentin 300 Mg Cap) 300 mg PO TID [facility] Stop: 02/24/22 08:59 Last Admin: 01/26/22 08:38 Dose: 300 mg Glucagon (Glucagon For Inj 1 Mg Vial) 1 mg IM UD PRN; Protocol PRN Reason: Hypoglycemia Protocol Stop: 02/24/22 06:59 Glucose (Glucose 40% Gel 15 Gm Tube) 15 - 30 gm PO UD PRN; Protocol PRN Reason: Hypoglycemia Protocol Stop: 02/24/22 06:59 Glucose (Glucose 10 Tab/Tube) 4 - 8 tab PO UD PRN; Protocol PRN Reason: Hypoglycemia Protocol Stop: 02/24/22 06:59 Amiodarone HCl/Dextrose (Nexterone / D5w) 360 mg in 200 mls @ 16.667 mls/hr IV .Q12H [facility] Stop: 02/24/22 12:14 Last Admin: 01/26/22 04:17 Dose: 0.5 mg/min, 16.7 mls/hr Insulin Aspart (Insulin Aspart Per Unit) 0 units SC ACHS [facility] Stop: 02/24/22 09:14 Last Admin: 01/26/22 08:26 Dose: Not Given Labetalol HCl (Labetalol Hcl Iv 5 Mg/Ml 20ml) 10 mg IV Q4H PRN PRN Reason: Hypertension Stop: 02/24/22 05:40 Miscellaneous (Carbohydrates For Hypoglycemia ) 15 - 30 gm PO UD PRN PRN Reason: Hypoglycemia Treatment Stop: 02/24/22 06:59 Multivitamins (Multivitamin Tab) 1 tab PO QAM [facility] Stop: 02/24/22 08:59 Last Admin: 01/26/22 08:38 Dose: 1 tab Nitroglycerin (Nitroglycerin Sl 0.4 Mg/Tab Tab) 0.4 mg SL UD PRN PRN Reason: Chest Pain Stop: 02/24/22 05:40 Polyethylene Glycol (Polyethylene (Miralax) 17 Gm Pack) 17 gm PO DAILY PRN PRN Reason: Constipation Stop: 02/24/22 05:40 Valsartan (Valsartan 80 Mg Tab) 320 mg PO [facility] Stop: 02/24/22 08:59 Last Admin: 01/26/22 08:38 Dose: 320 mg
--- NOTE | 2022-01-26 11:43 | Cardiology Progress Note ---
Date of Service January 26, 2022 Assessment & Plan (1) RVOT ventricular tachycardia: (2) Hypomagnesemia: (3) Hypokalemia: (4) Hypertensive urgency: (5) Hypertensive heart disease: (6) Noncompliance: Plan 37-year-old female presents with palpitations and sustained ventricular t achycardia likely incited by excessive antihistamine intake (Benadryl plus Claritin) and noncompliance with beta-marciano therapy. Longstanding history of frequent ventricular ectopy. ECG consistent with right ventricular outflow tract ventricular tachycardia. Ventricular tachycardia and PVCs resolved this AM. IV amiodarone infusing. Carvedilol titrated to 12.5 mg twice daily. Blood pressure markedly improved with resumption of antihypertensive therapies. Repeat echocardiogram performed during sinus rhythm demonstrates preserved LV systolic function without regional wall motion abnormality. Further ischemic evaluation is warranted. Discussed proceeding with cardiac catheterization versus stress testing. Patient prefers to avoid cardiac cath at this time, however, willing to consider invasive procedure if stress testing is abnormal. We will schedule exercise stress echo in a.m. Add daily magnesium supplementation. Repeat basic metabolic panel in a.m. Admission and Anticipated Discharge Date Admission Date: January 25, 2022 Subjective Patient seen and examined at the bedside. PVCs and short salvos of nonsustained ventricular tachycardia persisting until approximately midnight. Sinus rhythm with minimal ectopy noted this morning. Palpitations have significantly improved. Preliminary review of Limited bedside echo demonstrates preserved LV systolic function with left ventricular hypertrophy. Patient denies chest pain or shortness of breath. Blood pressure trended down to normal. High- sensitivity troponin within normal limits. ECG this morning demonstrating normal sinus rhythm with a nonspecific T wave abnormality and prolonged QT interval (481ms). Review of Systems Review of Systems: All systems reviewed & are unremarkable except as noted in Subjective Physical Exam Constitutional: well developed and well nourished; no acute distress Respiratory: normal respiratory effort; no respiratory distress Auscultation: no crackles, no rales, no rhonchi and no wheezes Cardiovascular: Rate/Rhythm: regular rate and regular rhythm Heart Sounds: normal S1 and normal S2; no murmur Vessels: radial pulses present; no JVD and no carotid bruit Extremities: no edema Gastrointestinal (Abdomen): Inspection/Auscultation: abdomen normal to inspection; abdomen not distended Percussion/Palpation: abdomen soft; abdomen nontender, no guarding and abdomen not rigid Neurologic: CN's II-XI intact bilaterally and moves all extremities; no focal motor deficits Psychiatric: A+Ox3, euthymic affect Results & Data ([facility]) Vital Signs (Past 12 Hours) Vital Signs Temp Pulse Pulse Resp BP BP Pulse Ox 01/26/22 11:27 36.7 C 83 16 129/80 95 01/26/22 08:30 36.4 C L 74 16 129/80 99 01/26/22 03:00 85 24 96 01/26/22 02:46 36.5 C 81 16 149/87 H 97 O2 Del Method 01/26/22 11:27 Room Air 01/26/22 08:30 Room Air 01/26/22 03:00 01/26/22 02:46 Room Air
[2022-01-26] MEDS ORDERED: INSULIN ASPART 100 UNITS/ML VIAL SC PRN (12:30)
[2022-01-26] MEDS: NovoLOG INSULIN PUMP SCH ×3 (12:43→20:56)
--- NOTE | 2022-01-26 12:53 | Electrocardiogram Report ---
Test Reason : Blood Pressure : / mmHG Vent. Rate : 079 BPM Atrial Rate : 079 BPM P-R Int : 158 ms QRS Dur : 072 ms QT Int : 420 ms P-R-T Axes : 051 027 047 degrees QTc Int : 481 ms Normal sinus rhythm Anterior ST abnormality Prolonged QT Abnormal ECG When compared with ECG of 25-JAN-2022 07:22, Sinus rhythm has replaced Wide QRS tachycardia Vent. rate has decreased BY 52 BPM Confirmed by Taco Steiner ([id number]) on 01/26/2022 12:53:28 PM Referred By: REFERRED SELF Confirmed By:Taco Steiner
[2022-01-26] MEDS: MAGNESIUM SULFATE / D5W 1 GM/100 ML BAG IV SCH ×5 (14:25→22:09)
[2022-01-26] MEDS: ACETAMINOPHEN 325 MG TAB PO PRN (15:49)
[2022-01-27] MEDS: AMIODARONE / D5W 360 MG/200 ML BAG IV SCH (03:12)
[2022-01-27] MEDS: NovoLOG INSULIN PUMP SCH ×2 (08:08→12:30)
[2022-01-27] MEDS: GABAPENTIN 300 MG CAP PO SCH ×2 (08:58→13:28)
[2022-01-27] MEDS: ASPIRIN 81 MG ECTAB PO SCH (08:59)
[2022-01-27] MEDS: carvediloL 12.5 MG TAB PO SCH (08:59)
[2022-01-27] MEDS: amLODIPine BESYLATE 5 MG TAB PO SCH (08:59)
[2022-01-27] MEDS: buPROPion XL 300 MG TABCR PO SCH (08:59)
[2022-01-27] MEDS: VALSARTAN 80 MG TAB PO SCH (08:59)
[2022-01-27] MEDS: FERROUS SULFATE 325 MG TAB PO SCH (08:59)
[2022-01-27] MEDS: MULTIVITAMIN TAB PO SCH (10:28)
--- NOTE | 2022-01-27 12:35 | Cardiology Progress Note ---
Date of Service January 27, 2022 Assessment & Plan (1) RVOT ventricular tachycardia: (2) Hypomagnesemia: (3) Hypokalemia: (4) Hypertensive urgency: (5) Hypertensive heart disease: (6) Noncompliance: Plan 37-year-old female presents with palpitations and sustained ventricular t achycardia likely incited by excessive antihistamine intake (Benadryl plus Claritin) and noncompliance with beta-marciano therapy. Longstanding history of frequent ventricular ectopy. ECG consistent with right ventricular outflow tract ventricular tachycardia. Preserved LV systolic function denotes low risk of sudden cardiac . No recurrent ventricular tachycardia overnight. Intravenous amiodarone discontinued. Exercise stress echo without evidence of inducible ischemia or ventricular tachycardia despite submaximal heart rate.Case discussed with electrophysiology. Continue carvedilol (titrated from 6.25 twice daily to 12.5 mg twice daily during hospitalization) in addition to other antihypertensive medications. No antiarrhythmic therapy at this time. Close electrophysiology follow-up scheduled 01/29/2022 at 7:30 AM, [facility] office. Discuss further imaging as outpatient including cardiac MRI and possible nuclear stress testing. Patient voiced understanding. Importance of compliance with current cardiovascular medications and follow-up appointments discussed at length. Admission and Anticipated Discharge Date Admission Date: January 25, 2022 Subjective Patient seen and examined at the bedside. Exercise stress echo performed earlier this AM. No evidence of inducible ischemia, however, patient unable to achieve target heart rate. PVCs less frequent at higher levels of exercise. No exercise-induced ventricular tachycardia. Currently feeling well from a cardiovascular perspective. Occasional PVCs recorded overnight. Anxious for discharge. Review of Systems Review of Systems: All systems reviewed & are unremarkable except as noted in Subjective Physical Exam Constitutional: well developed and well nourished; no acute distress Respiratory: normal respiratory effort; no respiratory distress Auscultation: no crackles, no rales, no rhonchi and no wheezes Cardiovascular: Rate/Rhythm: regular rate and regular rhythm Heart Sounds: normal S1 and normal S2; no murmur Vessels: radial pulses present; no JVD and no carotid bruit Extremities: no edema Gastrointestinal (Abdomen): Inspection/Auscultation: abdomen normal to inspection; abdomen not distended Percussion/Palpation: abdomen soft; abdomen nontender, no guarding and abdomen not rigid Neurologic: CN's II-XI intact bilaterally and moves all extremities; no focal motor deficits Psychiatric: A+Ox3, euthymic affect Results & Data ([facility]) Vital Signs (Past 12 Hours) Vital Signs Temp Pulse Pulse Resp BP Pulse Ox O2 Del Method 01/27/22 11:56 36.5 C 85 20 149/92 H 97 Room Air 01/27/22 07:15 Room Air 01/27/22 07:00 83 01/27/22 07:51 36.7 C 82 18 150/93 H 96 Room Air 01/27/22 02:50 36.8 C 83 20 116/70 98 BiPAP 01/27/22 02:11 21 96
--- NOTE | 2022-01-27 13:22 | Electrocardiogram Report ---
Test Reason : Blood Pressure : / mmHG Vent. Rate : 083 BPM Atrial Rate : 083 BPM P-R Int : 166 ms QRS Dur : 072 ms QT Int : 374 ms P-R-T Axes : 049 027 031 degrees QTc Int : 439 ms Normal sinus rhythm Nonspecific T wave abnormality Abnormal ECG When compared with ECG of 26-JAN-2022 04:58, Non-specific change in ST segment in Anterior leads Confirmed by Joel Teague ([id number]) on 01/27/2022 1:22:19 PM Referred By: REFERRED SELF Confirmed By:Joel Teague
--- NOTE | 2022-01-27 14:44 | Discharge Summary ---
Date of Service January 27, 2022 Admission HPI Per Admitting Provider DATE OF ADMISSION: 01/25/2022. CHIEF COMPLAINT: Tachycardia. HISTORY OF PRESENT ILLNESS: A 36-year-old female with past medical history significant for type 2 diabetes, diabetic polyneuropathy, diabetic retinopathy, polycystic ovarian syndrome, obstructive sleep apnea, obstructive lung disease, hypertension, morbid obesity, GERD, chronic bilateral low back pain, migraines, umbilical hernia, depression, who presents because of tachycardia. The patient says she was having cold and runny nose and cough and she took Claritin at 9:00 p.m., then at 11:00 she took Benadryl, when she felt shakiness and palpitations and somewhat dizzy, so she was brought in to the hospital for tachycardia. There seems to had runs of v tach, so she was started on amiodarone drip. Currently, resting comfortably and hemodynamically stable. Blood pressure running high. The patient denies any headache. No blurred visions, no earache, no sore throat. Has some cough. No fever, no chills. No difficulty swallowing. No chest pain, no shortness of breath. No nausea, no abdominal pain. Normal bowel and bladder movements. She did not have this kind of episode in the past. ALLERGIES: BANANA, LISINOPRIL, PEACH, PINEAPPLE FRUIT. PAST MEDICAL HISTORY: As mentioned above. PAST SURGICAL HISTORY: Appendectomy, treated missed , left salpingo- oophorectomy. MEDICATIONS: The patient is on albuterol 1 puff inhalation q. 4 hours p.r.n., Norvasc 10 mg p.o. a.m., aspirin 81 mg p.o. daily, Wellbutrin XL 300 mg p.o. a.m., Coreg 6.25 mg p.o. b.i.d., Zyrtec 10 mg p.o. a.m., ferrous sulfate 325 mg p.o. a.m., gabapentin 300 mg p.o. t.i.d., on insulin pump, metformin 1000 mg a.m. and 1500 mg a.m., multivitamin 1 tablet daily, Zofran 4 mg p.r.n., valsartan 320 mg p.o. a.m. FAMILY HISTORY: Significant for father had diabetes; mother has diabetes, hyperlipidemia, hypertension; maternal grandmother has diabetes. SOCIAL HISTORY: Single. Quit smoking in 2008. No alcohol use. No drug use. REVIEW OF SYSTEMS: As per HPI. Rest of review of systems is negative. Admission Exam Per Admitting Provider GENERAL: The patient is morbidly obese, not in acute distress. VITAL SIGNS: Temperature afebrile, pulse 130s, respiratory rate 28, blood pressure currently 238/113, oxygen 98% on room air. HEENT: Pupils equal, round and reactive to light. Oral mucosa moist. NECK: No JVD, no neck masses. CARDIOVASCULAR: S1 and S2 heard, tachycardia, somewhat irregular rhythm. RESPIRATORY SYSTEM: Normal AP diameter. No accessory muscle use. No wheezing, no crackles. ABDOMEN: Soft, bowel sounds present, nontender, no distention. CENTRAL NERVOUS SYSTEM: Cranial nerves II-XII grossly intact, nonfocal. EXTREMITIES: Mild edema, no erythema seen. Principal Diagnosis RVOT ventricular tachycardia Discharge Exam GENERAL: Alert and oriented x3. NAD, on RA. Obesity class III. HEENT: No pallor, no icterus. Pupils equal, round and reactive to light. Oral mucosa moist. NECK: No JVD, no neck masses. HEART: S1 and S2 heard. Regular rate and rhythm. No murmur, no gallop. RESPIRATORY SYSTEM: Normal AP diameter. No accessory muscle use. No wheezing, no crackles. ABDOMEN: Soft, bowel sounds present, nontender, no distention. CENTRAL NERVOUS SYSTEM: No facial droop. Speech is clear. Obeys simple commands. Moves extremities. EXTREMITIES: No edema, no erythema seen. Discharge Data Allergies Allergy/AdvReac Type Severity Reaction Status Date / Time banana Allergy Intermediate swelling Verified 01/25/22 01:58 lisinopril AdvReac Intermediate COUGH Verified 01/25/22 01:58 peach AdvReac Intermediate swelling Verified 01/25/22 01:58 pineapple AdvReac Intermediate swelling Verified 01/25/22 01:58 fruit Allergy Severe Swelling Uncoded 01/25/22 01:59 of Lip/Tongue/Throat Consultations 01/25/22 03:02 ED Decision to Admit Stat 01/25/22 08:00 Consult Cardiology Routine Hospital Course (1) RVOT ventricular tachycardia: Plan Patient was managed for the following while in hospital: (1) RVOT ventricular tachycardia: Plan: -Presented with sustained ventricular tachycardia in the setting of excessive antihistamine intake with Benadryl and Claritin for seasonal allergies - accidental. Patient has history of frequent ventricular ectopy. -Cardiology evaluated, status post IV amiodarone, carvedilol dose increased to 12.5 mg twice daily. Patient to follow-up with cardiology and electrophysiology as an outpatient. -Patient with improvement in her symptoms, no further ventricular tachycardia overnight. -Status post stress test without evidence of inducible ischemia or ventricular tachycardia -Patient advised medication compliance and minimize the use of Benadryl/Claritin -Patient to maintain follow-up with PCP/cardiology/EP as an outpatient. (2) Diabetic neuropathy: Plan: - continue gabapentin (3) HTN (hypertension): Plan: - continue home medications (4) Type 2 diabetes mellitus: Plan: - unclear if Type 1 or Type 2, patient claims type 1 and has insulin pump -Continue with home meds upon discharge. - diabetic diet Patient being discharged home with following instruction at the point of discharge: Follow-up with the primary care physician in a week time. After your visit, you will likely need CBC/CMP/magnesium level tested. Follow-up with your cardiology and electrophysiology as an outpatient as scheduled. Cardiology evaluated you while in hospital, continue with your medication recommendations. Your carvedilol has been increased to 12.5 Mg twice a day. Minimize your Benadryl/Claritin use, recommend compliance with home meds. For your seasonal allergies, recommend to follow-up with your PCP if they flareup. Take your medications as prescribed. Total Time Total Time Spent Total Time Spent (In Minutes): 40 Discharge Plan Discharge Items Patient Disposition: Home - Self-Care Reason For Visit: CARDIAC ASSESSMENT Discharge Diagnosis: RVOT ventricular tachycardia Activity: Resume your previous activity Non-emergency contact: Primary Care Provider Call non-emergency contact if: you have any medication questions and your symptoms worsen Follow-up/Referrals: Neena Mcgrath MD [Primary Care Provider] - (Date & Time 01/31/2022 11:00 AM Provider Neena Mcgrath MD Department General Internal Medicine [facility] ) Tanja Zepeda DO [Physician] - (Date & Time 01/29/2022 7:30 AM Provider Tanja Zepeda DO Department Cardiology, [facility] ) Diet: Carb Count or DM1 and Heart Healthy Addtl Attending Provider Instructions: Follow-up with the primary care physician in a week time. After your visit, you will likely need CBC/CMP/magnesium level tested. Follow-up with your cardiology and electrophysiology as an outpatient as scheduled. Cardiology evaluated you while in hospital, continue with your medication recommendations. Your carvedilol has been increased to 12.5 Mg twice a day. Minimize your Benadryl/Claritin use, recommend compliance with home meds. For your seasonal allergies, recommend to follow-up with your PCP if they flareup. Take your medications as prescribed. Pending Studies at Discharge: No Stand-Alone Forms: [facility] Medications and DC Order Prescriptions: Continued insulin aspart U-100 [Novolog U-100 Insulin aspart] 100 unit/mL solution 0 unit continuous subcutaneous infusion CONTINOUS gabapentin 300 mg capsule 300 mg PO TID aspirin 81 mg Tablet,Delayed Release (Dr/Ec) 81 mg PO QAM ferrous sulfate 325 mg (65 mg iron) Tablet 325 mg PO QAM metformin 1,000 mg Tablet 1,000 mg PO QAM metformin 1,000 mg Tablet 1,500 mg PO QPM multivitamin [Daily Multi-Vitamin] Tablet 1 tab PO QAM amlodipine [Norvasc] 10 mg tablet 10 mg PO QAM clotrimazole-betamethasone 1-0.05 % cream 1 applic TOPICAL BID PRN (Reason: .) valsartan [Diovan] 320 mg tablet 320 mg PO QAM albuterol sulfate [Ventolin HFA] 90 mcg/actuation HFA aerosol inhaler 1 puff INHALATION Q4H PRN (Reason: Shortness Of Breath) bupropion HCl [Wellbutrin XL] 300 mg tablet extended release 24 hr 300 mg PO QAM ondansetron HCl [Zofran] 4 mg tablet 4 mg PO Q6H PRN (Reason: nausea and vomiting) Qty: 12 0RF Changed carvedilol [Coreg] 6.25 mg tablet 12.5 mg PO BID Qty: 120 0RF Rx Instructions: Take with food Discontinued cetirizine [Zyrtec] 10 mg tablet 10 mg PO QAM Discharge Orders: Discharge Order (Routine); Ordered 01/27/22 Ordered By: Jaden Godinez Admission Data Admit Date/Time: 01/25/22 04:21 Attending Provider: Jaden Godinez Admit Provider: Arnav Sarmiento Primary Care Provider: Neena Mcgrath Other Providers: Arnav Sarmiento ; Virgilio Fitzgerald
== END 2022-01-27 16:40 | disposition home or self-care (01) | DRG 918 ==
LOC: ED 00:46 → SUATTDRO 04:21 → 4W 04:21

== ENCOUNTER 2022-09-02 13:21 | Inpatient (IN) ==
--- NOTE | 2022-09-02 13:27 | ED Triage Note ---
Date of Service September 02, 2022 History of Present Illness This patient was briefly evaluated while in triage. An abbreviated physical exam was performed. This patient is a 37-year-old Female who presents to the ED for evaluation of shortness of breath and high BP. Patient was at her OB office for a BP check and was referred to ED for further evaluation. Currently 30 weeks and diagnosed with pre-eclampsia 3 weeks ago. She denies history of blood clots. Physical Exam Vital signs significant for BP 191/114 and tachycardic 108 RR 16 O2 94 Constitutional: alert and oriented x3. no acute distress. HEENT: normocephalic, atraumatic. normal conjunctiva.EOM's grossly intact. Respiratory: lungs are clear to auscultation without wheezes, rhonchi, or rales bilaterally. equal chest rise. normal respiratory effort, no accessory muscle use. Cardiovascular: normal heart sounds without murmur. regular rate and rhythm. BLE swelling GI: abdomen is soft, nontender. No palpable masses. No rebound tenderness or guarding. Neuro: mentating appropriately Psych:appropriate mood and affect. Initial orders for labs and / or imaging were placed and patient was placed in the waiting area until a bed is available. Please see further documentation for the full ED course.
--- NOTE | 2022-09-02 14:12 | Emergency Department Note ---
History of Present Illness General Chief complaint: Shortness of Breath/Dyspnea Stated complaint: SOB,HIGH BP,30WKS PREG Time Seen by Provider: 09/02/22 13:58 Source: patient, RN notes reviewed and old records reviewed (Dustin spicer reviewed the notes from [facility]) Mode of arrival: ambulatory Limitations: no limitations History of Present Illness This patient is a 37-year-old female who is approximately 30 weeks , sent over from the office after having high blood pressure and shortness of breath and wants to evaluate for possible PE. She apparently was here over the weekend and sent to [place] after she had high blood pressure. She says she is been compliant with her meds since then she does have a history of high blood pressure but at baseline she tells me. She has had no cough or chest pain or shortness of breath no syncope no fever no blood or melena stool. She does have lower extremity swelling has been going on for several weeks. Home Medications Medication Instructions Recorded Confirmed Type aspirin 81 mg tablet,delayed 81 mg PO QAM 11/18/18 01/25/22 History release ferrous sulfate 325 mg (65 mg 325 mg PO QAM 11/18/18 01/25/22 History iron) tablet metformin 1,000 mg tablet 1,000 mg PO QAM 11/18/18 01/25/22 History metformin 1,000 mg tablet 1,500 mg PO QPM 11/18/18 01/25/22 History insulin aspart U-100 100 unit/mL 0 unit continuous subcutaneous 01/29/19 01/25/22 History subcutaneous solution (Novolog infusion CONTINOUS U-100 Insulin aspart) albuterol sulfate 90 mcg/actuation 1 puff inhalation Q4H PRN 02/17/21 01/25/22 History aerosol inhaler (Ventolin HFA) Shortness Of Breath multivitamin (Daily Multi-Vitamin 1 tab PO QAM 02/17/21 01/25/22 History tablet) ondansetron HCl 4 mg tablet 4 mg PO Q6H PRN nausea and 02/17/21 01/25/22 Rx (Zofran) vomiting #12 tabs Allergies Allergy/AdvReac Type Severity Reaction Status Date / Time banana Allergy Intermediate swelling Verified 01/25/22 01:58 lisinopril AdvReac Intermediate COUGH Verified 01/25/22 01:58 peach AdvReac Intermediate swelling Verified 01/25/22 01:58 pineapple AdvReac Intermediate swelling Verified 01/25/22 01:58 fruit Allergy Severe Swelling Uncoded 01/25/22 01:59 of Lip/Tongue/Throat Past Med/Surg History Medical History Acquired claw toe of left foot Acquired claw toe of right foot Chronic back pain since 2011 Diabetic neuropathy left foot History of PCOS since 2012 HTN (hypertension) for past 6 years; has been on Lisinopril in past but now allergic; also on Atenolol but not on meds currently due to Hx of migraines since age 11 Pain of left foot Type 2 diabetes mellitus for past 8 years; using Insulin pump for past 2 years Type 2 diabetes mellitus with diabetic neuropathy Surgical History History of left salpingo-oophorectomy 2016 Hx of appendectomy age 13 Family History Mother Diabetes Hypertension Stroke Grandmother No problems noted. Father Diabetes Grandmother (Maternal) Diabetes Hypertension Stroke Social History Smoking Status: Former smoker Tobacco Type: Cigarettes Second Hand Exposure: No; Hx Alcohol Use: No Hx Substance Use: No Preferred Language: Macedonian Communication Ability: Effective Loin Trimmer Required: No Beliefs That Will Affect Care: None marital status: Single Current Living Situation: Family Feels Safe at Home: Yes Assistive Devices: None Review of Systems A total of 10 systems reviewed and were otherwise negative Physical Exam Vital Signs Vital Signs - 24 hr 09/02/22 13:27 09/02/22 14:18 09/02/22 14:18 Temperature 36.6 C Temperature Source Temporal Artery Scan Pulse Rate 108 H 106 H Pulse Rate from SpO2 Sensor Pulse Rhythm Regular Respiratory Rate 16 22 Respiratory Effort / Characteristics Non-Labored Respiratory Depth Deep Respiratory Pattern Tachypnea Blood Pressure 191/114 H Blood Pressure Mean 139 Pulse Oximetry 94 96 Oxygen Delivery Method Room Air Room Air Oxygen Flow Rate Sepsis Recent Fever Within 48 Hours No Sepsis New/Unexplained Change in Mental Status N/A Sepsis Action Taken by Nursing No Action Required Oxygen Flow Rate - Titration Pulse Oximetry Post Tiitration 09/02/22 14:18 09/02/22 14:37 09/02/22 15:47 Temperature Temperature Source Pulse Rate 108 H 99 H Pulse Rate from SpO2 Sensor 106 H Pulse Rhythm Respiratory Rate 24 Respiratory Effort / Characteristics Respiratory Depth Respiratory Pattern Blood Pressure 174/95 H Blood Pressure Mean 121 Pulse Oximetry 96 95 Oxygen Delivery Method Room Air Oxygen Flow Rate Sepsis Recent Fever Within 48 Hours Sepsis New/Unexplained Change in Mental Status Sepsis Action Taken by Nursing Oxygen Flow Rate - Titration Pulse Oximetry Post Tiitration 09/02/22 16:35 09/02/22 16:35 09/02/22 15:30 Temperature Temperature Source Pulse Rate 104 H 98 H Pulse Rate from SpO2 Sensor Pulse Rhythm Regular Respiratory Rate 34 H 26 H Respiratory Effort / Characteristics Respiratory Depth Respiratory Pattern Blood Pressure 151/92 H Blood Pressure Mean 111 Pulse Oximetry 85 L 85 L Oxygen Delivery Method Room Air Room Air Oxygen Flow Rate Sepsis Recent Fever Within 48 Hours Sepsis New/Unexplained Change in Mental Status Sepsis Action Taken by Nursing Oxygen Flow Rate - Titration 2 Pulse Oximetry Post Tiitration 97 09/02/22 16:00 09/02/22 16:27 09/02/22 17:20 Temperature Temperature Source Pulse Rate 99 H 103 H 101 H Pulse Rate from SpO2 Sensor 100 H 101 H 101 H Pulse Rhythm Respiratory Rate 23 27 H 26 H Respiratory Effort / Characteristics Respiratory Depth Respiratory Pattern Blood Pressure 166/93 H 153/96 H 162/96 H Blood Pressure Mean 117 115 118 Pulse Oximetry 95 96 99 Oxygen Delivery Method Oxygen Flow Rate Sepsis Recent Fever Within 48 Hours Sepsis New/Unexplained Change in Mental Status Sepsis Action Taken by Nursing Oxygen Flow Rate - Titration Pulse Oximetry Post Tiitration 09/02/22 17:30 Temperature Temperature Source Pulse Rate 100 H Pulse Rate from SpO2 Sensor 100 H Pulse Rhythm Respiratory Rate 34 H Respiratory Effort / Characteristics Respiratory Depth Respiratory Pattern Blood Pressure 147/96 H Blood Pressure Mean 113 Pulse Oximetry 99 Oxygen Delivery Method Nasal Cannula Oxygen Flow Rate 2 Sepsis Recent Fever Within 48 Hours Sepsis New/Unexplained Change in Mental Status Sepsis Action Taken by Nursing Oxygen Flow Rate - Titration Pulse Oximetry Post Tiitration General: Well developed well nourished [id number] gravid young female who in no acute distress, breathing comfortably on room air. Normal speech HEENT: Normal cephalic atraumatic. Pupils are equal round and reactive to light. Extraocular movements are intact. Oropharynx is pink with moist mucous membranes. No swelling of the mouth lips or tongue. Neck: Supple with a midline trachea. No meningeal signs or stiffness, no JVD or bruits. No Stridor. Chest: Clear to auscultation bilaterally. No wheezes or rhonchi. No increased work of breathing. Heart: Regular rate and rhythm without murmurs or gallops. Abdomen: Gravid but nontender, nondistended without rebound guarding or rigidity. She has a glucose monitor on her abdomen as well as an insulin pump Extremities: No cyanosis clubbing or edema. No calf tenderness or assymetry Spine/Back. Non tender to palpation. No CVA tenderness Skin: Good turgor without rashes. Neurologic exam: Cranial nerves two through 12 are intact. Motor and sensation are intact and symmetrical throughout. Course Administered Medications Hydralazine HCl (Hydralazine 10 Mg Tab) 10 mg PO BID [facility] Stop: 10/02/22 20:59 Last Admin: 09/02/22 20:58 Dose: 10 mg Documented By: ARIELA Levetiracetam (Levetiracetam 500 Mg Tab) 500 mg PO BID@0900,1900 [facility] Stop: 10/02/22 18:59 Last Admin: 09/02/22 19:06 Dose: 500 mg Documented By: BRIT Discontinued Medications Magnesium Sulfate/Dextrose (Magnesium Sulfate / D5w) 1 gm in 100 mls @ 200 mls/hr IV Q30M [facility] Stop: 09/02/22 16:17 Last Infusion: 09/02/22 18:17 Dose: 0 mls/hr Documented By: Admin: 09/02/22 17:19 Dose: 200 mls/hr Documented By: Infusion: 09/02/22 17:19 Dose: 0 mls/hr Documented By: Admin: 09/02/22 16:18 Dose: 200 mls/hr Documented By: BRIT Ioversol (Optiray 320 500ml) 113 ml IV ONCE ONE Stop: 09/02/22 17:10 Last Admin: 09/02/22 17:10 Dose: 113 ml Documented By: FINA Labetalol HCl (Labetalol Hcl Iv 5 Mg/Ml 20ml) 10 mg IV NOW STA Stop: 09/02/22 14:44 Last Admin: 09/02/22 15:12 Dose: 10 mg Documented By: ARIELA Co-signed By: TAMMY Labetalol HCl (Labetalol Hcl Iv 5 Mg/Ml 20ml) 10 mg IV NOW STA Stop: 09/02/22 16:16 Last Admin: 09/02/22 16:18 Dose: 10 mg Documented By: BRIT Co-signed By: ARILEA Labetalol HCl (Labetalol Hcl 300 Mg Tab) 300 mg PO TID LILA Stop: 10/02/22 18:24 Last Admin: 09/02/22 20:58 Dose: 300 mg Documented By: Admin: 09/02/22 18:42 Dose: 300 mg Documented By: ARIELA Nifedipine (Nifedipine Extended Rel 30 Mg Tabcr) 30 mg PO NOW STA Stop: 09/02/22 18:22 Last Admin: 09/02/22 18:41 Dose: 30 mg Documented By: ARIELA Medical Decision Making Differential Diagnosis complication, hypertension, preeclampsia, eclampsia, CHF, PE, acute coronary syndrome, arrhythmia Medical Records Attestation: I reviewed the patient's medical records. Home Medications Current Medication List: was personally reviewed by me Laboratory Data Attestation: I reviewed the patient's lab results. 09/02/22 14:12 09/02/22 14:12 Lab Results 09/02/22 09/02/22 09/02/22 Range/Units 14:12 14:12 14:12 WBC 9.40 (4.8-10.8) K/ul RBC 4.67 (4.20-5.40) M/uL Hgb 10.9 L (12.0-16.0) g/dl Hct 35.0 L (37.0-47.0) % MCV 74.9 L (80.0-100.0) fL MCH 23.3 L (25.0-34.0) pg MCHC 31.1 L (32.0-36.0) g/dL RDW Std Deviation 44.3 (36.4-46.3) fL RDW Coeff of Neftaly 16.7 H (11.5-14.5) % Plt Count 195 (130-400) K/uL MPV 10.7 (9.4-12.4) fL Immature Gran % (Auto) 1.3 % Neut % (Auto) 73.6 % Lymph % (Auto) 16.5 % Stoddard % (Auto) 7.2 % Eos % (Auto) 1.1 % Baso % (Auto) 0.3 % Neut # (Auto) 6.92 H (1.40-6.50) K/uL Lymph # (Auto) 1.55 (1.2-3.4) K/uL [place]oddard # (Auto) 0.68 H (0.11-0.59) K/uL Eos # (Auto) 0.10 (0-0.50) K/uL Baso # (Auto) 0.03 (0-0.2) K/uL Immature Gran # (Auto) 0.12 (0.01-0.20) K/uL Absolute Nucleated RBC 0.02 (0-0.12) K/uL Nucleated RBC % (auto) 0.2 % PT 10.9 (9.0-12.0) Seconds INR 1.0 (0.9-1.1) APTT 24.7 (21.0-31.0) Seconds PTT Ratio 0.9 D-Dimer 1760 H* (0-500) ug/L FEU Sodium 137 (136-145) mmol/L Potassium 3.6 (3.5-5.1) mmol/L Chloride 104 (98-107) mmol/L Carbon Dioxide 27 (21-32) mmol/L Anion Gap 6 (3-11) BUN 11 (6-23) mg/dl Creatinine 0.67 (0.6-1.2) mg/dl Est Cr Clr Drug Dosing 157.9 ml/min Est GFR ( Amer) 131.1 ml/min Est GFR (Non-Af Amer) 113.1 ml/min BUN/Creatinine Ratio 16.4 (10-20) Glucose 105 H (70-99(Fasting)) mg/dl POC Glucose (70-99) mg/dl Calcium 9.2 (8.6-10.3) mg/dl Magnesium 1.5 L (1.7-2.4) mg/dl Total Bilirubin 0.4 (0.2-1.0) mg/dl AST 17 (13-39) U/L ALT 15 (7-52) U/L Alkaline Phosphatase 72 (34-104) U/L Troponin I High Sens 13.6 (0-14) pg/ml Total Protein 7.4 (6.0-8.3) gm/dl Albumin 3.5 (3.4-5.0) gm/dl Globulin 3.9 (2.5-4.0) gm/dl Albumin/Globulin Ratio 0.9 (0.9-2) Lipase 16 (11-82) U/L POC Urine pH (4.5-7.5) POC Urine Protein (Negative) POC Ur Glucose (UA) (Normal) POC Urine Ketones (Negative) POC Urine Blood (Negative) POC Urine Nitrite (Negative) POC Urine Bilirubin (Negative) POC Urine Urobilinogen (Normal) POC U Leukocyte Esteras (Negative) 09/02/22 09/02/22 09/02/22 Range/Units 14:12 14:12 15:27 WBC (4.8-10.8) K/ul RBC (4.20-5.40) M/uL Hgb (12.0-16.0) g/dl Hct (37.0-47.0) % MCV (80.0-100.0) fL MCH (25.0-34.0) pg MCHC (32.0-36.0) g/dL RDW Std Deviation (36.4-46.3) fL RDW Coeff of Neftaly (11.5-14.5) % Plt Count (130-400) K/uL MPV (9.4-12.4) fL Immature Gran % (Auto) % Neut % (Auto) % Lymph % (Auto) % Stoddard % (Auto) % Eos % (Auto) % Baso % (Auto) % Neut # (Auto) (1.40-6.50) K/uL Lymph # (Auto) (1.2-3.4) K/uL Stoddard # (Auto) (0.11-0.59) K/uL Eos # (Auto) (0-0.50) K/uL Baso # (Auto) (0-0.2) K/uL Immature Gran # (Auto) (0.01-0.20) K/uL Absolute Nucleated RBC (0-0.12) K/uL Nucleated RBC % (auto) % PT (9.0-12.0) Seconds INR (0.9-1.1) APTT (21.0-31.0) Seconds PTT Ratio D-Dimer Cancelled (0-500) ug/L FEU Sodium (136-145) mmol/L Potassium (3.5-5.1) mmol/L Chloride (98-107) mmol/L Carbon Dioxide (21-32) mmol/L Anion Gap (3-11) BUN (6-23) mg/dl Creatinine (0.6-1.2) mg/dl Est Cr Clr Drug Dosing ml/min Est GFR ( Amer) ml/min Est GFR (Non-Af Amer) ml/min BUN/Creatinine Ratio (10-20) Glucose (70-99(Fasting)) mg/dl POC Glucose (70-99) mg/dl Calcium (8.6-10.3) mg/dl Magnesium (1.7-2.4) mg/dl Total Bilirubin (0.2-1.0) mg/dl AST (13-39) U/L ALT (7-52) U/L Alkaline Phosphatase (34-104) U/L Troponin I High Sens (0-14) pg/ml Total Protein (6.0-8.3) gm/dl Albumin (3.4-5.0) gm/dl Globulin (2.5-4.0) gm/dl Albumin/Globulin Ratio (0.9-2) Lipase Cancelled (11-82) U/L POC Urine pH 6 (4.5-7.5) POC Urine Protein Trace H (Negative) POC Ur Glucose (UA) Normal (Normal) POC Urine Ketones Negative (Negative) POC Urine Blood 250 H (Negative) POC Urine Nitrite Positive A (Negative) POC Urine Bilirubin Negative (Negative) POC Urine Urobilinogen Normal (Normal) POC U Leukocyte Esteras Negative (Negative) 09/02/22 Range/Units 16:26 WBC (4.8-10.8) K/ul RBC (4.20-5.40) M/uL Hgb (12.0-16.0) g/dl Hct (37.0-47.0) % MCV (80.0-100.0) fL MCH (25.0-34.0) pg MCHC (32.0-36.0) g/dL RDW Std Deviation (36.4-46.3) fL RDW Coeff of Neftaly (11.5-14.5) % Plt Count (130-400) K/uL MPV (9.4-12.4) fL Immature Gran % (Auto) % Neut % (Auto) % Lymph % (Auto) % Stoddard % (Auto) % Eos % (Auto) % Baso % (Auto) % Neut # (Auto) (1.40-6.50) K/uL Lymph # (Auto) (1.2-3.4) K/uL Stoddard # (Auto) (0.11-0.59) K/uL Eos # (Auto) (0-0.50) K/uL Baso # (Auto) (0-0.2) K/uL Immature Gran # (Auto) (0.01-0.20) K/uL Absolute Nucleated RBC (0-0.12) K/uL Nucleated RBC % (auto) % PT (9.0-12.0) Seconds INR (0.9-1.1) APTT (21.0-31.0) Seconds PTT Ratio D-Dimer (0-500) ug/L FEU Sodium (136-145) mmol/L Potassium (3.5-5.1) mmol/L Chloride (98-107) mmol/L Carbon Dioxide (21-32) mmol/L Anion Gap (3-11) BUN (6-23) mg/dl Creatinine (0.6-1.2) mg/dl Est Cr Clr Drug Dosing ml/min Est GFR ( Amer) ml/min Est GFR (Non-Af Amer) ml/min BUN/Creatinine Ratio (10-20) Glucose (70-99(Fasting)) mg/dl POC Glucose 105 H (70-99) mg/dl Calcium (8.6-10.3) mg/dl Magnesium (1.7-2.4) mg/dl Total Bilirubin (0.2-1.0) mg/dl AST (13-39) U/L ALT (7-52) U/L Alkaline Phosphatase (34-104) U/L Troponin I High Sens (0-14) pg/ml Total Protein (6.0-8.3) gm/dl Albumin (3.4-5.0) gm/dl Globulin (2.5-4.0) gm/dl Albumin/Globulin Ratio (0.9-2) Lipase (11-82) U/L POC Urine pH (4.5-7.5) POC Urine Protein (Negative) POC Ur Glucose (UA) (Normal) POC Urine Ketones (Negative) POC Urine Blood (Negative) POC Urine Nitrite (Negative) POC Urine Bilirubin (Negative) POC Urine Urobilinogen (Normal) POC U Leukocyte Esteras (Negative) Imaging Data Attestation: I personally reviewed and interpreted this imaging study as follows: My Impression: Chest x-raycardiomegaly without any definite infiltrate. Due to large body habitus is difficult to say if there is fluid overload Radiologist's Impression: Chest X-Ray 09/02/22 14:07 XR chest 1V portable CLINICAL HISTORY: sob, preg, shield abd TECHNIQUE: Single frontal radiograph of the chest was obtained. Comparison: Comparison is made to chest radiograph 08/21/2022 FINDINGS: Exam is limited by underpenetration. The cardiomediastinal silhouette is stable. Elevation of right hemidiaphragm is seen. No evidence of pleural effusion or pneumothorax. IMPRESSION: No acute abnormalities and in particular no radiographic evidence of pneumonia. ACT 112: Negative or not required by law. Electronically signed by: Haris Marinelli M.D. 09/02/2022 2:43 PM Chest CTA 09/02/22 16:06 CT ANGIOGRAPHY OF THE CHEST, PULMONARY EMBOLUS PROTOCOL CLINICAL HISTORY: Shortness of breath. 30 weeks . COMPARISON STUDY: Chest radiograph performed earlier today and chest CT January 14, 2013. TECHNIQUE: Following IV administration of 113 mL of Optiray, helical axial images of the chest were obtained utilizing the pulmonary embolus protocol. Maximal intensity projections and sagittal and coronal reformats were viewed on an independent 3D workstation. IV contrast was administered without complication. Automated exposure control was utilized for the study. A dose lowering technique was utilized adhering to the principles of ALARA. The abdomen and pelvis were double shielded. CT DOSE: 893.91 mGy.cm FINDINGS: No pulmonary emboli are identified although the segmental and subsegmental pulmonary arteries are suboptimally assessed due to respiratory motion. There is no thoracic aortic dissection. Size of the heart is normal. There is no pericardial effusion. There are prominent mediastinal and bilateral hilar lymph nodes. Mild elevation of the right hemidiaphragm is unchanged. There is a trace right pleural effusion. There is no pneumothorax. There are groundglass opacities with mosaic attenuation within the lungs. Minimal alveolar opacities within the left lower lobe are present. Mild interlobular septal thickening. No acute fractures within the bony thorax are noted. IMPRESSION: 1. No pulmonary emboli identified although segmental and subsegmental pulmonary arteries suboptimally assessed due to artifact. 2. Ground glass opacities with mosaic attenuation within the lungs. This may reflect air trapping. A mild superimposed infectious process cannot be excluded given minimal alveolar opacities within the left lower lobe. 3. Interlobular septal thickening. This may reflect mild pulmonary edema. 4. Prominent mediastinal and bilateral hilar lymph nodes which are likely reactive. ACT 112: Negative or not required by law. Electronically signed by: Jeremi Gabriel M.D. 09/02/2022 5:23 PM ECG Data Attestation: I personally reviewed and interpreted this ECG as follows: Indication: + SOB/dyspnea Rate (beats per minute): 110 Rhythm: + sinus tachycardia ECG Intervals/blocks: + Normal QRS, + Normal QT and + Normal NV ECG [place]: + Normal ECG ST segments: + Normal ST segments ECG Findings: no PACs or no PVCs Comparison ECG Date: from (08/21/22) Change: no significant change MDM Narrative This patient comes in described above. He is placed on quality assurance monitor body room C12. She looks and feels well at present. She has no current contractions or abdominal pain she had shortness of breath for weeks as well as had lower extremity swelling she was recently hospitalized for blood pressure. I have gotten the records from [facility]. In the meantime blood work was obtained she was placed on a quality assurance monitor body EKG was obtained as well as chest x-ray with a shield abdomen. I did do a D-dimer as well. Her D-dimer was elevated and it was almost 1500. This was up compared to where it was recently. The rest of her labs looks unremarkable discussed her magnesium being low at 1.5. With her pressure being in the 170s I did give her labetalol 10 mg IV and came down to 150 systolic. She is asymptomatic with this. I also gave her 2 g of mag IV. The [facility] doctor Dr. Naina Valentin, did see the patient in the ED and is doing heart monitoring. I did discuss the elevated D-dimer with the patient and explained the risk and the benefits and she did freely consent. The aviation technician aircraft also agrees with this plan. The CAT scan was done it shows no evidence of PE, she does have some nonspecific findings as well as possible CHF. The patient had remained stable although she did have an episode of desaturation when she went to the bathroom and got up from bed. She was placed on oxygen is 99% on room air. While her oxygen was low she apparently had a d ecellerations seen by the aviation technician aircraft. She was concerned about this and she consulted the [facility] technician aircraft in [place] where the patient was just lysed. They did not accept the patient transfer as they thought she was too unstable. She was seen by medicine as well. Please refer to the notes from internal medicine as well as [facility]. Again they were trying to transfer out but [facility] would not accept the patient. They are going to keep her here overnight and continue to treat her blood pressure monitor her and treat her here. The patient will be admitted. Continuous quality assurance monitor body: Orders placed in EMR for continuous quality assurance monitor body. Upon my evaluation it is noted to be in sinus tachycardia with rate 105 Impression & Plan Shortness of breath, Hypertension, Hypoxemia, Currently , D-dimer, elevated Discharge Plan Visit Data Chief Complaint: Shortness of Breath/Dyspnea Stated Complaint: SOB,HIGH BP,30WKS PREG ED Provider: Edison Cordova Discharge Problem: Shortness of breath, Hypertension, Hypoxemia, Currently , D-dimer, elevated Patient Disposition: Admitted As Inpatient
[2022-09-02 14:41] LABS: Basophils # (auto) 0.03 K/uL (0-0.2); Basophils % (auto) 0.3 %; Eosinophils % (auto) 1.1 %; Hemoglobin 10.9 g/dl (12.0-16.0); Immature Granulocytes # (auto) 0.12 K/uL (0.01-0.20); Immature Granulocytes % (auto) 1.3 %; Lymphocytes # (auto) 1.55 K/uL (1.2-3.4); Lymphocytes % (auto) 16.5 %; Mean Corpuscular Hemoglobin 23.3 pg (25.0-34.0); Mean Corpuscular Hgb Conc 31.1 g/dL (32.0-36.0); Mean Corpuscular Volume 74.9 fL (80.0-100.0); Mean Platelet Volume 10.7 fL (9.4-12.4); Monocytes # (auto) 0.68 K/uL (0.11-0.59); Monocytes % (auto) 7.2 %; Neutrophils # (auto) 6.92 K/uL (1.40-6.50); Neutrophils % (auto) 73.6 %; Nucleated RBC # (auto) 0.02 K/uL (0-0.12); Nucleated RBC % (auto) 0.2 %; Platelet Count 195 K/uL (130-400); RDW Coefficient of Variation 16.7 % (11.5-14.5); RDW Standard Deviation 44.3 fL (36.4-46.3); Red Blood Count 4.67 M/uL (4.20-5.40)
[2022-09-02] MEDS ORDERED: LABETALOL HCL IV 5 MG/ML 20ML IV STA ×2 (14:43→16:15)
--- NOTE | 2022-09-02 14:44 | XRay Report ---
XR chest 1V portable CLINICAL HISTORY: sob, preg, shield abd TECHNIQUE: Single frontal radiograph of the chest was obtained. Comparison: Comparison is made to chest radiograph 08/21/2022 FINDINGS: Exam is limited by underpenetration. The cardiomediastinal silhouette is stable. Elevation of right h emidiaphragm is seen. No evidence of pleural effusion or pneumothorax. IMPRESSION: No acute abnormalities and in particular no radiographic evidence of pneumonia. ACT 112: Negative or not required by law. Electronically signed by: Haris Marinelli M.D. 09/02/2022 2:43 PM
[2022-09-02 14:51] LABS: Albumin Globulin Ratio 0.9 (0.9-2); Albumin Level 3.5 gm/dl (3.4-5.0); BUN Creatinine Ratio 16.4 (10-20); Bilirubin,Total 0.4 mg/dl (0.2-1.0); Calcium 9.2 mg/dl (8.6-10.3); Creatinine Clr Calc Pharmacy 157.9 ml/min; Est GFR (African American) 131.1 ml/min; Est GFR (Non-African American) 113.1 ml/min; Globulin 3.9 gm/dl (2.5-4.0); Potassium 3.6 mmol/L (3.5-5.1); Total Protein 7.4 gm/dl (6.0-8.3)
[2022-09-02 15:05] LABS: Magnesium 1.5 mg/dl (1.7-2.4)
[2022-09-02 15:12] LABS: Troponin I High Sensitivity 13.6 pg/ml (0-14)
[2022-09-02 15:34] LABS: POC Urine Bilirubin Negative (Negative); POC Urine Blood 250 (Negative); POC Urine Glucose Normal (Normal); POC Urine Ketones Negative (Negative); POC Urine Leukocytes Negative (Negative); POC Urine Nitrite Positive (Negative); POC Urine Protein Trace (Negative); POC Urine Urobilinogen Normal (Normal); POC Urine pH 6 (4.5-7.5)
--- NOTE | 2022-09-02 15:49 | Electrocardiogram Report ---
Test Reason : Blood Pressure : / mmHG Vent. Rate : 110 BPM Atrial Rate : 110 BPM P-R Int : 138 ms QRS Dur : 068 ms QT Int : 310 ms P-R-T Axes : 054 039 063 degrees QTc Int : 419 ms Sinus tachycardia Possible Left atrial enlargement Borderline ECG When compared with ECG of 21-AUG-2022 11:10, No significant change was found Confirmed by Taco Steiner ([id number]) on 09/02/2022 3:48:51 PM Referred By: Confirmed By:Taco Steiner
[2022-09-02 15:55] LABS: Partial Thromboplastin Ratio 0.9; Partial Thromboplastin Time 24.7 Seconds (21.0-31.0); Prothrombin Time 10.9 Seconds (9.0-12.0)
[2022-09-02 15:59] LABS: D Dimer 1760 ug/L FEU (0-500)
[2022-09-02] MEDS: MAGNESIUM SULFATE / D5W 1 GM/100 ML BAG IV SCH ×2 (16:18→17:19)
--- NOTE | 2022-09-02 16:18 | OB/GYN Consultation ---
Date of Consultation September 02, 2022 Assessment & Plan (1) Previous section: (2) Pre-eclampsia superimposed on chronic hypertension, antepartum: 37-year-old -0-0-1 at 30 weeks and 3 days of gestation who presented to ER with shortness of breath elevated blood pressure despite taking 300 mg of lab etalol and 90 mg of nifedipine XL in the morning, Recent transfer to [facility] due to increased blood pressures over the weekend August 30 to . She was placed on IV magnesium for seizure prophylaxis and transferred there. She completed steroid series and blood pressures were stable. She was sent home on August 31 with same blood pressure medications. Recent elevated blood pressures was ongoing on shortness of breath, elevated D- dimer, being worked up for PE, CT of chest pending, Blood pressures coming down still elevated with IV labetalol, I discussed with MFM on-call they recommended to admit, observe and increase labetalol to 300mg 3 times daily and up to 400 mg 3 times daily, nifedipine can go up to 120 mg daily. Recommended transfer to [facility] if an ything gets worse. Plan to monitor Mom and baby, await CT of chest and decide for admission here or transfer to [facility]. (3) Shortness of breath: (4) Hypomagnesemia: (5) Decreased movement: (6) Type 2 diabetes mellitus: History of Present Illness History of Present Illness Patient is a 37 yo at 30.3 wks who was in office for BP check and it was elevated at severe range despite she took her blood pressure medications this morning. She has a history of chronic hypertension before first in 2019, when she has not use any blood pressure medication during that . Her blood pressure went up after her first she had been on medications for the last 2 to 3 years not sure exactly. They have been higher during this/current , her medications were recently increased to labetalol 300 twice daily and nifedipine 90 mg XL in the morning. She feels well other than SOB and LE edema which has mary jane going on for 3-4 weeks. No HOPE/Change in vision/ N&V/ Epig or RUQ pain Due to above findings she was sent to ER for further evaluation. She has received 20 mg of IV labetalol here and blood pressures are coming down but still elevated. She is awaiting for CT scan of chest. Her has been complicated by, 1. Chronic hypertension,? Superimposed preeclampsia versus exacerbation of blood pressures, 2. Type 2 diabetes complicating , on insulin pump, 3. Class III obesity, , 4. History of prior , plans for repeat Allergies Allergy/AdvReac Type Severity Reaction Status Date / Time banana Allergy Intermediate swelling Verified 01/25/22 01:58 lisinopril AdvReac Intermediate COUGH Verified 01/25/22 01:58 peach AdvReac Intermediate swelling Verified 01/25/22 01:58 pineapple AdvReac Intermediate swelling Verified 01/25/22 01:58 fruit Allergy Severe Swelling Uncoded 01/25/22 01:59 of Lip/Tongue/Throat Home Medications Medication Instructions Recorded Confirmed Type aspirin 81 mg tablet,delayed 81 mg PO QAM 11/18/18 01/25/22 History release ferrous sulfate 325 mg (65 mg 325 mg PO QAM 11/18/18 01/25/22 History iron) tablet metformin 1,000 mg tablet 1,000 mg PO QAM 11/18/18 01/25/22 History metformin 1,000 mg tablet 1,500 mg PO QPM 11/18/18 01/25/22 History insulin aspart U-100 100 unit/mL 0 unit continuous subcutaneous 01/29/19 01/25/22 History subcutaneous solution (Novolog infusion CONTINOUS U-100 Insulin aspart) albuterol sulfate 90 mcg/actuation 1 puff inhalation Q4H PRN 02/17/21 01/25/22 History aerosol inhaler (Ventolin HFA) Shortness Of Breath multivitamin (Daily Multi-Vitamin 1 tab PO QAM 02/17/21 01/25/22 History tablet) ondansetron HCl 4 mg tablet 4 mg PO Q6H PRN nausea and 02/17/21 01/25/22 Rx (Zofran) vomiting #12 tabs Patient History Medical History Acquired claw toe of left foot Acquired claw toe of right foot Chronic back pain since 2011 Diabetic neuropathy left foot History of PCOS since 2012 HTN (hypertension) for past 6 years; has been on Lisinopril in past but now allergic; also on Atenolol but not on meds currently due to Hx of migraines since age 11 Pain of left foot Type 2 diabetes mellitus for past 8 years; using Insulin pump for past 2 years Type 2 diabetes mellitus with diabetic neuropathy Surgical History History of left salpingo-oophorectomy 2016 Hx of appendectomy age 13 Family History Mother Diabetes Hypertension Stroke Grandmother No problems noted. Father Diabetes Grandmother (Maternal) Diabetes Hypertension Stroke Social History Smoking Status: Former smoker Tobacco Type: Cigarettes Second Hand Exposure: No; Hx Alcohol Use: No Hx Substance Use: No Preferred Language: Palauan Communication Ability: Effective Aircraft Air Conditioning Mechanic Required: No Beliefs That Will Affect Care: None marital status: Single Current Living Situation: Family Feels Safe at Home: Yes Assistive Devices: None Review of Systems Constitutional: as per Subjective / HPI Physical Exam Constitutional: WD/WN, vitals as above well developed, well nourished and + morbidly obese Cardiovascular: RRR, no murmur, no edema Genitourinary: OB Exam Monitor Tracing: + external uterine monitor used and + category I (Based on 140s with minimal variability with episodes of increased moderate ) Continued from above, moderate variability, not meeting criteria for reactivity Results & Data Vital Signs (Past 12 Hours) Vital Signs Temp Pulse Resp BP Pulse Ox O2 Del Method 09/02/22 15:47 99 H 09/02/22 14:37 108 H 24 174/95 H 95 09/02/22 14:18 96 Room Air 09/02/22 14:18 106 H 22 96 Room Air 09/02/22 13:27 36.6 C 108 H 16 191/114 H 94 Room Air Laboratory Results Lab Results 09/02/22 09/02/22 09/02/22 Range/Units 14:12 14:12 14:12 WBC 9.40 (4.8-10.8) K/ul RBC 4.67 (4.20-5.40) M/uL Hgb 10.9 L (12.0-16.0) g/dl Hct 35.0 L (37.0-47.0) % MCV 74.9 L (80.0-100.0) fL MCH 23.3 L (25.0-34.0) pg MCHC 31.1 L (32.0-36.0) g/dL RDW Std Deviation 44.3 (36.4-46.3) fL RDW Coeff of Neftaly 16.7 H (11.5-14.5) % Plt Count 195 (130-400) K/uL MPV 10.7 (9.4-12.4) fL Immature Gran % (Auto) 1.3 % Neut % (Auto) 73.6 % Lymph % (Auto) 16.5 % [place] % (Auto) 7.2 % Eos % (Auto) 1.1 % Baso % (Auto) 0.3 % Neut # (Auto) 6.92 H (1.40-6.50) K/uL Lymph # (Auto) 1.55 (1.2-3.4) K/uL [place] # (Auto) 0.68 H (0.11-0.59) K/uL Eos # (Auto) 0.10 (0-0.50) K/uL Baso # (Auto) 0.03 (0-0.2) K/uL Immature Gran # (Auto) 0.12 (0.01-0.20) K/uL Absolute Nucleated RBC 0.02 (0-0.12) K/uL Nucleated RBC % (auto) 0.2 % PT 10.9 (9.0-12.0) Seconds INR 1.0 (0.9-1.1) APTT 24.7 (21.0-31.0) Seconds PTT Ratio 0.9 D-Dimer 1760 H* (0-500) ug/L FEU Sodium 137 (136-145) mmol/L Potassium 3.6 (3.5-5.1) mmol/L Chloride 104 (98-107) mmol/L Carbon Dioxide 27 (21-32) mmol/L Anion Gap 6 (3-11) BUN 11 (6-23) mg/dl Creatinine 0.67 (0.6-1.2) mg/dl Est Cr Clr Drug Dosing 157.9 ml/min Est GFR ( Amer) 131.1 ml/min Est GFR (Non-Af Amer) 113.1 ml/min BUN/Creatinine Ratio 16.4 (10-20) Glucose 105 H (70-99(Fasting)) mg/dl Calcium 9.2 (8.6-10.3) mg/dl Magnesium 1.5 L (1.7-2.4) mg/dl Total Bilirubin 0.4 (0.2-1.0) mg/dl AST 17 (13-39) U/L ALT 15 (7-52) U/L Alkaline Phosphatase 72 (34-104) U/L Troponin I High Sens 13.6 (0-14) pg/ml Total Protein 7.4 (6.0-8.3) gm/dl Albumin 3.5 (3.4-5.0) gm/dl Globulin 3.9 (2.5-4.0) gm/dl Albumin/Globulin Ratio 0.9 (0.9-2) Lipase 16 (11-82) U/L POC Urine pH (4.5-7.5) POC Urine Protein (Negative) POC Ur Glucose (UA) (Normal) POC Urine Ketones (Negative) POC Urine Blood (Negative) POC Urine Nitrite (Negative) POC Urine Bilirubin (Negative) POC Urine Urobilinogen (Normal) POC U Leukocyte Esteras (Negative) SARS-CoV-2, RNA, NAAT (NEGATIVE) 09/02/22 09/02/22 09/02/22 Range/Units 14:12 14:12 15:27 WBC (4.8-10.8) K/ul RBC (4.20-5.40) M/uL Hgb (12.0-16.0) g/dl Hct (37.0-47.0) % MCV (80.0-100.0) fL MCH (25.0-34.0) pg MCHC (32.0-36.0) g/dL RDW Std Deviation (36.4-46.3) fL RDW Coeff of Neftaly (11.5-14.5) % Plt Count (130-400) K/uL MPV (9.4-12.4) fL Immature Gran % (Auto) % Neut % (Auto) % Lymph % (Auto) % [place] % (Auto) % Eos % (Auto) % Baso % (Auto) % Neut # (Auto) (1.40-6.50) K/uL Lymph # (Auto) (1.2-3.4) K/uL [place] # (Auto) (0.11-0.59) K/uL Eos # (Auto) (0-0.50) K/uL Baso # (Auto) (0-0.2) K/uL Immature Gran # (Auto) (0.01-0.20) K/uL Absolute Nucleated RBC (0-0.12) K/uL Nucleated RBC % (auto) % PT (9.0-12.0) Seconds INR (0.9-1.1) APTT (21.0-31.0) Seconds PTT Ratio D-Dimer Cancelled (0-500) ug/L FEU Sodium (136-145) mmol/L Potassium (3.5-5.1) mmol/L Chloride (98-107) mmol/L Carbon Dioxide (21-32) mmol/L Anion Gap (3-11) BUN (6-23) mg/dl Creatinine (0.6-1.2) mg/dl Est Cr Clr Drug Dosing ml/min Est GFR ( Amer) ml/min Est GFR (Non-Af Amer) ml/min BUN/Creatinine Ratio (10-20) Glucose (70-99(Fasting)) mg/dl Calcium (8.6-10.3) mg/dl Magnesium (1.7-2.4) mg/dl Total Bilirubin (0.2-1.0) mg/dl AST (13-39) U/L ALT (7-52) U/L Alkaline Phosphatase (34-104) U/L Troponin I High Sens (0-14) pg/ml Total Protein (6.0-8.3) gm/dl Albumin (3.4-5.0) gm/dl Globulin (2.5-4.0) gm/dl Albumin/Globulin Ratio (0.9-2) Lipase Cancelled (11-82) U/L POC Urine pH 6 (4.5-7.5) POC Urine Protein Trace H (Negative) POC Ur Glucose (UA) Normal (Normal) POC Urine Ketones Negative (Negative) POC Urine Blood 250 H (Negative) POC Urine Nitrite Positive A (Negative) POC Urine Bilirubin Negative (Negative) POC Urine Urobilinogen Normal (Normal) POC U Leukocyte Esteras Negative (Negative) SARS-CoV-2, RNA, NAAT (NEGATIVE) 09/02/22 Range/Units Unknown WBC (4.8-10.8) K/ul RBC (4.20-5.40) M/uL Hgb (12.0-16.0) g/dl Hct (37.0-47.0) % MCV (80.0-100.0) fL MCH (25.0-34.0) pg MCHC (32.0-36.0) g/dL RDW Std Deviation (36.4-46.3) fL RDW Coeff of Neftaly (11.5-14.5) % Plt Count (130-400) K/uL MPV (9.4-12.4) fL Immature Gran % (Auto) % Neut % (Auto) % Lymph % (Auto) % [place] % (Auto) % Eos % (Auto) % Baso % (Auto) % Neut # (Auto) (1.40-6.50) K/uL Lymph # (Auto) (1.2-3.4) K/uL [place] # (Auto) (0.11-0.59) K/uL Eos # (Auto) (0-0.50) K/uL Baso # (Auto) (0-0.2) K/uL Immature Gran # (Auto) (0.01-0.20) K/uL Absolute Nucleated RBC (0-0.12) K/uL Nucleated RBC % (auto) % PT (9.0-12.0) Seconds INR (0.9-1.1) APTT (21.0-31.0) Seconds PTT Ratio D-Dimer (0-500) ug/L FEU Sodium (136-145) mmol/L Potassium (3.5-5.1) mmol/L Chloride (98-107) mmol/L Carbon Dioxide (21-32) mmol/L Anion Gap (3-11) BUN (6-23) mg/dl Creatinine (0.6-1.2) mg/dl Est Cr Clr Drug Dosing ml/min Est GFR ( Amer) ml/min Est GFR (Non-Af Amer) ml/min BUN/Creatinine Ratio (10-20) Glucose (70-99(Fasting)) mg/dl Calcium (8.6-10.3) mg/dl Magnesium (1.7-2.4) mg/dl Total Bilirubin (0.2-1.0) mg/dl AST (13-39) U/L ALT (7-52) U/L Alkaline Phosphatase (34-104) U/L Troponin I High Sens (0-14) pg/ml Total Protein (6.0-8.3) gm/dl Albumin (3.4-5.0) gm/dl Globulin (2.5-4.0) gm/dl Albumin/Globulin Ratio (0.9-2) Lipase (11-82) U/L POC Urine pH (4.5-7.5) POC Urine Protein (Negative) POC Ur Glucose (UA) (Normal) POC Urine Ketones (Negative) POC Urine Blood (Negative) POC Urine Nitrite (Negative) POC Urine Bilirubin (Negative) POC Urine Urobilinogen (Normal) POC U Leukocyte Esteras (Negative) SARS-CoV-2, RNA, NAAT NEGATIVE (NEGATIVE)
[2022-09-02] MEDS ORDERED: OPTIRAY 320 500ml IV ONE (17:09)
--- NOTE | 2022-09-02 17:24 | CT Scan Report ---
CT ANGIOGRAPHY OF THE CHEST, PULMONARY EMBOLUS PROTOCOL CLINICAL HISTORY: Shortness of breath. 30 weeks . COMPARISON STUDY: Chest radiograph performed earlier today and chest CT January 14, 2013. TECHNIQUE: Following IV administration of 113 mL of Optiray, helical axial images of the chest were o btained utilizing the pulmonary embolus protocol. Maximal intensity projections and sagittal and cor onal reformats were viewed on an independent 3D workstation. IV contrast was administered without co mplication. Automated exposure control was utilized for the study. A dose lowering technique was ut ilized adhering to the principles of ALARA. The abdomen and pelvis were double shielded. CT DOSE: 893.91 mGy.cm FINDINGS: No pulmonary emboli are identified although the segmental and subsegmental pulmonary arter ies are suboptimally assessed due to respiratory motion. There is no thoracic aortic dissection. Size of the heart is normal. There is no pericardial effusion. There are prominent mediastinal and bilate ral hilar lymph nodes. Mild elevation of the right hemidiaphragm is unchanged. There is a trace right pleural effusion. There is no pneumothorax. There are groundglass opacities with mosaic attenuation within the lungs. Minimal alveolar opacities within the left lower lobe are present. Mild interlobula r septal thickening. No acute fractures within the bony thorax are noted. IMPRESSION: 1. No pulmonary emboli identified although segmental and subsegmental pulmonary arteries suboptimally assessed due to artifact. 2. Ground glass opacities with mosaic attenuation within the lungs. This may reflect air trapping. A mild superimposed infectious process cannot be excluded given minimal alveolar opacities within the l eft lower lobe. 3. Interlobular septal thickening. This may reflect mild pulmonary edema. 4. Prominent mediastinal and bilateral hilar lymph nodes which are likely reactive. ACT 112: Negative or not required by law. Electronically signed by: Jeremi Gabriel M.D. 09/02/2022 5:23 PM
[2022-09-02] MEDS ORDERED: OXYTOCIN 30 UNITS/500 ML BAG IV PRN (17:50)
[2022-09-02] MEDS ORDERED: LIDOCAINE 1% LOCAL 20 ML VIAL INFIL PRN (17:50)
[2022-09-02] MEDS ORDERED: LACTATED RINGER'S 1,000 ML IV PRN (17:50)
[2022-09-02] MEDS ORDERED: NIFEdipine EXTENDED REL 30 MG TABCR PO STA (18:21)
[2022-09-02] MEDS: LABETALOL HCL 300 MG TAB PO SCH ×2 (18:42→20:58)
[2022-09-02] MEDS ORDERED: levETIRAcetam 500 MG TAB PO SCH (19:00)
--- NOTE | 2022-09-02 20:17 | Hospitalist Consultation ---
Date of Consultation September 02, 2022 Assessment & Plan (1) Hypoxia: (2) Shortness of breath: This is a 37yo F who is approximately 30 weeks , sent over from the office after having high blood pressure and shortness of breath and evaluation of possible PE. SOB for past few weeks, worsened since discharge home from [place] over the weekend Afebrile, no leukocytosis, HS trop WNL, adding procal Hypoxic to 85% initially and with ambulation, improved to 99% on 2L NC Chest CTA : 1.No pulmonary emboli identified although segmental and subsegmental pulmonary arteries suboptimally assessed due to artifact. 2. Ground glass opacities with mosaic attenuation within the lungs. This may reflect air trapping. A mild superimposed infectious process cannot be excluded given minimal alveolar opacities within the LLL 3. Interlobular septal thickening. This may reflect mild pulmonary edema. 4. Prominent mediastinal and bilateral hilar lymph nodes which are likely reactive. No indication for antibiotics at this time, continue supplemental O2. Currently comfortable at rest Cardiology also consulted, will add routine 2D echo (3) Pre-eclampsia superimposed on chronic hypertension, antepartum: BP initially 191/114. Per discussion between OB and MFM, recommended increasing labetalol to 300mg TID, nifedipine to 120mg daily, can also add hydralazine After additional labetalol 300mg PO, 10mg IV x 2 and nifedipine 30mg, BP improved to 140/93 Hydralazine BID added (4) Third trimester at less than 36 weeks: Being managed by primary service (5) Type 2 diabetes mellitus: Insulin pump, bsg 105 (6) Hypomagnesemia: Replaced in ED per OB service Patient is being admitted by OB service. We will follow the patient with you during their hospital stay. You can reach a member of the [facility] Hospitalist Team 01/12 via [facility]. Patient seen in collaboration with Dr. Hill. Please see addendum. I spent a total of 60 minutes coordinating, documenting, and providing care for this patient excluding time spent in the performance of separately billed services. Supervising Physician Co-Signing Physician Notes Pt is a 37 y/o F who is currently 30 weeks with hx of IDDM, JA, HTN, Migraine consulted for elevated BP Pt was recently admitted to [facility] for HTN urgency and discharged on Labetalol 300mg BID and Nifedipine ER 90mg daily. Per pt she took both medications today. OB spoke to OLIVIA (@ [facility]): They recommended to increase the Labetolol 300mg TID and continue Nifedipine ER 90mg daily. PE: NC in place, NAD Lungs: slightly decreased BS on the R side of the lung with rales, good air entry on the L side Cardiac: Normal S1/S2, with possible cardiac murmur MSK: b/l mild LE pitting edema Psych: AAOx3, normal affect A/P: HTN urgency: -pt received 30mg of Nifedipine and 20mg of IV labetolol -BP is improving -continue Nifedipine ER 90mg daily and Labetolol 300mg TID ---- with prn IV labetolol for elevated BP -recommend getting a procal due to the lung finding -CTA chest: No PE. Ground glass opacities with mosaic attenuation within the lungs. This may reflect air trapping. A mild superimposed infectious process cannot be excluded given minimal alveolar opacities within the left lower lobe. -recommend getting an echo ---- since BP is improving no need for cardiology consultation at this time ---- If BP worsens with current regimen then recommend increasing the lebatolol to 400mg TID and then consider cardiology consultation -per Dr. Chew pt will be admitted to OB service and monitor overnight Other chronic conditions plan as above Agree with A/P by Bailee Casillas PA-C History of Present Illness Reason for Consultation: Elevated blood pressure Requesting Physician: Dr. Chew History of Present Illness This is a 37yo F who is approximately 30 weeks , sent over from the office after having high blood pressure and shortness of breath and evaluation of possible PE. Has had ongoing issues with elevated blood pressure and was recently transferred to [facility] over the weekend and placed on IV magnesium for seizure prophylaxis. Was noted per [place] notes to be noncompliant with medication regimen and was resumed on labetalol 300 mg twice daily and nifedipine 90 mg daily with improved pressures and was subsequently discharged home. Patient states she felt well for a day but then developed shortness of breath again, worse with exertion. Swelling in BLE improved since over the weekend. Denies any recent viral illnesses or known sick contacts. Patient feels comfortable at rest and denies any shortness of breath. Was evaluated by [facility] in the ED, who discussed with [facility] at [place], who recommended increasing labetalol to 300 mg 3 times daily and nifedipine up to 120 mg daily. Discussion between OB services about potential transfer to [facility] when we were consulted to evaluate SOB. Denies any fever, chills, lightheadedness, visual changes, CP, wheezing, N/V, abdominal pain, dysuria or diarrhea. Allergies Allergy/AdvReac Type Severity Reaction Status Date / Time banana Allergy Intermediate swelling Verified 01/25/22 01:58 lisinopril AdvReac Intermediate COUGH Verified 01/25/22 01:58 peach AdvReac Intermediate swelling Verified 01/25/22 01:58 pineapple AdvReac Intermediate swelling Verified 01/25/22 01:58 fruit Allergy Severe Swelling Uncoded 01/25/22 01:59 of Lip/Tongue/Throat Home Medications Medication Instructions Recorded Confirmed Type aspirin 81 mg tablet,delayed 81 mg PO QAM 11/18/18 01/25/22 History release ferrous sulfate 325 mg (65 mg 325 mg PO QAM 11/18/18 01/25/22 History iron) tablet metformin 1,000 mg tablet 1,000 mg PO QAM 11/18/18 01/25/22 History metformin 1,000 mg tablet 1,500 mg PO QPM 11/18/18 01/25/22 History insulin aspart U-100 100 unit/mL 0 unit continuous subcutaneous 01/29/19 01/25/22 History subcutaneous solution (Novolog infusion CONTINOUS U-100 Insulin aspart) albuterol sulfate 90 mcg/actuation 1 puff inhalation Q4H PRN 02/17/21 01/25/22 History aerosol inhaler (Ventolin HFA) Shortness Of Breath multivitamin (Daily Multi-Vitamin 1 tab PO QAM 02/17/21 01/25/22 History tablet) ondansetron HCl 4 mg tablet 4 mg PO Q6H PRN nausea and 02/17/21 01/25/22 Rx (Zofran) vomiting #12 tabs Patient History Medical History Acquired claw toe of left foot Acquired claw toe of right foot Chronic back pain since 2011 Diabetic neuropathy left foot History of PCOS since 2012 HTN (hypertension) for past 6 years; has been on Lisinopril in past but now allergic; also on Atenolol but not on meds currently due to Hx of migraines since age 11 Pain of left foot Type 2 diabetes mellitus for past 8 years; using Insulin pump for past 2 years Type 2 diabetes mellitus with diabetic neuropathy Surgical History History of left salpingo-oophorectomy 2016 Hx of appendectomy age 13 Family History Mother Diabetes Hypertension Stroke Grandmother No problems noted. Father Diabetes Grandmother (Maternal) Diabetes Hypertension Stroke Social History Smoking Status: Former smoker Tobacco Type: Cigarettes Second Hand Exposure: No; Hx Alcohol Use: No Hx Substance Use: No Preferred Language: Mongolian Communication Ability: Effective Yard Pilot Required: No Beliefs That Will Affect Care: None marital status: Single Current Living Situation: Family Feels Safe at Home: Yes Assistive Devices: None Review of Systems Review of Systems: At least ten systems reviewed and negative except as noted in the HPI. Physical Exam Physical Exam: Please see Dr. Hill's addendum for physical exam. Results & Data Results & Data Vital Signs (Past 12 Hours) Vital Signs Temp Pulse Resp BP Pulse Ox O2 Del Method O2 Flow Rate 09/02/22 19:44 99 H 09/02/22 19:28 98 H 29 H 157/92 H 98 Nasal Cannula 2 09/02/22 18:33 100 H 36 H 173/100 H 99 09/02/22 18:15 106 H 30 H 179/103 H 97 Nasal Cannula 2 09/02/22 17:30 100 H 34 H 147/96 H 99 Nasal Cannula 2 09/02/22 17:20 101 H 26 H 162/96 H 99 09/02/22 16:27 103 H 27 H 153/96 H 96 09/02/22 16:00 99 H 23 166/93 H 95 09/02/22 15:30 98 H 26 H 151/92 H 09/02/22 16:35 85 L Room Air 09/02/22 16:35 104 H 34 H 85 L Room Air 09/02/22 15:47 99 H 09/02/22 14:37 108 H 24 174/95 H 95 09/02/22 14:18 96 Room Air 09/02/22 14:18 106 H 22 96 Room Air 09/02/22 13:27 36.6 C 108 H 16 191/114 H 94 Room Air Laboratory Results Short CBC 09/02/22 Range/Units 14:12 WBC 9.40 (4.8-10.8) K/ul Hgb 10.9 L (12.0-16.0) g/dl Hct 35.0 L (37.0-47.0) % Plt Count 195 (130-400) K/uL BMP 09/02/22 14:12 Sodium 137 Potassium 3.6 Chloride 104 Carbon Dioxide 27 BUN 11 Creatinine 0.67 Glucose 105 H Calcium 9.2 Liver Function 09/02/22 Range/Units 14:12 Total Bilirubin 0.4 (0.2-1.0) mg/dl AST 17 (13-39) U/L ALT 15 (7-52) U/L Alkaline Phosphatase 72 (34-104) U/L Albumin 3.5 (3.4-5.0) gm/dl Diagnostic Findings Chest X-Ray 09/02/22 14:07 XR chest 1V portable CLINICAL HISTORY: sob, preg, shield abd TECHNIQUE: Single frontal radiograph of the chest was obtained. Comparison: Comparison is made to chest radiograph 08/21/2022 FINDINGS: Exam is limited by underpenetration. The cardiomediastinal silhouette is stable. Elevation of right hemidiaphragm is seen. No evidence of pleural effusion or pneumothorax. IMPRESSION: No acute abnormalities and in particular no radiographic evidence of pneumonia. ACT 112: Negative or not required by law. Electronically signed by: Haris Marinelli M.D. 09/02/2022 2:43 PM Chest CTA 09/02/22 16:06 CT ANGIOGRAPHY OF THE CHEST, PULMONARY EMBOLUS PROTOCOL CLINICAL HISTORY: Shortness of breath. 30 weeks . COMPARISON STUDY: Chest radiograph performed earlier today and chest CT January 14, 2013. TECHNIQUE: Following IV administration of 113 mL of Optiray, helical axial images of the chest were obtained utilizing the pulmonary embolus protocol. Maximal intensity projections and sagittal and coronal reformats were viewed on an independent 3D workstation. IV contrast was administered without complication. Automated exposure control was utilized for the study. A dose lowering technique was utilized adhering to the principles of ALARA. The abdomen and pelvis were double shielded. CT DOSE: 893.91 mGy.cm FINDINGS: No pulmonary emboli are identified although the segmental and subsegmental pulmonary arteries are suboptimally assessed due to respiratory motion. There is no thoracic aortic dissection. Size of the heart is normal. There is no pericardial effusion. There are prominent mediastinal and bilateral hilar lymph nodes. Mild elevation of the right hemidiaphragm is unchanged. There is a trace right pleural effusion. There is no pneumothorax. There are groundgla ss opacities with mosaic attenuation within the lungs. Minimal alveolar opacities within the left lower lobe are present. Mild interlobular septal thickening. No acute fractures within the bony thorax are noted. IMPRESSION: 1. No pulmonary emboli identified although segmental and subsegmental pulmonary arteries suboptimally assessed due to artifact. 2. Ground glass opacities with mosaic attenuation within the lungs. This may reflect air trapping. A mild superimposed infectious process cannot be excluded given minimal alveolar opacities within the left lower lobe. 3. Interlobular septal thickening. This may reflect mild pulmonary edema. 4. Prominent mediastinal and bilateral hilar lymph nodes which are likely reactive. ACT 112: Negative or not required by law. Electronically signed by: Jeremi Gabriel M.D. 09/02/2022 5:23 PM
--- NOTE | 2022-09-02 20:45 | Obstetrical Progress Note ---
Date of Service September 02, 2022 Subjective Patient has been in ER Had one time SOB after ambulation and Pulse ox went down to 86 % and then went back up to 96-99 % 2lt O2 Then was off of O2 and still WNL BP's have been labile Received 20 mg of IV Labetalol total and then 300 mg PO and Nifedipine XR 30 mg at 6 ; 40 pm I consulted MFM and OB at [facility], they wanted her stable for transfer ER team and Hospitalist agreed that she was stable enough to transfer in helikopter but OB concert singer at [facility] did not accept her even after 2nd call from me. I have sent her all of the NST / monitoring pictures. FHR 140's and became reactive after PO Hydration. Mom feels better now, normal breathing and no SOB after last BR use BP improved Plan to observe her and baby here at PCU/ Telemedicine overnight. Consulted cardiology as well. He agrees with above. Results & Data Vital Signs (Past 12 Hours) Vital Signs Temp Pulse Resp BP Pulse Ox O2 Del Method O2 Flow Rate 09/02/22 20:00 96 H 33 H 140/93 99 Nasal Cannula 2 09/02/22 19:44 99 H 09/02/22 19:28 98 H 29 H 157/92 H 98 Nasal Cannula 2 09/02/22 18:33 100 H 36 H 173/100 H 99 09/02/22 18:15 106 H 30 H 179/103 H 97 Nasal Cannula 2 09/02/22 17:30 100 H 34 H 147/96 H 99 Nasal Cannula 2 09/02/22 17:20 101 H 26 H 162/96 H 99 09/02/22 16:27 103 H 27 H 153/96 H 96 09/02/22 16:00 99 H 23 166/93 H 95 09/02/22 15:30 98 H 26 H 151/92 H 09/02/22 16:35 85 L Room Air 09/02/22 16:35 104 H 34 H 85 L Room Air 09/02/22 15:47 99 H 09/02/22 14:37 108 H 24 174/95 H 95 09/02/22 14:18 96 Room Air 09/02/22 14:18 106 H 22 96 Room Air 09/02/22 13:27 36.6 C 108 H 16 191/114 H 94 Room Air
[2022-09-02] MEDS ORDERED: hydrALAZINE 10 MG TAB PO SCH (21:00)
--- NOTE | 2022-09-02 21:50 | Cardiology Consultation ---
Date of Consultation September 02, 2022 Assessment & Plan (1) Pre-eclampsia superimposed on chronic hypertension, antepartum: (2) Hypertensive urgency: Plan 37-year-old female at 30 weeks gestation presenting with signs and symptoms of hypertensive urgency and preeclampsia. Transient compromise on initial evaluation now improved with initiation of oxygen and increased antihypertensive therapies Discussed with all parties involved including hospitalist, OB. Patient currentl y hemodynamically stable although blood pressure could be better optimized Additional dose labetalol 40 mg p.o. to be given at midnight. Would continue 3 times daily dosing as well as prior nifedipine If hemodynamics allow would give additional dose of furosemide 20 mg IV in a.m. We will review echocardiogram as available Discussed with OB in [place] as well or willing to accept patient in transfer if any further signs of clinical decline History of Present Illness Reason for Consultation: Hypertension, hypertensive urgency, preeclampsia Requesting Physician: Dr. Chew History of Present Illness Patient is a 37-year-old female at 30 weeks gestation, G2, P1 with underlying issues which include 1. Morbid obesity 2. Longstanding hypertension, predating 3. Obstructive sleep apnea, untreated 4. Type 2 diabetes mellitus, insulin requiring 5. 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 Polycystic ovarian disease Patient today referred to the ER from check with marked hypertension blood pressure 162/110 despite compliance with medications. Recent history of hospitalization [facility] [place] 08/30/2022 with signs and symptoms of preeclampsia, hypertension. No adjustments made medical therapies Concerns raised on initial presentation regarding activity which per report has improved. Blood pressures in ER have improved since additional dosing of labetalol, nifedipine and IV hydralazine x2 Currently comfortable without acute complaint. activity monitor improved Current oxygenation good 99% on 2 L nasal cannula Chest x-ray without pulmonary edema though with mild increase in plethoric markings consistent with patient's body habitus Patient denies fevers chills sweats. No bleeding difficulties. No difficulty with urination with notable increased urination over the past 1 to 2 days. Does not use CPAP but notes plans for refitting in the next several months following repeat sleep trial Weight up approximately 4 pounds since hospitalization 08/29/2022 Moderate lower extremity and upper extremity edema per patient but improved. Evaluation in ER since presentation including chest x-ray without edema, infiltrate or pneumonia, CTA of chest due to elevated D-dimer without evidence of pulmonary embolus or infiltrate. Allergies Allergy/AdvReac Type Severity Reaction Status Date / Time banana Allergy Intermediate swelling Verified 01/25/22 01:58 lisinopril AdvReac Intermediate COUGH Verified 01/25/22 01:58 peach AdvReac Intermediate swelling Verified 01/25/22 01:58 pineapple AdvReac Intermediate swelling Verified 01/25/22 01:58 fruit Allergy Severe Swelling Uncoded 01/25/22 01:59 of Lip/Tongue/Throat Home Medications Medication Instructions Recorded Confirmed Type aspirin 81 mg tablet,delayed 81 mg PO QAM 11/18/18 01/25/22 History release ferrous sulfate 325 mg (65 mg 325 mg PO QAM 11/18/18 01/25/22 History iron) tablet metformin 1,000 mg tablet 1,000 mg PO QAM 11/18/18 01/25/22 History metformin 1,000 mg tablet 1,500 mg PO QPM 11/18/18 01/25/22 History insulin aspart U-100 100 unit/mL 0 unit continuous subcutaneous 01/29/19 01/25/22 History subcutaneous solution (Novolog infusion CONTINOUS U-100 Insulin aspart) albuterol sulfate 90 mcg/actuation 1 puff inhalation Q4H PRN 02/17/21 01/25/22 History aerosol inhaler (Ventolin HFA) Shortness Of Breath multivitamin (Daily Multi-Vitamin 1 tab PO QAM 02/17/21 01/25/22 History tablet) ondansetron HCl 4 mg tablet 4 mg PO Q6H PRN nausea and 02/17/21 01/25/22 Rx (Zofran) vomiting #12 tabs Patient History Medical History Acquired claw toe of left foot Acquired claw toe of right foot Chronic back pain since 2011 Diabetic neuropathy left foot History of PCOS since 2013 HTN (hypertension) for past 6 years; has been on Lisinopril in past but now allergic; also on Atenolol but not on meds currently due to Hx of migraines since age 11 Pain of left foot Type 2 diabetes mellitus for past 8 years; using Insulin pump for past 2 years Type 2 diabetes mellitus with diabetic neuropathy Surgical History History of left salpingo-oophorectomy 2016 Hx of appendectomy age 13 Family History Mother Diabetes Hypertension Stroke Grandmother No problems noted. Father Diabetes Grandmother (Maternal) Diabetes Hypertension Stroke Social History Smoking Status: Former smoker Tobacco Type: Cigarettes Second Hand Exposure: No; Hx Alcohol Use: No Hx Substance Use: No Preferred Language: Chinese Communication Ability: Effective Tailoring Teacher Required: No Beliefs That Will Affect Care: None marital status: Single Current Living Situation: Family Feels Safe at Home: Yes Assistive Devices: None Physical Exam Constitutional: + obese; no acute distress Eyes: PERRL, conjunctivae normal, anicteric sclerae ENMT: external ear and nose normal, oropharynx normal Neck: trachea midline, no thyromegaly Respiratory: normal respiratory effort, lungs clear to auscultation Auscultation: + diminished lung sounds Cardiovascular: Rate/Rhythm: regular rate and regular rhythm Heart Sounds: normal S1 and normal S2; no murmur Extremities: + edema (1-2+ diffusely) Gastrointestinal (Abdomen): normal bowel sounds, soft, nontender, no hepatosplenomegaly Musculoskeletal: no cyanosis or clubbing, extremities motor strength 5/5 Results & Data Vital Signs (Past 12 Hours) Vital Signs Temp Pulse Resp BP Pulse Ox O2 Del Method O2 Flow Rate 09/02/22 21:30 90 30 H 146/101 H 99 09/02/22 21:00 88 30 H 163/98 H 98 Nasal Cannula 2 09/02/22 20:30 93 H 34 H 149/98 H 98 Nasal Cannula 2 09/02/22 20:00 96 H 33 H 140/93 99 Nasal Cannula 2 09/02/22 19:44 99 H 09/02/22 19:28 98 H 29 H 157/92 H 98 Nasal Cannula 2 09/02/22 18:33 100 H 36 H 173/100 H 99 09/02/22 18:15 106 H 30 H 179/103 H 97 Nasal Cannula 2 09/02/22 17:30 100 H 34 H 147/96 H 99 Nasal Cannula 2 09/02/22 17:20 101 H 26 H 162/96 H 99 09/02/22 16:27 103 H 27 H 153/96 H 96 09/02/22 16:00 99 H 23 166/93 H 95 09/02/22 15:30 98 H 26 H 151/92 H 09/02/22 16:35 85 L Room Air 09/02/22 16:35 104 H 34 H 85 L Room Air 09/02/22 15:47 99 H 09/02/22 14:37 108 H 24 174/95 H 95 09/02/22 14:18 96 Room Air 09/02/22 14:18 106 H 22 96 Room Air 09/02/22 13:27 36.6 C 108 H 16 191/114 H 94 Room Air Laboratory Results Laboratory Results - last 24 hr 09/02/22 09/02/22 09/02/22 14:12 14:12 14:12 WBC 9.40 RBC 4.67 Hgb 10.9 L Hct 35.0 L MCV 74.9 L MCH 23.3 L MCHC 31.1 L RDW Std Deviation 44.3 RDW Coeff of Neftaly 16.7 H Plt Count 195 MPV 10.7 Immature Gran % (Auto) 1.3 Neut % (Auto) 73.6 Lymph % (Auto) 16.5 [place] % (Auto) 7.2 Eos % (Auto) 1.1 Baso % (Auto) 0.3 Neut # (Auto) 6.92 H Lymph # (Auto) 1.55 [place] # (Auto) 0.68 H Eos # (Auto) 0.10 Baso # (Auto) 0.03 Immature Gran # (Auto) 0.12 Absolute Nucleated RBC 0.02 Nucleated RBC % (auto) 0.2 PT 10.9 INR 1.0 APTT 24.7 PTT Ratio 0.9 D-Dimer 1760 H* Sodium 137 Potassium 3.6 Chloride 104 Carbon Dioxide 27 Anion Gap 6 BUN 11 Creatinine 0.67 Est Cr Clr Drug Dosing 157.9 Est GFR ( Amer) 131.1 Est GFR (Non-Af Amer) 113.1 BUN/Creatinine Ratio 16.4 Glucose 105 H POC Glucose Calcium 9.2 Magnesium 1.5 L Total Bilirubin 0.4 AST 17 ALT 15 Alkaline Phosphatase 72 Troponin I High Sens 13.6 Total Protein 7.4 Albumin 3.5 Globulin 3.9 Albumin/Globulin Ratio 0.9 Lipase 16 Procalcitonin POC Urine pH POC Urine Protein POC Ur Glucose (UA) POC Urine Ketones POC Urine Blood POC Urine Nitrite POC Urine Bilirubin POC Urine Urobilinogen POC U Leukocyte Esteras SARS-CoV-2, RNA, NAAT Blood Type Antibody Screen 09/02/22 09/02/22 09/02/22 14:12 14:12 15:27 WBC RBC Hgb Hct MCV MCH MCHC RDW Std Deviation RDW Coeff of Neftaly Plt Count MPV Immature Gran % (Auto) Neut % (Auto) Lymph % (Auto) [place] % (Auto) Eos % (Auto) Baso % (Auto) Neut # (Auto) Lymph # (Auto) [place] # (Auto) Eos # (Auto) Baso # (Auto) Immature Gran # (Auto) Absolute Nucleated RBC Nucleated RBC % (auto) PT INR APTT PTT Ratio D-Dimer Cancelled Sodium Potassium Chloride Carbon Dioxide Anion Gap BUN Creatinine Est Cr Clr Drug Dosing Est GFR ( Amer) Est GFR (Non-Af Amer) BUN/Creatinine Ratio Glucose POC Glucose Calcium Magnesium Total Bilirubin AST ALT Alkaline Phosphatase Troponin I High Sens Total Protein Albumin Globulin Albumin/Globulin Ratio Lipase Cancelled Procalcitonin POC Urine pH 6 POC Urine Protein Trace H POC Ur Glucose (UA) Normal POC Urine Ketones Negative POC Urine Blood 250 H POC Urine Nitrite Positive A POC Urine Bilirubin Negative POC Urine Urobilinogen Normal POC U Leukocyte Esteras Negative SARS-CoV-2, RNA, NAAT Blood Type Antibody Screen 09/02/22 09/02/22 09/02/22 16:26 18:32 21:09 WBC RBC Hgb Hct MCV MCH MCHC RDW Std Deviation RDW Coeff of Neftaly Plt Count MPV Immature Gran % (Auto) Neut % (Auto) Lymph % (Auto) [place] % (Auto) Eos % (Auto) Baso % (Auto) Neut # (Auto) Lymph # (Auto) [place] # (Auto) Eos # (Auto) Baso # (Auto) Immature Gran # (Auto) Absolute Nucleated RBC Nucleated RBC % (auto) PT INR APTT PTT Ratio D-Dimer Sodium Potassium Chloride Carbon Dioxide Anion Gap BUN Creatinine Est Cr Clr Drug Dosing Est GFR ( Amer) Est GFR (Non-Af Amer) BUN/Creatinine Ratio Glucose POC Glucose 105 H 110 H Calcium Magnesium Total Bilirubin AST ALT Alkaline Phosphatase Troponin I High Sens Total Protein Albumin Globulin Albumin/Globulin Ratio Lipase Procalcitonin POC Urine pH POC Urine Protein POC Ur Glucose (UA) POC Urine Ketones POC Urine Blood POC Urine Nitrite POC Urine Bilirubin POC Urine Urobilinogen POC U Leukocyte Esteras SARS-CoV-2, RNA, NAAT Blood Type B Positive Antibody Screen NEGATIVE 09/02/22 09/02/22 Unknown Unknown WBC RBC Hgb Hct MCV MCH MCHC RDW Std Deviation RDW Coeff of Neftaly Plt Count MPV Immature Gran % (Auto) Neut % (Auto) Lymph % (Auto) [place] % (Auto) Eos % (Auto) Baso % (Auto) Neut # (Auto) Lymph # (Auto) [place] # (Auto) Eos # (Auto) Baso # (Auto) Immature Gran # (Auto) Absolute Nucleated RBC Nucleated RBC % (auto) PT INR APTT PTT Ratio D-Dimer Sodium Potassium Chloride Carbon Dioxide Anion Gap BUN Creatinine Est Cr Clr Drug Dosing Est GFR ( Amer) Est GFR (Non-Af Amer) BUN/Creatinine Ratio Glucose POC Glucose Calcium Magnesium Total Bilirubin AST ALT Alkaline Phosphatase Troponin I High Sens Total Protein Albumin Globulin Albumin/Globulin Ratio Lipase Procalcitonin Pending POC Urine pH POC Urine Protein POC Ur Glucose (UA) POC Urine Ketones POC Urine Blood POC Urine Nitrite POC Urine Bilirubin POC Urine Urobilinogen POC U Leukocyte Esteras SARS-CoV-2, RNA, NAAT NEGATIVE Blood Type Antibody Screen
[2022-09-02] MEDS ORDERED: ALBUTEROL HFA 8 GM INHALER INH PRN (22:26)
[2022-09-02] MEDS ORDERED: metFORMIN HCL 500 MG TAB PO SCH (22:26)
--- NOTE | 2022-09-02 22:35 | Obstetrical Progress Note ---
Date of Service September 02, 2022 Assessment & Plan Admission and Anticipated Discharge Date Admission Date: September 02, 2022 Subjective Patient is reevaluated, she is in her new room now, 451 She feels much better. Baby has been moving a lot. No CP/SOB/ HOPE/Change in vision/ N&V She is hungry and wants to eat. FHR had been reactive, with multiple accels and moderate variability, no decels Appreciated medicine and cardiology consultation, BP meds adjusted and increased to Labetalol 400 mg tid. Continue to monitor closely Results & Data Vital Signs (Past 12 Hours) Vital Signs Temp Pulse Pulse Resp BP BP Pulse Ox 09/02/22 22:18 36.6 C 91 H 18 159/115 H 98 09/02/22 21:30 90 30 H 146/101 H 99 09/02/22 21:00 88 30 H 163/98 H 98 09/02/22 20:30 93 H 34 H 149/98 H 98 09/02/22 20:00 96 H 33 H 140/93 99 09/02/22 19:44 99 H 09/02/22 19:28 98 H 29 H 157/92 H 98 09/02/22 18:33 100 H 36 H 173/100 H 99 09/02/22 18:15 106 H 30 H 179/103 H 97 09/02/22 17:30 100 H 34 H 147/96 H 99 09/02/22 17:20 101 H 26 H 162/96 H 99 09/02/22 16:27 103 H 27 H 153/96 H 96 09/02/22 16:00 99 H 23 166/93 H 95 09/02/22 15:30 98 H 26 H 151/92 H 09/02/22 16:35 85 L 09/02/22 16:35 104 H 34 H 85 L 09/02/22 15:47 99 H 09/02/22 14:37 108 H 24 174/95 H 95 09/02/22 14:18 96 09/02/22 14:18 106 H 22 96 09/02/22 13:27 36.6 C 108 H 16 191/114 H 94 O2 Del Method O2 Flow Rate 09/02/22 22:18 Nasal Cannula 2 09/02/22 21:30 09/02/22 21:00 Nasal Cannula 2 09/02/22 20:30 Nasal Cannula 2 09/02/22 20:00 Nasal Cannula 2 09/02/22 19:44 09/02/22 19:28 Nasal Cannula 2 09/02/22 18:33 09/02/22 18:15 Nasal Cannula 2 09/02/22 17:30 Nasal Cannula 2 09/02/22 17:20 09/02/22 16:27 09/02/22 16:00 09/02/22 15:30 09/02/22 16:35 Room Air 09/02/22 16:35 Room Air 09/02/22 15:47 09/02/22 14:37 09/02/22 14:18 Room Air 09/02/22 14:18 Room Air 09/02/22 13:27 Room Air
[2022-09-02] MEDS ORDERED: ONDANSETRON 4 MG OD TAB PO PRN (22:48)
[2022-09-03] MEDS ORDERED: LABETALOL HCL 200 MG TAB PO ONE
[2022-09-03] MEDS ORDERED: LACTATED RINGER'S 500 ML IV ONE (01:50)
--- NOTE | 2022-09-03 02:00 | Obstetrical Progress Note ---
Date of Service September 03, 2022 Assessment & Plan Admission and Anticipated Discharge Date Admission Date: September 02, 2022 Subjective I was called by OB nurse that she is sleeping and CPAP is on the face ordered by Cariology Repeat NST showed baseline of 140, minimal variability, no accels and variable decels to 100's with quick recovery. Her BP stable 144/ 81 Pulse 89 Pulse ox 94 % on CPAP with no O2, we connected to 5 lt O2 and it came up to 100% I am calling [facility] for transfer since [facility] has not accepted transfer despite multiple trials. I will sign the note since meditech is going to be down in a minute. Results & Data Vital Signs (Past 12 Hours) Vital Signs Temp Pulse Pulse Resp BP BP Pulse Ox 09/02/22 22:49 96 H 09/02/22 22:26 09/02/22 23:54 103 H 23 92 09/02/22 22:18 36.6 C 91 H 18 159/115 H 98 09/02/22 21:30 90 30 H 146/101 H 99 09/02/22 21:00 88 30 H 163/98 H 98 09/02/22 20:30 93 H 34 H 149/98 H 98 09/02/22 20:00 96 H 33 H 140/93 99 09/02/22 19:44 99 H 09/02/22 19:28 98 H 29 H 157/92 H 98 09/02/22 18:33 100 H 36 H 173/100 H 99 09/02/22 18:15 106 H 30 H 179/103 H 97 09/02/22 17:30 100 H 34 H 147/96 H 99 09/02/22 17:20 101 H 26 H 162/96 H 99 09/02/22 16:27 103 H 27 H 153/96 H 96 09/02/22 16:00 99 H 23 166/93 H 95 09/02/22 15:30 98 H 26 H 151/92 H 09/02/22 16:35 85 L 09/02/22 16:35 104 H 34 H 85 L 09/02/22 15:47 99 H 09/02/22 14:37 108 H 24 174/95 H 95 09/02/22 14:18 96 09/02/22 14:18 106 H 22 96 O2 Del Method O2 Flow Rate FiO2 09/02/22 22:49 09/02/22 22:26 Nasal Cannula 2 09/02/22 23:54 21 09/02/22 22:18 Nasal Cannula 2 09/02/22 21:30 09/02/22 21:00 Nasal Cannula 2 09/02/22 20:30 Nasal Cannula 2 09/02/22 20:00 Nasal Cannula 2 09/02/22 19:44 09/02/22 19:28 Nasal Cannula 2 09/02/22 18:33 09/02/22 18:15 Nasal Cannula 2 09/02/22 17:30 Nasal Cannula 2 09/02/22 17:20 09/02/22 16:27 09/02/22 16:00 09/02/22 15:30 09/02/22 16:35 Room Air 09/02/22 16:35 Room Air 09/02/22 15:47 09/02/22 14:37 09/02/22 14:18 Room Air 09/02/22 14:18 Room Air
--- NOTE | 2022-09-03 02:47 | Obstetrical Progress Note ---
Date of Service September 03, 2022 Assessment & Plan Admission and Anticipated Discharge Date Admission Date: September 02, 2022 Subjective I have called transfer center at [facility] and they accepted her. Dr Lopez and his team, will send a [facility]opter for transfer. Patient understands all and agreed with transfer, signed an informed consent. NST 140's with minimal to moderate variability, no decels, no accels. Bed side US done by myself: single IUP, FHR 140's, Vertex, Placenta fundal, SIDNEY 9.8 cm, good tone, multiple breathing and movements seen. BPP 8/10. Continue to monitor closely until [facility]opter arrives. Results & Data Vital Signs (Past 12 Hours) Vital Signs Temp Pulse Pulse Resp BP BP Pulse Ox 09/02/22 22:49 96 H 09/02/22 22:26 09/02/22 23:54 103 H 23 92 09/02/22 22:18 36.6 C 91 H 18 159/115 H 98 09/02/22 21:30 90 30 H 146/101 H 99 09/02/22 21:00 88 30 H 163/98 H 98 09/02/22 20:30 93 H 34 H 149/98 H 98 09/02/22 20:00 96 H 33 H 140/93 99 09/02/22 19:44 99 H 09/02/22 19:28 98 H 29 H 157/92 H 98 09/02/22 18:33 100 H 36 H 173/100 H 99 09/02/22 18:15 106 H 30 H 179/103 H 97 09/02/22 17:30 100 H 34 H 147/96 H 99 09/02/22 17:20 101 H 26 H 162/96 H 99 09/02/22 16:27 103 H 27 H 153/96 H 96 09/02/22 16:00 99 H 23 166/93 H 95 09/02/22 15:30 98 H 26 H 151/92 H 09/02/22 16:35 85 L 09/02/22 16:35 104 H 34 H 85 L 09/02/22 15:47 99 H O2 Del Method O2 Flow Rate FiO2 09/02/22 22:49 09/02/22 22:26 Nasal Cannula 2 09/02/22 23:54 21 09/02/22 22:18 Nasal Cannula 2 09/02/22 21:30 09/02/22 21:00 Nasal Cannula 2 09/02/22 20:30 Nasal Cannula 2 09/02/22 20:00 Nasal Cannula 2 09/02/22 19:44 09/02/22 19:28 Nasal Cannula 2 09/02/22 18:33 09/02/22 18:15 Nasal Cannula 2 09/02/22 17:30 Nasal Cannula 2 09/02/22 17:20 09/02/22 16:27 09/02/22 16:00 09/02/22 15:30 09/02/22 16:35 Room Air 09/02/22 16:35 Room Air 09/02/22 15:47
[2022-09-03] MEDS ORDERED: metFORMIN HCL 500 MG TAB PO SCH (07:30)
[2022-09-03] MEDS ORDERED: LABETALOL HCL 200 MG TAB PO SCH (09:00)
[2022-09-03] MEDS ORDERED: MULTIVITAMIN TAB PO SCH (09:00)
[2022-09-03] MEDS ORDERED: ASPIRIN 81 MG ECTAB PO SCH (09:00)
[2022-09-03] MEDS ORDERED: FERROUS SULFATE 325 MG TAB PO SCH (09:00)
[2022-09-03] MEDS ORDERED: NIFEdipine EXTENDED REL 30 MG TABCR PO SCH (09:00)
== END 2022-09-03 03:30 | disposition short-term general hospital (02) | DRG 832 ==
LOC: ED 13:21 → 4W 17:51

== ENCOUNTER 2023-07-28 18:43 | Inpatient (IN) ==
--- NOTE | 2023-07-28 19:41 | XRay Report ---
SINGLE VIEW CHEST CLINICAL HISTORY: Cough FINDINGS: A PA chest radiograph is compared to study dated 07/15/2023. The cardiomediastinal silhouette is unremarkable. There is chronic elevation of the right hemidiaphragm and mild bibasilar atelectasi s. The lungs and pleural spaces are otherwise clear. No pneumothorax is seen. The bony thorax is crow sly intact. IMPRESSION: No active disease in the chest. ACT 112: Negative or not required by law. Electronically signed by: Kareem Infante M.D. 07/28/2023 7:40 PM
[2023-07-28 20:00] LABS: Adenovirus PCR Not Detected (NotDetected); Bordetella parapertussis PCR Not Detected (NotDetected); Bordetella pertussis PCR Not Detected (NotDetected); Chlamydia pneumoniae PCR Not Detected (NotDetected); Coronavirus 229E PCR Not Detected (NotDetected); Coronavirus CoV-2 (COVID19)PCR Not Detected (NotDetected); Coronavirus HKU1 PCR Not Detected (NotDetected); Coronavirus NL63 PCR Not Detected (NotDetected); Coronavirus OC43PCR Not Detected (NotDetected); Human Metapneumovirus PCR Not Detected (NotDetected); Influenza A PCR Not Detected (NotDetected); Influenza B PCR Not Detected (NotDetected); Mycoplasma pneumoniae PCR Not Detected (NotDetected); Parainfluenza Virus 1 PCR Not Detected (NotDetected); Parainfluenza Virus 2 PCR Not Detected (NotDetected); Parainfluenza Virus 3 PCR Not Detected (NotDetected); Parainfluenza Virus 4 PCR Not Detected (NotDetected); Respiratory Syncytial VirusPCR Not Detected (NotDetected); Rhinovirus/Enterovirus PCR Not Detected (NotDetected)
[2023-07-28] MEDS: ALBUT/IPRATROP 3MG/0.5MG NEB 3 ML VIAL NEB STA (20:49)
[2023-07-28] MEDS: methylPREDNISolone 125 MG/2 ML VIAL IV STA (20:50)
[2023-07-28 20:53] LABS: HCO3 VBG 26 mmol/L; Oxygen Saturation VBG 93.9 %; PCO2 VBG 42 mmHg (38-50); PO2 VBG 66 mmHg
[2023-07-28 21:01] LABS: Basophils # (auto) 0.02 K/uL (0.00-0.20); Basophils % (auto) 0.3 %; Eosinophils # (auto) 0.14 K/uL (0.00-0.50); Eosinophils % (auto) 1.9 %; Hematocrit (blood only) 36.8 % (37.0-47.0); Hemoglobin 11.3 g/dl (12.0-16.0); Immature Granulocytes # (auto) 0.03 K/uL (0.01-0.20); Immature Granulocytes % (auto) 0.4 %; Lymphocytes # (auto) 1.51 K/uL (1.20-3.40); Lymphocytes % (auto) 20.4 %; Mean Corpuscular Hemoglobin 22.3 pg (25.0-34.0); Mean Corpuscular Hgb Conc 30.7 g/dL (32.0-36.0); Mean Corpuscular Volume 72.7 fL (80.0-100.0); Mean Platelet Volume 11.4 fL (9.4-12.4); Monocytes % (auto) 6.7 %; Neutrophils # (auto) 5.22 K/uL (1.40-6.50); Neutrophils % (auto) 70.3 %; Platelet Count 217 K/uL (130-400); RDW Coefficient of Variation 14.7 % (11.5-14.5); RDW Standard Deviation 38.2 fL (36.4-46.3); Red Blood Count 5.06 M/uL (4.20-5.40); White Blood Count 7.42 K/ul (4.8-10.8)
--- NOTE | 2023-07-28 21:04 | Emergency Department Note ---
Impression & Plan Shortness of breath, Hypertension, Hypomagnesemia, Bilateral pneumonia, Tachycardia, Acute hypokalemia ED Provider Note HISTORY OF PRESENT ILLNESS: Patient is a 38-year-old female presenting with shortness of breath and cough. Patient reports that she has had progressively worsening shortness of breath, cough and wheezing over the last 72 hours. She was seen 3 days ago but left and states that her symptoms have been getting worse. She has been using her albuterol rescue inhaler with minimal relief in her symptoms. Denies any fevers. Denies any chest pain. Denies any DVT or PE history. Denies any OCP use. She states that her cough has been productive of brown sputum sometimes flecked with blood. Denies any recent travel. Reports that everyone in her family has been sick with similar symptoms recently. She reports she is unable to take more than a few steps at a time before becoming significantly short of breath. ROS: as above PHYSICAL EXAM: Constitutional: Patient appears in no acute distress. HENT: Head: Normocephalic and atraumatic. Eyes: EOMI, PERRL Mouth/Throat: Mucous membranes moist. Neck: Trachea midline. Neck supple. Cardiovascular: Tachycardic with regular rhythm. No murmurs, rubs or gallops. Intact distal pulses. Pulmonary/Chest: No respiratory distress. Breath sounds clear and equal bilaterally. No wheezes or rales. Abdominal: Abdomen soft, no tenderness, rebound or guarding. Musculoskeletal: No edema, tenderness or deformity noted. Skin: Warm and dry. No rash, erythema, pallor or cyanosis Psychiatric: Appropriate mood and affect for situation. Neurological: Alert and keenly responsive. CN II-XII grossly intact, moving all extremities equally and fully. MDM: - Vitals signs showed significant hypertension and tachycardia. - History obtained via patient. History as above. - Chronic conditions affecting care: HTN; DM-2 - Differential diagnoses include, but are not limited to: Congestive heart failure; acute coronary syndrome; COPD/asthma exacerbation; pulmonary edema; pulmonary embolism; pneumonia; pneumothorax; viral syndrome - Order placed for continuous cardiac monitoring. At this time, monitor showed rate of 115 bpm with normal sinus rhythm, per my interpretation. - External medical records reviewed. - EKG interpreted by myself showed normal sinus rhythm. Rate tachycardic at 112 bpm. QT 334. No acute ischemic changes. Noted to have PVCs. - Laboratory workup interpreted by myself showed normal WBC; hypokalemia (K 3.1); hypomagnesemia (Mg 1.4); normal troponin; elevated BNP (138) - CXR negative for pneumonia, per my interpretation - Viral respiratory panel negative - VBG normal - CT PE negative for PE, but noted shows mild bilateral patchy infiltrates concerning for pneumonia. - Blood cultures obtained - Patient given duoneb treatment in ER before my initial assessment. She is also given 60 mg of IV Solu-Medrol. She was significantly hypertensive and given multiple doses of IV hydralazine with minimal relief in her pressure. She is given 1 g of IV magnesium for electrolyte replacement. She was given two 10 mEq IV potassium for electrolyte replacement. She was given 2 g IV Rocephin and 100 mg of IV doxycycline for pneumonia treatment. - Patient remained significantly hypertensive and tachycardic in the emergency department. Given her symptoms and her workup in the emergency department, will admit to the hospital. - Discussion was had with field case manager about patient's case and need for admission - Hospitalist consulted for admission - Patient admitted to [facility] service for further evaluation and management. ASSESSMENT AND PLAN: Diagnosis: Shortness of breath; bilateral pneumonia; hypokalemia; hypomagnesemia; tachycardia; hypertension Plan: Admit Past Med/Surg History Medical History Type 2 diabetes mellitus with diabetic neuropathy Acquired claw toe of left foot Acquired claw toe of right foot Pain of left foot Chronic back pain since 2011 Diabetic neuropathy left foot History of PCOS since 2013 Hx of migraines since age 11 Type 2 diabetes mellitus for past 8 years; using Insulin pump for past 2 years HTN (hypertension) for past 6 years; has been on Lisinopril in past but now allergic; also on Atenolol but not on meds currently due to Surgical History History of left salpingo-oophorectomy 2016 Hx of appendectomy age 13 Family History Mother Diabetes Hypertension Stroke Grandmother No problems noted. Father Diabetes Grandmother (Maternal) Diabetes Hypertension Stroke Social History Smoking Status: Unknown if ever smoked Tobacco Type: Cigarettes Second Hand Exposure: No; Do You Dip or Chew Tobacco: No; Hx Alcohol Use: No Hx Substance Use: No Preferred Language: Hebrew Communication Ability: Effective Sink Cutter Required: No Beliefs That Will Affect Care: None marital status: Single Current Living Situation: Family Feels Safe at Home: Yes Assistive Devices: BiPap Allergies Allergies Allergy/AdvReac Type Severity Reaction Status Date / Time banana Allergy Intermediate swelling Verified 01/25/22 01:58 lisinopril AdvReac Intermediate COUGH Verified 01/25/22 01:58 peach AdvReac Intermediate swelling Verified 01/25/22 01:58 pineapple AdvReac Intermediate swelling Verified 01/25/22 01:58 fruit Allergy Severe Swelling Uncoded 01/25/22 01:59 of Lip/Tongue/Throat Home Meds Home Medications Medication Instructions Recorded Confirmed aspirin 81 mg tablet,delayed 81 mg PO QAM 11/18/18 01/25/22 release ferrous sulfate 325 mg (65 mg 325 mg PO QAM 11/18/18 01/25/22 iron) tablet albuterol sulfate 90 mcg/actuation 1 puff inhalation Q4H PRN 02/17/21 04/11/23 aerosol inhaler (Ventolin HFA) Shortness Of Breath multivitamin (Daily Multi-Vitamin 1 tab PO QAM 02/17/21 01/25/22 tablet) budesonide-formoterol HFA 160 2 puff inhalation BID 04/11/23 04/11/23 mcg-4.5 mcg/actuation aerosol inhaler (Symbicort) clotrimazole-betamethasone 1 1 applic topical BID 04/11/23 04/11/23 %-0.05 % topical cream dulaglutide 0.75 mg/0.5 mL 0.75 mg subcut WK 04/11/23 04/11/23 subcutaneous pen injector ([employer]) insulin aspart U-100 100 unit/mL 0 - 160 unit continuous 04/11/23 04/11/23 subcutaneous solution subcutaneous infusion DAILY labetalol 200 mg tablet 200 mg PO TID 04/11/23 04/11/23 metformin 500 mg tablet,extended 1,000 mg PO BID 04/11/23 04/11/23 release 24 hr sodium chloride 0.65 % nasal spray 1 spray intranasal BID 04/11/23 04/11/23 aerosol ([place] Saline) Results & Data (ED) Vital Signs Vital Signs - 24 hr 07/28/23 18:45 07/28/23 20:44 07/28/23 21:53 Temperature 36.6 C Temperature Source Temporal Artery Scan Pulse Rate 118 H 113 H Pulse Rate [Apical] Respiratory Rate 19 Respiratory Effort / Characteristics Non-Labored Respiratory Depth Normal Respiratory Pattern Blood Pressure 242/106 H Blood Pressure [Right Arm] Blood Pressure Mean 151 Blood Pressure Mean [Right Arm] Pulse Oximetry 93 99 Oxygen Delivery Method Room Air Sepsis Recent Fever Within 48 Hours No Sepsis New/Unexplained Change in Mental Status N/A Sepsis Action Taken by Nursing No Action Required 07/28/23 22:04 07/28/23 22:04 07/29/23 00:29 Temperature Temperature Source Pulse Rate Pulse Rate [Apical] 116 H 114 H Respiratory Rate 22 19 Respiratory Effort / Characteristics Non-Labored Non-Labored Spontaneous Respiratory Depth Normal Normal Respiratory Pattern Regular Blood Pressure Blood Pressure [Right Arm] 211/138 H 189/121 H Blood Pressure Mean Blood Pressure Mean [Right Arm] 162 143 Pulse Oximetry 94 95 96 Oxygen Delivery Method Room Air Room Air Room Air Sepsis Recent Fever Within 48 Hours Sepsis New/Unexplained Change in Mental Status Sepsis Action Taken by Nursing Laboratory Data 07/28/23 20:32 07/28/23 20:32 Lab Results 07/28/23 07/28/23 Range/Units 20:32 Unknown WBC 7.42 (4.8-10.8) K/ul RBC 5.06 (4.20-5.40) M/uL Hgb 11.3 L (12.0-16.0) g/dl Hct 36.8 L (37.0-47.0) % MCV 72.7 L (80.0-100.0) fL MCH 22.3 L (25.0-34.0) pg MCHC 30.7 L (32.0-36.0) g/dL RDW Std Deviation 38.2 (36.4-46.3) fL RDW Coeff of Neftaly 14.7 H (11.5-14.5) % Plt Count 217 (130-400) K/uL MPV 11.4 (9.4-12.4) fL Immature Gran % (Auto) 0.4 % Neut % (Auto) 70.3 % Lymph % (Auto) 20.4 % Fisher % (Auto) 6.7 % Eos % (Auto) 1.9 % Baso % (Auto) 0.3 % Neut # (Auto) 5.22 (1.40-6.50) K/uL Lymph # (Auto) 1.51 (1.20-3.40) K/uL Fisher # (Auto) 0.50 (0.11-0.59) K/uL Eos # (Auto) 0.14 (0.00-0.50) K/uL Baso # (Auto) 0.02 (0.00-0.20) K/uL Immature Gran # (Auto) 0.03 (0.01-0.20) K/uL VBG pH 7.40 (7.36-7.41) VBG pCO2 42 (38-50) mmHg VBG pO2 66 mmHg VBG HCO3 26 mmol/L VBG O2 Saturation 93.9 % VBG Base Excess 1.0 mEq/L Sodium 138 (136-145) mmol/L Potassium 3.1 L (3.5-5.1) mmol/L Chloride 104 (98-107) mmol/L Carbon Dioxide 25 (21-32) mmol/L Anion Gap 9 (3-11) BUN 10 (6-23) mg/dl Creatinine 0.69 (0.6-1.2) mg/dl Est Cr Clr Drug Dosing Not Reportable Est GFR ( Amer) 128.9 ml/min Est GFR (Non-Af Amer) 111.2 ml/min BUN/Creatinine Ratio 14.5 (10-20) Glucose 252 H (70-99(Fasting)) mg/dl Calcium 8.8 (8.6-10.3) mg/dl Magnesium 1.4 L (1.7-2.4) mg/dl Total Bilirubin 0.7 (0.2-1.0) mg/dl AST 15 (13-39) U/L ALT 15 (7-52) U/L Alkaline Phosphatase 78 (34-104) U/L Troponin I High Sens 8.6 (0-14) pg/ml B-Natriuretic Peptide 138 H (0-100) pg/ml Total Protein 8.0 (6.0-8.3) gm/dl Albumin 3.9 (3.4-5.0) gm/dl Globulin 4.1 H (2.5-4.0) gm/dl Albumin/Globulin Ratio 1.0 (0.9-2) Adenovirus (PCR) Not Detected (NotDetected) B. pertussis DNA (PCR) Not Detected (NotDetected) B.parapertussis DNA PCR Not Detected (NotDetected) C. pneumoniae DNA (PCR) Not Detected (NotDetected) Coronavirus OC43 (PCR) Not Detected (NotDetected) Coronavirus HKU1 (PCR) Not Detected (NotDetected) Coronavirus 229E (PCR) Not Detected (NotDetected) SARS-CoV-2 (PCR) Not Detected (NotDetected) Coronavirus NL63 (PCR) Not Detected (NotDetected) Human Metapneumovir PCR Not Detected (NotDetected) Influenza Type A (PCR) Not Detected (NotDetected) Influenza Type B (PCR) Not Detected (NotDetected) M. pneumoniae (PCR) Not Detected (NotDetected) Parainfluenza 1 (PCR) Not Detected (NotDetected) Parainfluenza 2 (PCR) Not Detected (NotDetected) Parainfluenza 3 (PCR) Not Detected (NotDetected) Parainfluenza 4 (PCR) Not Detected (NotDetected) RSV (PCR) Not Detected (NotDetected) Entero/Rhino (PCR) Not Detected (NotDetected) Administered Medications Doxycycline Hyclate 100 mg/ (Dextrose) 100 mls @ 50 mls/hr IV NOW STA Stop: 07/29/23 02:09 Last Admin: 07/29/23 00:54 Dose: 50 mls/hr Documented By: ASW Discontinued Medications Albuterol (Albut/Ipratrop 3mg/0.5mg Neb 3 Ml Vial) 3 ml NEB NOW STA; Protocol Stop: 07/28/23 20:14 Last Admin: 07/28/23 20:49 Dose: 3 ml Documented By: SHELLEY Hydralazine HCl (Hydralazine Hcl 20 Mg/Ml Vial) 10 mg IV NOW STA Stop: 07/28/23 21:30 Last Admin: 07/28/23 21:55 Dose: 10 mg Documented By: NATTY Hydralazine HCl (Hydralazine Hcl 20 Mg/Ml Vial) 10 mg IV NOW STA Stop: 07/28/23 22:33 Last Admin: 07/28/23 22:49 Dose: 10 mg Documented By: SHELLEY Magnesium Sulfate/Dextrose (Magnesium Sulfate / D5w) 1 gm in 100 mls @ 100 mls/hr IV NOW STA Stop: 07/28/23 22:20 Last Infusion: 07/29/23 00:00 Dose: Infused Documented By: Admin: 07/28/23 21:56 Dose: 100 mls/hr Documented By: NATTY Potassium Chloride (K Nirav / Wtr) 10 meq in 100 mls @ 100 mls/hr IV Q1H LILA Stop: 07/29/23 00:44 Last Admin: 07/29/23 00:13 Dose: 100 mls/hr Documented By: Infusion: 07/29/23 00:00 Dose: Infused Documented By: Admin: 07/28/23 22:49 Dose: 100 mls/hr Documented By: SHELLEY Ceftriaxone Sodium (Rocephin) 2,000 mg in 50 mls @ 100 mls/hr IV NOW STA Stop: 07/29/23 00:39 Last Admin: 07/29/23 00:29 Dose: 100 mls/hr Documented By: MARY Ioversol (Optiray 320 125ml) 115 ml IV ONCE ONE Stop: 07/28/23 21:42 Last Admin: 07/28/23 21:41 Dose: 115 ml Documented By: LIANET Labetalol HCl (Labetalol Hcl Iv 5 Mg/Ml 20ml) 10 mg IV NOW STA Stop: 07/29/23 00:45 Last Admin: 07/29/23 00:53 Dose: 10 mg Documented By: MARY Co-signed By: GALEN Methylprednisolone (Methylprednisolone 125 Mg/2 Ml Vial) 60 mg IV NOW STA Stop: 07/28/23 20:15 Last Admin: 07/28/23 20:50 Dose: 60 mg Documented By: SHELLEY Imaging Data Radiologist's Impression: Chest X-Ray 07/28/23 18:48 SINGLE VIEW CHEST CLINICAL HISTORY: Cough FINDINGS: A PA chest radiograph is compared to study dated 07/15/2023. The cardiomediastinal silhouette is unremarkable. There is chronic elevation of the right hemidiaphragm and mild bibasilar atelectasis. The lungs and pleural spaces are otherwise clear. No pneumothorax is seen. The bony thorax is grossly intact. IMPRESSION: No active disease in the chest. ACT 112: Negative or not required by law. Electronically signed by: Kareem Infante M.D. 07/28/2023 7:40 PM Chest CTA 07/28/23 20:30 Exam(s): CTA CHEST EXAM: CT Angiography Chest With Intravenous Contrast CLINICAL HISTORY: Reason for exam: PE. TECHNIQUE: Axial computed tomographic angiography images of the chest with intravenous contrast. CTDI is 28.14 mGy and DLP is 903.45 mGy-cm. Automated exposure control was utilized for the study. A dose lowering technique was utilized adhering to the principles of ALARA. MIP reconstructed images were created and reviewed. COMPARISON: CT chest September 02, 2022. FINDINGS: Pulmonary arteries: Unremarkable. No pulmonary embolism. Aorta: No acute findings. No thoracic aortic aneurysm. Lungs: Mild bilateral patchy pulmonary infiltrates which may represent pneumonia. No mass. Pleural space: Unremarkable. No significant effusion. No pneumothorax. Heart: Unremarkable. No cardiomegaly. No significant pericardial effusion. No evidence of RV dysfunction. Bones/joints: No acute fracture. No dislocation. Soft tissues: Unremarkable. Lymph nodes: Unremarkable. No enlarged lymph nodes. IMPRESSION: Mild bilateral patchy infiltrates which may represent pneumonia. No evidence of pulmonary emboli. Electronically signed by: Rodolfo Archer MD 07/28/23 23:09 PM Discharge Plan Visit Data Chief Complaint: Shortness of Breath/Dyspnea Stated Complaint: SOB, WHEEZING ED Provider: Isabela Lozano Discharge Problem: Shortness of breath, Hypertension, Hypomagnesemia, Bilateral pneumonia, Tachycardia, Acute hypokalemia Forms Stand Alone Forms: [facility] Contactually Prescriptions Prescriptions: No Action aspirin 81 mg Tablet,Delayed Release (Dr/Ec) 81 mg PO QAM ferrous sulfate 325 mg (65 mg iron) Tablet 325 mg PO QAM multivitamin [Daily Multi-Vitamin] Tablet 1 tab PO QAM albuterol sulfate [Ventolin HFA] 90 mcg/actuation HFA aerosol inhaler 1 puff INHALATION Q4H PRN (Reason: Shortness Of Breath) labetalol 200 mg tablet 200 mg PO TID insulin aspart U-100 100 unit/mL solution 0 - 160 unit continuous subcutaneous infusion DAILY Rx Instructions: VIA pump clotrimazole-betamethasone 1-0.05 % cream 1 applic TOPICAL BID Rx Instructions: apply to outsides metformin 500 mg tablet extended release 24 hr 1,000 mg PO BID [place] Saline 0.65 % aerosol,spray 1 spray INTRANASAL BID budesonide-formoterol [Symbicort] 160-4.5 mcg/actuation HFA aerosol inhaler 2 puff INHALATION BID Trulicity 0.75 mg/0.5 mL pen injector 0.75 mg SUBCUT WK Referrals Referrals: Neena Mcgrath MD [Primary Care Provider] -
[2023-07-28 21:18] LABS: Alanine Aminotransferase 15 U/L (7-52); Albumin Level 3.9 gm/dl (3.4-5.0); Alkaline Phosphatase 78 U/L (34-104); Anion Gap 9 (3-11); Aspartate Aminotransferase 15 U/L (13-39); BUN Creatinine Ratio 14.5 (10-20); Bilirubin,Total 0.7 mg/dl (0.2-1.0); Blood Urea Nitrogen 10 mg/dl (6-23); Calcium 8.8 mg/dl (8.6-10.3); Carbon Dioxide 25 mmol/L (21-32); Chloride 104 mmol/L (98-107); Est GFR (African American) 128.9 ml/min; Est GFR (Non-African American) 111.2 ml/min; Globulin 4.1 gm/dl (2.5-4.0); Glucose 252 mg/dl (70-99(Fasting)); Magnesium 1.4 mg/dl (1.7-2.4); Potassium 3.1 mmol/L (3.5-5.1); Sodium 138 mmol/L (136-145)
[2023-07-28 21:23] LABS: Troponin I High Sensitivity 8.6 pg/ml (0-14)
[2023-07-28] MEDS: OPTIRAY 320 125ml IV ONE (21:41)
[2023-07-28] MEDS: hydrALAZINE HCL 20 MG/ML VIAL IV STA ×2 (21:55→22:49)
[2023-07-28] MEDS: MAGNESIUM SULFATE / D5W 1 GM/100 ML BAG IV STA (21:56)
[2023-07-28] MEDS: POTASSIUM CHLORIDE / WTR 10 MEQ/100 ML PLCT IV SCH (22:49)
--- NOTE | 2023-07-28 23:10 | CT Scan Report ---
Exam(s): CTA CHEST EXAM: CT Angiography Chest With Intravenous Contrast CLINICAL HISTORY: Reason for exam: PE. TECHNIQUE: Axial computed tomographic angiography images of the chest with intravenous contrast. CTDI is 28.14 mGy and DLP is 903.45 mGy-cm. Automated exposure control was utilized for the study. A dose lowering technique was utilized adhering to the principles of ALARA. MIP reconstructed images were created and reviewed. COMPARISON: CT chest September 02, 2022. FINDINGS: Pulmonary arteries: Unremarkable. No pulmonary embolism. Aorta: No acute findings. No thoracic aortic aneurysm. Lungs: Mild bilateral patchy pulmonary infiltrates which may represent pneumonia. No mass. Pleural space: Unremarkable. No significant effusion. No pneumothorax. Heart: Unremarkable. No cardiomegaly. No significant pericardial effusion. No evidence of RV dysfunction. Bones/joints: No acute fracture. No dislocation. Soft tissues: Unremarkable. Lymph nodes: Unremarkable. No enlarged lymph nodes. IMPRESSION: Mild bilateral patchy infiltrates which may represent pneumonia. No evidence of pulmonary emboli. Electronically signed by: Rodolfo Archer MD 07/28/23 23:09 PM
[2023-07-29] MEDS: cefTRIAXone SODIUM 2,000 MG/50 ML BAG IV STA (00:29)
[2023-07-29] MEDS: LABETALOL HCL IV 5 MG/ML 20ML IV STA (00:53)
[2023-07-29] MEDS: DOXYCYCLINE HYCLATE 100 MG in DEXTROSE 5% MINI-B 100 ML IV STA (00:54)
--- NOTE | 2023-07-29 02:02 | History & Physical Report ---
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 Lovenox subcu Full code Text document was generated using [employer] voice recognition software. It may contain grammatical or spelling errors. Kindly contact undersigned for clarification of any documentation item in question. History of Present Illness Chief Complaint: Worsening cough, shortness of breath Primary Care Provider: Neena Mcgrath MD History obtained from patient, family, and records. Medical history significant for hypertension, history of VT, DM2 on insulin pump, restrictive lung disease as per records, JA, GERD, chronic anemia (baseline hemoglobin of 11 ), migraine, medical noncompliance as per records, past tobacco abuse. Last confinement August 2022 under OB service for uncontrolled hypertension in the setting of 30 weeks AOG. Patient found to have preeclampsia with pulmonary edema. Patient subsequently transferred to [facility] [place]. 4 days history of cough symptoms initially dry later junky. 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 Denies aspiration. Patient brought son to ER for evaluation of few days ago. She initially wanted to get checked out but decided to go home because it was getting late. Worsening symptoms at home. Chest pain from coughing. Achy headache symptoms different from migraine attack. Claims to be compliant with home medications. SBP 240s upon arrival at the ER. Medical History as above Surgical History : Appendectomy, left salpingo-oophorectomy Family History : DM, hypertension Personal/Social history : Past tobacco abuse, no EtOH intake, snf work Allergies Allergy/AdvReac Type Severity Reaction Status Date / Time banana Allergy Intermediate swelling Verified 01/25/22 01:58 lisinopril AdvReac Intermediate COUGH Verified 01/25/22 01:58 peach AdvReac Intermediate swelling Verified 01/25/22 01:58 pineapple AdvReac Intermediate swelling Verified 01/25/22 01:58 fruit Allergy Severe Swelling Uncoded 01/25/22 01:59 of Lip/Tongue/Throat Home Medications Medication Instructions Recorded Confirmed Type aspirin 81 mg tablet,delayed 81 mg PO QAM 11/18/18 07/29/23 History release ferrous sulfate 325 mg (65 mg 325 mg PO QAM 11/18/18 07/29/23 History iron) tablet albuterol sulfate 90 mcg/actuation 1 puff inhalation Q4H PRN 02/17/21 07/29/23 History aerosol inhaler (Ventolin HFA) Shortness Of Breath multivitamin (Daily Multi-Vitamin 1 tab PO QAM 02/17/21 07/29/23 History tablet) budesonide-formoterol HFA 160 2 puff inhalation BID 04/11/23 07/29/23 History mcg-4.5 mcg/actuation aerosol inhaler (Symbicort) clotrimazole-betamethasone 1 1 applic topical BID 04/11/23 07/29/23 History %-0.05 % topical cream dulaglutide 0.75 mg/0.5 mL 0.75 mg subcut WK 04/11/23 07/29/23 History subcutaneous pen injector (Trulicity) insulin aspart U-100 100 unit/mL 0 - 160 unit continuous 04/11/23 07/29/23 History subcutaneous solution subcutaneous infusion DAILY labetalol 200 mg tablet 200 mg PO TID 04/11/23 07/29/23 History metformin 500 mg tablet,extended 1,000 mg PO BID 04/11/23 07/29/23 History release 24 hr sodium chloride 0.65 % nasal spray 1 spray intranasal BID 04/11/23 07/29/23 History aerosol ([place] Saline) losartan 50 mg tablet 50 mg PO DAILY 07/29/23 07/29/23 History Past Med/Surg History Medical History Type 2 diabetes mellitus with diabetic neuropathy Acquired claw toe of left foot Acquired claw toe of right foot Pain of left foot Chronic back pain since 2011 Diabetic neuropathy left foot History of PCOS since 2013 Hx of migraines since age 11 Type 2 diabetes mellitus for past 8 years; using Insulin pump for past 2 years HTN (hypertension) for past 6 years; has been on Lisinopril in past but now allergic; also on Atenolol but not on meds currently due to Surgical History History of left salpingo-oophorectomy 2016 Hx of appendectomy age 13 Family History Mother Diabetes Hypertension Stroke Grandmother No problems noted. 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 Beliefs That Will Affect Care: None marital status: Single Current Living Situation: Family Feels Safe at Home: Yes Assistive Devices: BiPap Review of Systems Review of Systems: As per HPI, all other systems reviewed and negative Physical Exam Physical Exam: GENERAL: Comfortable, pleasant, morbidly obese, no respiratory distress SKIN: Normal color, warm HEENT: Guy palpebral conjunctivae, no ptosis, dry buccal mucosa NECK : Supple, short neck, no tenderness CHEST : Decreased breath sounds, no tenderness HEART : Tachycardic, no obvious murmurs ABDOMEN: Some distention, nontender EXTREMITIES : Minimal LE swelling, no LE tenderness, no other conspicuous defo rmities noted NEUROLOGIC : Coherent, no facial asymmetry, no other gross focality Results & Data Results & Data Vital Signs (Past 12 Hours) Vital Signs Temp Pulse Pulse Resp BP BP Pulse Ox 07/29/23 01:29 108 H 187/105 H 07/29/23 00:58 36.9 C 105 H 19 173/108 H 93 07/29/23 00:29 114 H 19 189/121 H 96 07/28/23 22:04 116 H 22 211/138 H 95 07/28/23 22:04 94 07/28/23 21:53 113 H 07/28/23 20:44 99 07/28/23 18:45 36.6 C 118 H 19 242/106 H 93 O2 Del Method 07/29/23 01:29 07/29/23 00:58 Room Air 07/29/23 00:29 Room Air 07/28/23 22:04 Room Air 07/28/23 22:04 Room Air 07/28/23 21:53 07/28/23 20:44 07/28/23 18:45 Room Air Laboratory Results Laboratory Results WBC 7.42 K/ul (4.8-10.8) 07/28/23 20:32 RBC 5.06 M/uL (4.20-5.40) 07/28/23 20:32 Hgb 11.3 g/dl (12.0-16.0) L 07/28/23 20:32 Hct 36.8 % (37.0-47.0) L 07/28/23 20:32 MCV 72.7 fL (80.0-100.0) L 07/28/23 20:32 MCH 22.3 pg (25.0-34.0) L 07/28/23 20: MCHC 30.7 g/dL (32.0-36.0) L 07/28/23 20:32 RDW Std Deviation 38.2 fL (36.4-46.3) 07/28/23 20:32 RDW Coeff of [place] 14.7 % (11.5-14.5) H 07/28/23 20:32 Plt Count 217 K/uL (130-400) 07/28/23 20:32 MPV 11.4 fL (9.4-12.4) 07/28/23 20:32 Immature Gran % (Auto) 0.4 % 07/28/23 20:32 Neut % (Auto) 70.3 % 07/28/23 20:32 Lymph % (Auto) 20.4 % 07/28/23 20:32 [place] % (Auto) 6.7 % 07/28/23 20:32 Eos % (Auto) 1.9 % 07/28/23 20:32 Baso % (Auto) 0.3 % 07/28/23 20:32 Neut # (Auto) 5.22 K/uL (1.40-6.50) 07/28/23 20:32 Lymph # (Auto) 1.51 K/uL (1.20-3.40) 07/28/23 20:32 [place] # (Auto) 0.50 K/uL (0.11-0.59) 07/28/23 20:32 Eos # (Auto) 0.14 K/uL (0.00-0.50) 07/28/23 20:32 Baso # (Auto) 0.02 K/uL (0.00-0.20) 07/28/23 20:32 Immature Gran # (Auto) 0.03 K/uL (0.01-0.20) 07/28/23 20:32 VBG pH 7.40 (7.36-7.41) 07/28/23 20:32 VBG pCO2 42 mmHg (38-50) 07/28/23 20:32 VBG pO2 66 mmHg 07/28/23 20:32 VBG HCO3 26 mmol/L 07/28/23 20:32 VBG O2 Saturation 93.9 % 07/28/23 20:32 VBG Base Excess 1.0 mEq/L 07/28/23 20:32 Sodium 138 mmol/L (136-145) 07/28/23 20:32 Potassium 3.1 mmol/L (3.5-5.1) L 07/28/23 20:32 Chloride 104 mmol/L (98-107) 07/28/23 20:32 Carbon Dioxide 25 mmol/L (21-32) 07/28/23 20:32 Anion Gap 9 (3-11) 07/28/23 20:32 BUN 10 mg/dl (6-23) 07/28/23 20:32 Creatinine 0.69 mg/dl (0.6-1.2) 07/28/23 20:32 Est Cr Clr Drug Dosing Not Reportable 07/28/23 20:32 Est GFR ( Amer) 128.9 ml/min 07/28/23 20:32 Est GFR (Non-Af Amer) 111.2 ml/min 07/28/23 20:32 BUN/Creatinine Ratio 14.5 (10-20) 07/28/23 20:32 Glucose 252 mg/dl (70-99(Fasting)) H 07/28/23 20:32 Calcium 8.8 mg/dl (8.6-10.3) 07/28/23 20:32 Magnesium 1.4 mg/dl (1.7-2.4) L 07/28/23 20:32 Total Bilirubin 0.7 mg/dl (0.2-1.0) 07/28/23 20:32 AST 15 U/L (13-39) 07/28/23 20:32 ALT 15 U/L (7-52) 07/28/23 20:32 Alkaline Phosphatase 78 U/L (34-104) 07/28/23 20:32 Troponin I High Sens 8.6 pg/ml (0-14) 07/28/23 20:32 B-Natriuretic Peptide 138 pg/ml (0-100) H 07/28/23 20:32 Total Protein 8.0 gm/dl (6.0-8.3) 07/28/23 20:32 Albumin 3.9 gm/dl (3.4-5.0) 07/28/23 20: Globulin 4.1 gm/dl (2.5-4.0) H 07/28/23 20:32 Albumin/Globulin Ratio 1.0 (0.9-2) 07/28/23 20:32 Adenovirus (PCR) Not Detected (NotDetected) 07/28/23 Unknown B. pertussis DNA (PCR) Not Detected (NotDetected) 07/28/23 Unknown B.parapertussis DNA PCR Not Detected (NotDetected) 07/28/23 Unknown C. pneumoniae DNA (PCR) Not Detected (NotDetected) 07/28/23 Unknown Coronavirus OC43 (PCR) Not Detected (NotDetected) 07/28/23 Unknown Coronavirus HKU1 (PCR) Not Detected (NotDetected) 07/28/23 Unknown Coronavirus 229E (PCR) Not Detected (NotDetected) 07/28/23 Unknown SARS-CoV-2 (PCR) Not Detected (NotDetected) 07/28/23 Unknown Coronavirus NL63 (PCR) Not Detected (NotDetected) 07/28/23 Unknown Human Metapneumovir PCR Not Detected (NotDetected) 07/28/23 Unknown Influenza Type A (PCR) Not Detected (NotDetected) 07/28/23 Unknown Influenza Type B (PCR) Not Detected (NotDetected) 07/28/23 Unknown M. pneumoniae (PCR) Not Detected (NotDetected) 07/28/23 Unknown Parainfluenza 1 (PCR) Not Detected (NotDetected) 07/28/23 Unknown Parainfluenza 2 (PCR) Not Detected (NotDetected) 07/28/23 Unknown Parainfluenza 3 (PCR) Not Detected (NotDetected) 07/28/23 Unknown Parainfluenza 4 (PCR) Not Detected (NotDetected) 07/28/23 Unknown RSV (PCR) Not Detected (NotDetected) 07/28/23 Unknown Entero/Rhino (PCR) Not Detected (NotDetected) 07/28/23 Unknown Impressions Chest X-Ray 07/28/23 18:48 SINGLE VIEW CHEST CLINICAL HISTORY: Cough FINDINGS: A PA chest radiograph is compared to study dated 07/15/2023. The cardiomediastinal silhouette is unremarkable. There is chronic elevation of the right hemidiaphragm and mild bibasilar atelectasis. The lungs and pleural spaces are otherwise clear. No pneumothorax is seen. The bony thorax is grossly intact. IMPRESSION: No active disease in the chest. ACT 112: Negative or not required by law. Electronically signed by: Kareem Infante M.D. 07/28/2023 7:40 PM Chest CTA 07/28/23 20:30 Exam(s): CTA CHEST EXAM: CT Angiography Chest With Intravenous Contrast CLINICAL HISTORY: Reason for exam: PE. TECHNIQUE: Axial computed tomographic angiography images of the chest with intravenous contrast. CTDI is 28.14 mGy and DLP is 903.45 mGy-cm. Automated exposure control was utilized for the study. A dose lowering technique was utilized adhering to the principles of ALARA. MIP reconstructed images were created and reviewed. COMPARISON: CT chest September 02, 2022. FINDINGS: Pulmonary arteries: Unremarkable. No pulmonary embolism. Aorta: No acute findings. No thoracic aortic aneurysm. Lungs: Mild bilateral patchy pulmonary infiltrates which may represent pneumonia. No mass. Pleural space: Unremarkable. No significant effusion. No pneumothorax. Heart: Unremarkable. No cardiomegaly. No significant pericardial effusion. No evidence of RV dysfunction. Bones/joints: No acute fracture. No dislocation. Soft tissues: Unremarkable. Lymph nodes: Unremarkable. No enlarged lymph nodes. IMPRESSION: Mild bilateral patchy infiltrates which may represent pneumonia. No evidence of pulmonary emboli. Electronically signed by: Rodolfo Archer MD 07/28/23 23:09 PM Diagnostic Findings EKG as per my interpretation : Rate 110, sinus tachycardia, normal axis, T wave flattening inferior leads, PVCs
--- NOTE | 2023-07-29 02:10 | CT Scan Report ---
Exam(s): CT HEAD Without Contrast EXAM: CT Head Without Intravenous Contrast CLINICAL HISTORY: Reason for exam: sidhu, htn crisis. TECHNIQUE: Axial computed tomography images of the head/brain without intravenous contrast. CTDI is 36.43 mGy and DLP is 624.41 mGy-cm. Automated exposure control was utilized for the study. A dose lowering technique was utilized adhering to the principles of ALARA. COMPARISON: No relevant prior studies available. FINDINGS: Brain: Unremarkable. No acute intracranial hemorrhage, edema or abnormal mass-effect. Ventricles: Unremarkable. No ventriculomegaly. Bones/joints: Unremarkable. No acute fracture. Soft tissues: Unremarkable. Sinuses: Unremarkable as visualized. No acute sinusitis. Mastoid air cells: Unremarkable as visualized. No mastoid effusion. IMPRESSION: No acute or focal intracranial abnormality. Electronically signed by: Rodolfo Archer MD 07/29/23 02:09 AM
[2023-07-29] MEDS: POTASSIUM CHLORIDE CRTAB 20 MEQ TABCR PO STA (02:22)
[2023-07-29] MEDS: ACETAMINOPHEN 325 MG TAB PO STA (02:22)
[2023-07-29] MEDS ORDERED: PROMETHAZINE HCL 12.5 MG in SODIUM CHLORIDE 0.9% 50 ML IV PRN (02:23)
[2023-07-29] MEDS: LOSARTAN POTASSIUM 50 MG TAB PO STA ×2 (02:23→06:09)
[2023-07-29] MEDS ORDERED: oxyCODONE HCL IR 5 MG TAB (IMMEDIATE RELEASE) PO PRN (02:23)
[2023-07-29] MEDS: MAGNESIUM SULFATE / D5W 1 GM/100 ML BAG IV SCH (02:24)
[2023-07-29] MEDS ORDERED: PHARMACY GLYCEMIC MGMT CONSULT PRN (02:25)
[2023-07-29] MEDS ORDERED: CARBOHYDRATES FOR HYPOGLYCEMIA PO PRN (04:00)
[2023-07-29] MEDS ORDERED: DEXTROSE 50% 50 ML SYRINGE IV PRN (04:00)
[2023-07-29] MEDS ORDERED: GLUCAGON FOR INJ 1 MG VIAL IM PRN (04:00)
[2023-07-29] MEDS ORDERED: INSULIN ASPART 100 UNITS/ML 3 ML PEN SC ONE (04:00)
[2023-07-29] MEDS ORDERED: GLUCOSE 40% GEL 15 GM TUBE PO PRN (04:00)
[2023-07-29] MEDS ORDERED: GLUCOSE 10 TAB/TUBE PO PRN (04:00)
[2023-07-29] MEDS ORDERED: ACETAMINOPHEN 325 MG TAB PO PRN (05:22)
[2023-07-29] MEDS: POTASSIUM CHLORIDE CRTAB 20 MEQ TABCR PO ONE (05:24)
[2023-07-29] MEDS: INSULIN ASPART PER UNIT CHARGE SC ONE (05:25)
[2023-07-29 05:26] LABS: Appearance Urine Clear (Clear); Bacteria Urine Automated Negative (Negative); Bilirubin Urine Negative (Negative); Blood Urine Negative (Negative); Cast Urine Automated 0 /lpf (0-5); Color Urine Yellow; Epithelial Cell Urine Auto 20-30 /lpf (0-5); Glucose Urine UA 3+ (Negative); Ketones Urine Trace (Negative); Leukocyte Esterase Urine Negative (Negative); Nitrite Urine Negative (Negative); RBC Urine Automated 0-4 /hpf (0-4); Specific Gravity Urine 1.037 (1.000-1.030); Urobilinogen Urine Negative (Negative); WBC Urine Automated 0 /hpf (0-5); pH Urine 7.5 (4.5-7.5)
[2023-07-29 05:27] LABS: Pregnancy Test, Urine Negative (Negative)
[2023-07-29 05:28] LABS: Protein Urine 2+ (Negative)
[2023-07-29] MEDS ORDERED: XOPENEX/ATROVENT 1.25mg/0.5MG NEB COMBO NEB STA (06:21)
[2023-07-29] MEDS ORDERED: INFLUENZA VIRUS QUADRIVALENT VACCINE (IIV4) 0.5 ML SYR IM ONE (06:29)
[2023-07-29] MEDS: LABETALOL HCL 200 MG TAB PO STA (06:37)
[2023-07-29] MEDS: LEVALBUTEROL 1.25 MG/3 ML NEB NEB STA (07:13)
[2023-07-29] MEDS: IPRATROPIUM BROMIDE NEB SOLN 0.02% 0.5MG/2.5ML VIAL INH STA (07:13)
[2023-07-29] MEDS: LEVALBUTEROL 1.25 MG/3 ML NEB NEB SCH (07:28)
[2023-07-29] MEDS: IPRATROPIUM BROMIDE NEB SOLN 0.02% 0.5MG/2.5ML VIAL INH SCH (07:29)
[2023-07-29] MEDS: FUROSEMIDE INJ 20 MG/2 ML VIAL IV ONE (07:51)
[2023-07-29] MEDS: FERROUS SULFATE 325 MG TAB PO SCH (07:53)
[2023-07-29] MEDS: ASPIRIN 81 MG ECTAB PO SCH (07:53)
[2023-07-29] MEDS: ENOXAPARIN INJ 40 MG/0.4 ML SYR SQ SCH (07:53)
[2023-07-29] MEDS: MULTIVITAMIN TAB PO SCH (07:54)
[2023-07-29] MEDS: SODIUM CHLORIDE 0.65% NA SOLN 45 ML (OCEAN) SCH (07:54)
[2023-07-29] MEDS: FLUTICASONE/VILANTEROL 200/25MCG 14 PUFFS/INHALER INH SCH (07:54)
[2023-07-29 08:30] LABS: Basophils # (auto) 0.02 K/uL (0.00-0.20); Basophils % (auto) 0.2 %; Hematocrit (blood only) 35.3 % (37.0-47.0); Immature Granulocytes # (auto) 0.12 K/uL (0.01-0.20); Immature Granulocytes % (auto) 1.4 %; Lymphocytes # (auto) 0.94 K/uL (1.20-3.40); Lymphocytes % (auto) 11.2 %; Mean Corpuscular Hemoglobin 22.4 pg (25.0-34.0); Mean Corpuscular Hgb Conc 31.2 g/dL (32.0-36.0); Mean Platelet Volume 11.3 fL (9.4-12.4); Monocytes # (auto) 0.31 K/uL (0.11-0.59); Monocytes % (auto) 3.7 %; Neutrophils # (auto) 7.02 K/uL (1.40-6.50); Neutrophils % (auto) 83.5 %; Platelet Count 238 K/uL (130-400); RDW Coefficient of Variation 14.8 % (11.5-14.5); RDW Standard Deviation 38.1 fL (36.4-46.3); White Blood Count 8.41 K/ul (4.8-10.8)
[2023-07-29] MEDS: INSULIN ASPART PER UNIT CHARGE SC SCH ×2 (08:44→23:25)
[2023-07-29] MEDS: LANTUS PER UNIT CHARGE SC ONE ×2 (08:44→20:22)
[2023-07-29 08:53] LABS: BUN Creatinine Ratio 15.7 (10-20); Calcium 8.6 mg/dl (8.6-10.3); Creatinine Clr Calc Pharmacy 138.3 ml/min; Est GFR (African American) 128.3 ml/min; Est GFR (Non-African American) 110.7 ml/min; Potassium 3.9 mmol/L (3.5-5.1)
[2023-07-29] MEDS ORDERED: PNEUMOCOCCAL VACCINE (PCV20) 20-VAL CONJ-DIP CRM/PF 0.5 ML SYR IM ONE (09:00)
[2023-07-29] MEDS ORDERED: LABETALOL HCL 200 MG TAB PO SCH (09:00)
[2023-07-29] MEDS: levoFLOXacin 750 MG TAB PO SCH (11:22)
--- NOTE | 2023-07-29 12:37 | Pharmacy Report ---
Pharmacy Glycemic Short Note 2 - Date of Service July 29, 2023 - Glycemic Short BSG Results (Last 24 hours): 07/28/23 07/29/23 07/29/23 20:32 03:37 07:25 Glucose 252 H POC Glucose 247 H 253 H 07/29/23 07/29/23 08:03 11:17 Glucose 284 H POC Glucose 214 H OUTPATIENT ANTIDIABETIC REGIMEN: * Insulin pump- Novolog= current basal settings 3.1 units/hr 12 AM-6AM, 3 units/hr 6AM-12 AM * Sensitivity Factor 7 * Carb ratio 15 ASSESSMENT: * Patient admitted with pneumonia, hypertension. Currently on oral levofloxacin * Confirmed with patient she has type 2 diabetes and uses her insulin pump, reviewed current settings with her, she reports recent BSGs have been good * She did receive a dose of Iv solumedrol in the ED, discussed hyperglycemia and patient management with pump or preference to switch to basal/bolus with glycemic consult. Patient is agreeable to basal/bolus with subq insulin. Patient had suspended her insulin pump at approximately 0530 this morning. * BSGs in the 200s this morning- home basal 72.6 units, gave ~75% of home basal (between weight based stress of 2 and 3) 50 units x 1 with removal of insulin pump. * Novolog parameters also set between weight based stress of 2 and 3, tighter carb coverage than at home as patient received steroids. Monitor correction factor for need to tighten. PLAN FOR INPATIENT GLYCEMIC CONTROL: * Hold outpatient oral diabetes medications * Basal insulin * Lantus 50 units SQ x1 * Scale for PM 0/10 units * Bolus insulin * NovoLog per scale ACHS or Q6hrs while NPO * Goal Range: Low 110 mg/dL - High 140 mg/dL * Correction Factor: 18 mg/dL/unit * Nutritional / Prandial insulin per carb ratio of 1 unit per 6 grams CHO consumed
[2023-07-29] MEDS: LABETALOL HCL 200 MG TAB PO SCH (13:25)
--- NOTE | 2023-07-29 13:32 | Communication Note ---
Date of Service: July 29, 2023 38-year-old lady with PMH of HTN, VT, T2DM on insulin pump, restrictive lung disease, JA, GERD, chronic anemia [baseline hemoglobin of 11], migraine, med ical noncompliance as per records, past tobacco abuse presented with 4-day history of cough symptoms [initially dry, later productive of brown sputum] progressively worsening associated with shortness of breath. Of note, patient claims to be compliant with home medications at this admission. She is being managed for the following: Possible HCAP Sepsis POA: Likely secondary to above. Increased respiratory rate and heart rate at presentation. MRSA/respiratory BioFire/lactate WNL. Patient presenting with worsening cough with brown sputum. Admitting CXR with no acute findings. Admitting CTA chest with no PE, mild bilateral patchy infiltrate suggestive of pneumonia present. Patient does not use home oxygen. Patient started on Levaquin 07/28, continue. Continue home inhalers and as needed inhalers. Mucinex. Patient reports some improvement in her breathing and cough. Hypertensive crisis: Likely secondary to acute illness. Of note, history of medical noncompliance. Currently reports compliance with her home blood pressure medications but states she did not take her BP medications on the day of arrival. Continue home labetalol and losartan. Home losartan uptitrated to 100 mg daily. Continue to follow BP. Continue telemetry monitoring. Other chronic medical conditions: Continue with/resume home meds as and when able. 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 suboptimal control, repeat A1c, patient discharged from [facility] due to poor follow-up/unanswered calls as per outpatient note 04/2023. hx restrictive lung disease as per records, JA, patient needs outpatient Pulmo/Sleep eval Chronic anemia, hemoglobin at baseline DVT prophylaxis. Lovenox subcu Full code For detailed information on the patient, refer to today's H&P note. Text document was generated using [employer] voice recognition software. It may contain grammatical or spelling errors. Kindly contact undersigned for clarification of any documentation item in question.
[2023-07-29] MEDS ORDERED: LEVALBUTEROL 1.25 MG/3 ML NEB NEB PRN (15:11)
[2023-07-29] MEDS ORDERED: IPRATROPIUM BROMIDE NEB SOLN 0.02% 0.5MG/2.5ML VIAL INH PRN (15:12)
--- NOTE | 2023-07-29 15:43 | Electrocardiogram Report ---
Test Reason : Blood Pressure : / mmHG Vent. Rate : 112 BPM Atrial Rate : 112 BPM P-R Int : 142 ms QRS Dur : 068 ms QT Int : 334 ms P-R-T Axes : 057 030 037 degrees QTc Int : 455 ms Sinus tachycardia with frequent Premature ventricular complexes Possible Left atrial enlargement Nonspecific T wave abnormality Abnormal ECG When compared with ECG of 15-JUL-2023 17:33, Premature ventricular complexes are now Present Nonspecific T wave abnormality no longer evident in Lateral leads Confirmed by Bo Ansari ([id number]) on 07/29/2023 3:43:19 PM Referred By: REFERRED SELF Confirmed By:Ryder Ansari
[2023-07-29] MEDS: guaiFENesin 600 MG TABCR PO SCH (20:23)
[2023-07-29] MEDS ORDERED: DOXYCYCLINE HYCLATE 100 MG CAP PO SCH (21:00)
[2023-07-30] MEDS ORDERED: cefTRIAXone SODIUM 2,000 MG in DEXTROSE 5 % MINI-B 50 ML IV SCH (00:30)
[2023-07-30] MEDS: COUGH DROP (SUGAR FREE) LOZ 24 LOZ/1 BOX BUCCAL STA (00:47)
[2023-07-30 04:45] LABS: Hematocrit (blood only) 33.9 % (37.0-47.0); Hemoglobin 10.5 g/dl (12.0-16.0); Mean Corpuscular Hemoglobin 22.4 pg (25.0-34.0); Mean Corpuscular Volume 72.3 fL (80.0-100.0); Mean Platelet Volume 11.6 fL (9.4-12.4); Platelet Count 213 K/uL (130-400); RDW Coefficient of Variation 14.9 % (11.5-14.5); RDW Standard Deviation 38.8 fL (36.4-46.3); Red Blood Count 4.69 M/uL (4.20-5.40); White Blood Count 8.29 K/ul (4.8-10.8)
[2023-07-30 04:47] LABS: BUN Creatinine Ratio 16.7 (10-20); Calcium 8.5 mg/dl (8.6-10.3); Creatinine Clr Calc Pharmacy 124.1 ml/min; Est GFR (African American) 112.6 ml/min; Est GFR (Non-African American) 97.1 ml/min; Magnesium 1.8 mg/dl (1.7-2.4); Phosphorus 3.3 mg/dl (2.5-4.9); Potassium 3.4 mmol/L (3.5-5.1)
[2023-07-30 07:29] LABS: Estimated Average Glucose 275 mg/dl; Hemoglobin A1C 11.2 % (4.5-5.6)
[2023-07-30] MEDS ORDERED: INSULIN ASPART 100 UNITS/ML VIAL SC PRN (08:12)
[2023-07-30] MEDS ORDERED: INSULIN, Rapid-Acting PUMP SC SCH ×2 (08:15→09:00)
[2023-07-30] MEDS: POTASSIUM CHLORIDE CRTAB 20 MEQ TABCR PO STA (08:16)
[2023-07-30] MEDS: LOSARTAN POTASSIUM 50 MG TAB PO SCH (08:18)
[2023-07-30] MEDS ORDERED: LOSARTAN POTASSIUM 50 MG TAB PO SCH (09:00)
--- NOTE | 2023-07-30 11:59 | Pharmacy Report ---
Pharmacy Glycemic Sign Off Nt - Date of Service July 30, 2023 - Assessment & Plan ASSESSMENT: * Pharmacy was consulted by Dr Dubose on 07/29/23 for glycemic control and to write orders per [facility] inpatient glycemic control protocol. * Major changes made by pharmacy to antidiabetic regimen include: * Changed to basal/bolus initially- Patient has made changes to their pump settings and we will now trial self-management with her pump * Fasting blood sugar improved at 149 mg/dL this morning. Will transition back to home insulin pump therapy in anticipation of discharge/monitor current settings- see nurse educator note for patient adjustments that were made prior to re-initiation. PLAN FOR INPATIENT GLYCEMIC CONTROL: N * Patient to resume management with home insulin pump * Pharmacy is signing off of glycemic consult and will no longer be making adjustments to inpatient regimen. Please feel free to re-consult if needed. Thank you.
--- NOTE | 2023-07-30 12:02 | Discharge Summary ---
Date of Service July 30, 2023 Admission HPI Per Admitting Provider History obtained from patient, family, and records. Medical history significant for hypertension, history of VT, DM2 on insulin pump, restrictive lung disease as per records, JA, GERD, chronic anemia (baseline hemoglobin of 11 ), migraine, medical noncompliance as per records, past tobacco abuse. Last confinement August 2022 under OB service for uncontrolled hypertension in the setting of 30 weeks AOG. Patient found to have preeclampsia with pulmonary edema. Patient subsequently transferred to [facility]. 4 days history of cough symptoms initially dry later junky. 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 Denies aspiration. Patient brought son to ER for evaluation of few days ago. She initially wanted to get checked out but decided to go home because it was getting late. Worsening symptoms at home. Chest pain from coughing. Achy headache symptoms different from migraine attack. Claims to be compliant with home medications. SBP 240s upon arrival at the ER. Medical History as above Surgical History : Appendectomy, left salpingo-oophorectomy Family History : DM, hypertension Personal/Social history : Past tobacco abuse, no EtOH intake, longterm work Admission Exam Per Admitting Provider GENERAL: Comfortable, pleasant, morbidly obese, no respiratory distress SKIN: Normal color, warm HEENT: Goff palpebral conjunctivae, no ptosis, dry buccal mucosa NECK : Supple, short neck, no tenderness CHEST : Decreased breath sounds, no tenderness HEART : Tachycardic, no obvious murmurs ABDOMEN: Some distention, nontender EXTREMITIES : Minimal LE swelling, no LE tenderness, no other conspicuous deformities noted NEUROLOGIC : Coherent, no facial asymmetry, no other gross focality Principal Diagnosis Possible HCAP Sepsis POA Hypertensive crisis Discharge Exam GENERAL: Comfortable, pleasant, morbidly obese, no respiratory distress, on Room air. SKIN: Normal color, warm HEENT: Goff palpebral conjunctivae, no ptosis, moist buccal mucosa NECK : Supple, short neck, no tenderness CHEST : Decreased breath sounds, no tenderness HEART : rrr, no obvious murmurs ABDOMEN: Some distention, nontender EXTREMITIES : Minimal LE swelling, no LE tenderness, no other conspicuous deformities noted NEUROLOGIC : Coherent, no facial asymmetry, no other gross focality Discharge Data Allergies Allergy/AdvReac Type Severity Reaction Status Date / Time banana Allergy Intermediate swelling Verified 01/25/22 01:58 lisinopril AdvReac Intermediate COUGH Verified 01/25/22 01:58 peach AdvReac Intermediate swelling Verified 01/25/22 01:58 pineapple AdvReac Intermediate swelling Verified 01/25/22 01:58 fruit Allergy Severe Swelling Uncoded 01/25/22 01:59 of Lip/Tongue/Throat Consultations 07/29/23 00:53 ED Decision to Admit Stat Ordered Studies 07/28/23 20:30 CT for pulmonary embolism PE [CT angio chest PE protocol] Stat 07/29/23 01:39 CT head/brain wo con Stat Hospital Course (1) Hypertensive crisis: Plan 38-year-old lady with PMH of HTN, VT, T2DM on insulin pump, restrictive lung disease, JA, GERD, chronic anemia [baseline hemoglobin of 11], migraine, medical noncompliance as per records, past tobacco abuse presented with 4-day history of cough symptoms [initially dry, later productive of brown sputum] progressively worsening associated with shortness of breath. Of note, patient claims to be compliant with home medications at this admission. She is being managed for the following: Possible HCAP Sepsis POA: Likely secondary to above. Increased respiratory rate and heart rate at presentation. MRSA/respiratory BioFire/lactate WNL. Patient presenting with worsening cough with brown sputum. Admitting CXR with no acute findings. Admitting CTA chest with no PE, mild bilateral patchy infiltrate suggestive of pneumonia present. Patient does not use home oxygen. Patient started on Levaquin 07/28, continue to complete the course on discharge. Continue home inhalers. Mucinex. Patient reports now with clear sputum, cough improving, on room air and is feel ing better. Patient is hemodynamically stable and would like to go home. Hypertensive crisis: Likely secondary to acute illness. Of note, history of medical noncompliance. Currently reports compliance with her home blood pressure medications but states she did not take her BP medications on the day of arrival. Continue home labetalol and losartan. Home losartan uptitrated to 50 Mg twice daily. Blood pressure still in 160s /100s. Patient reports her blood pressure about the same at home when she measures at home. Patient communicated that her losartan dose has been uptitrated and amlodipine is being added. Risks and benefits were discussed in detail. Patient communicated to measure her blood pressure twice a day and maintain a log to take to primary care physician office for ongoing evaluation of her blood pressure management. Patient voiced understanding. Other chronic medical conditions: Continue with/resume home meds as and when able. 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 suboptimal control, repeat A1c, patient discharged from [facility] due to poor follow-up/unanswered calls as per outpatient note 04/2023. hx restrictive lung disease as per records, JA, patient needs outpatient Pulmo/Sleep eval Chronic anemia, hemoglobin at baseline DVT prophylaxis. Lovenox subcu Full code Patient is being discharged to home with following instruction at the point of discharge: Follow-up with your primary care physician within a week time and likely you will need labs CBC/CMP/magnesium/phosphorus. You are diagnosed with possible pneumonia, you will be discharged on antibiotic to complete the course. Probiotics will be added. You will need repeat chest imaging in about 6 weeks time to document resolution of pneumonia. Coordinate with your PCP office to set up the test. Since your blood pressure were on the higher side and you stated compliance with your home blood pressure medication prior to arrival. Your losartan dose has been uptitrated to 50 mg twice a day and amlodipine 5 mg has been added in the morning. As discussed at the bedside, measure your blood pressure twice a day, maintain a log to take to your primary care physician for further evaluation/management of your blood pressure medications. Maintain heart healthy/carbohydrate consistent/low-sodium diet to help with weight loss/diabetes/hypertension management. Maintain follow-up with your diabetic clinic closely for long-term management of your diabetes. Given history of restrictive lung disease and concern for sleep apnea, you will benefit from outpatient sleep study and pulmonology evaluation. Coordinate with the PCP office to set up the referral. Take your medications as prescribed. Please make sure that you are able to get your medications today by calling your pharmacy before you leave the hospital so that your treatment continuity is not broken. Text document was generated using my[employer] voice recognition software. It may contain grammatical or spelling errors. Kindly contact undersigned for clarification of any documentation item in question. [facility] Attestation I certify that this patient is under my care and that I, or a physicians video production assistant working with me, had a face to-face encounter that meets the [id number] encounter requirements with this patient. The encounter with the patient was in whole, or in part, for the following medical condition, which is the primary reason for home health care (list medical condition): I certify that, based on my findings, the following services are medically necessary home health services: My clinical findings support the need for the above services because: Further, I certify that my clinical findings support that this patient is homebound (i.e. absences from home require considerable and taxing effort and are for medical reasons or [employer] services or infrequently or of short d uration when for other reasons) because: Certification for Home Health Services: Based on the above findings, I certify that this patient is confined to the home and needs intermittent assisted care, physical therapy and/or speech therapy or continues to need occupational therapy. The patient is under my care, and I have initiated the establishment of the plan of care. This patient will be followed by a physician who will periodically review the plan of care. Total Time Total Time Spent Total Time Spent (In Minutes): 45 Discharge Plan Discharge Items Patient Disposition: Home - Self-Care Reason For Visit: HTN CRISIS, PNX Discharge Diagnosis: Possible HCAP Sepsis POA Hypertensive crisis Activity: Resume your previous activity Non-emergency contact: Primary Care Provider Call non-emergency contact if: you have any medication questions, your symptoms worsen and your temperature is above 101.5 Follow-up/Referrals: Neena Mcgrath MD [Primary Care Provider] - Diet: Carb Consistent or DM2, Heart Healthy and Low Sodium (2gm) Addtl Attending Provider Instructions: Follow-up with your primary care physician within a week time and likely you will need labs CBC/CMP/magnesium/phosphorus. You are diagnosed with possible pneumonia, you will be discharged on antibiotic to complete the course. Probiotics will be added. You will need repeat chest imaging in about 6 weeks time to document resolution of pneumonia. Coordinate with your PCP office to set up the test. Since your blood pressure were on the higher side and you stated compliance with your home blood pressure medication prior to arrival. Your losartan dose has been uptitrated to 50 mg twice a day and amlodipine 5 mg has been added in the morning. As discussed at the bedside, measure your blood pressure twice a day, maintain a log to take to your primary care physician for further evaluation/management of your blood pressure medications. Maintain heart healthy/carbohydrate consistent/low-sodium diet to help with weight loss/diabetes/hypertension management. Maintain follow-up with your diabetic clinic closely for long-term management of your diabetes. Given history of restrictive lung disease and concern for sleep apnea, you will benefit from outpatient sleep study and pulmonology evaluation. Coordinate with the PCP office to set up the referral. Take your medications as prescribed. Please make sure that you are able to get your medications today by calling your pharmacy before you leave the hospital so that your treatment continuity is not broken. Pending Studies at Discharge: Yes Stand-Alone Forms: [facility], Smoking Cessation Medications and DC Order Prescriptions: New levofloxacin 750 mg Tablet 750 mg PO DAILY@1100 5 Days Qty: 5 0RF amlodipine [Norvasc] 5 mg Tablet 5 mg PO QAM Qty: 30 0RF guaifenesin [Mucinex] 600 mg Tablet Extended Release 12hr 1,200 mg PO Q12 5 Days Qty: 20 0RF Probiotic 3 billion cell capsule 3,000 mmu cells PO DAILY 7 Days Qty: 7 0RF Rx Instructions: administer with a meal Continued aspirin 81 mg Tablet,Delayed Release (Dr/Ec) 81 mg PO QAM ferrous sulfate 325 mg (65 mg iron) Tablet 325 mg PO QAM multivitamin [Daily Multi-Vitamin] Tablet 1 tab PO QAM albuterol sulfate [Ventolin HFA] 90 mcg/actuation HFA aerosol inhaler 1 puff INHALATION Q4H PRN (Reason: Shortness Of Breath) labetalol 200 mg tablet 200 mg PO TID insulin aspart U-100 100 unit/mL solution 0 - 160 unit continuous subcutaneous infusion DAILY Rx Instructions: VIA pump clotrimazole-betamethasone 1-0.05 % cream 1 applic TOPICAL BID Rx Instructions: apply to outsides metformin 500 mg tablet extended release 24 hr 1,000 mg PO BID [place] Saline 0.65 % aerosol,spray 1 spray INTRANASAL BID budesonide-formoterol [Symbicort] 160-4.5 mcg/actuation HFA aerosol inhaler 2 puff INHALATION BID Trulicity 0.75 mg/0.5 mL pen injector 0.75 mg SUBCUT WK Changed losartan 50 mg tablet 50 mg PO BID Qty: 60 0RF Discharge Orders: Discharge Order (Routine); Ordered 07/30/23 Ordered By: Jaden Godinez Admission Data Admit Date/Time: 07/29/23 02:20 Attending Provider: Jaden Godinez Admit Provider: Thee Dubose Primary Care Provider: Neena Mcgrath Other Providers: Thee Dubose
[2023-07-30] MEDS: amLODIPine BESYLATE 5 MG TAB PO ONE (12:27)
[2023-07-31] MEDS ORDERED: amLODIPine BESYLATE 5 MG TAB PO SCH (09:00)
== END 2023-07-30 14:39 | disposition home or self-care (01) | DRG 871 ==
LOC: ED 18:43 → 1E 07-29 02:20